=== PATIENT | male | born 1930 | race Caucasian/White ===

== ENCOUNTER 2018-04-14 15:37 | Emergency (ER) | payer OTHER ==
--- OUTSIDE RECORDS SUMMARY | 2018-04-14 15:39 | XMS REPORT | Clinical Summary ---
:1930 Author Organization [facility] Address [address] [place] [address] Phone Care Team Providers Name Role Phone Unavailable Primary Care Provider Unavailable Allergies Active Allergy Reactions Severity Noted Date Comments Amoxicillin Hives High 02/21/2017 Current Medications Prescription Sig. Disp. Refills Start Date End Date Status dextromethorphan-quinidin Take 1 Active e (NUEDEXTA) 20-10 mg Cap capsule by mouth 2 (two) times daily. omeprazole (PRILOSEC) 20 Take 20 mg by Active MG capsule mouth daily. potassium chloride Take 10 mEq Active (KLOR-CON) 10 MEQ CR by mouth tablet daily. hydroCHLOROthiazide Take 25 mg by Active (HYDRODIURIL) 25 MG mouth daily. tablet tamsulosin (FLOMAX) 0.4 Take 0.4 mg Active mg Cp24 24 hr capsule by mouth daily. doxazosin (CARDURA) 2 MG Take 2 mg by Active tablet mouth 2 (two) times daily. gabapentin (NEURONTIN) Take 600 mg Active 300 MG capsule by mouth nightly. donepezil (ARICEPT) 10 MG Take 10 mg by Active tablet mouth nightly. calcium carbonate Take 600 mg Active (OS-AVINASH) 600 mg (1,500 by mouth mg) Tab daily. omega-3 fatty acids-fish Take 2 g by Active oil 340-1,000 mg Cap per mouth 2 (two) capsule times daily. sodium chloride (LELE Place 1 drop Active 128) 2 % ophthalmic into both solution eyes 2 (two) times daily. white petrolatum-mineral Apply 1 drop Active oil (WHITE PETROLATUM) to eye(s) 2 80-20 % Oint (two) times daily. amLODIPine (NORVASC) 10 Take 1 tablet 30 tablet 0 02/24/2017 Active MG tablet (10 mg total) by mouth daily. sodium chloride 0.65% 1 spray by 15 mL 0 02/24/2017 02/24/2018 (OCEAN) 0.65 % nasal Nasal route spray as needed for Congestion. Active Problems Problem Noted Date Atrial fibrillation ([facility]) 02/22/2017 Lymphoma ([facility]) 02/22/2017 Sjogren's disease ([facility]) 02/22/2017 Early onset Alzheimer's dementia 02/22/2017 Hypertension, essential 02/22/2017 BPH (benign prostatic hyperplasia) 02/22/2017 Dysphagia 02/22/2017 Physical deconditioning 02/22/2017 Brain bleed ([facility]) 02/21/2017 Social History Tobacco Use Types Packs/Day Years Used Date Never Smoker Sex Assigned at Date Recorded Not on file Last Filed Vital Signs Not on file Plan of Treatment Not on file Results EKG-SCANNED (04/13/2017 10:44 AM)after 04/13/2017
--- OUTSIDE RECORDS SUMMARY | 2018-04-14 15:39 | XMS REPORT ---
:1930 Author Organization [facility] Address [address] [place] [address] Care Team Providers Name Role Phone FEDERICO JOY Unavailable Unavailable Problems This patient has no known problems. Allergies, Adverse Reactions, Alerts This patient has no known allergies or adverse reactions. Medications This patient has no known medications. Results Test Description Test Time Test Comments Text Results Atomic Results Result Comments CBC W/PLT COUNT & AUTO DIFFERENTIAL 2017-02-24 06:52:00 Test Item Value Reference Range Comments WHITE BLOOD CELL COUNT (BEAKER) (test tkvz=909) 5.2 K/ L 4.0-10.0 RED BLOOD CELL COUNT (BEAKER) (test ilqd=795) 4.14 M/ L 4.20-5.80 HEMOGLOBIN (BEAKER) (test xipy=895) 12.8 GM/DL 13.0-16.8 HEMATOCRIT (BEAKER) (test sxmj=237) 37.2 % 40.0-50.0 MEAN CORPUSCULAR VOLUME (BEAKER) (test umyy=972) 89.9 fL 82.0-98.0 MEAN CORPUSCULAR HEMOGLOBIN (BEAKER) (test jazl=296) 30.9 pg 27.0-33.0 MEAN CORPUSCULAR HEMOGLOBIN CONC (BEAKER) (test cftr=369) 34.4 GM/DL 32.0- 36.0 RED CELL DISTRIBUTION WIDTH (BEAKER) (test pvrh=611) 16.4 % 10.3-14.2 PLATELET COUNT (BEAKER) (test prcx=041) 133 K/CU MM 150-430 MEAN PLATELET VOLUME (BEAKER) (test onaj=336) 7.0 fL 6.5-10.5 NUCLEATED RED BLOOD CELLS (BEAKER) (test uheb=609) 0 /100 WBC 0-0 NEUTROPHILS RELATIVE PERCENT (BEAKER) (test bbep=469) 72 % LYMPHOCYTES RELATIVE PERCENT (BEAKER) (test cjdf=667) 21 % MONOCYTES RELATIVE PERCENT (BEAKER) (test wnnt=751) 5 % EOSINOPHILS RELATIVE PERCENT (BEAKER) (test hpuk=010) 1 % BASOPHILS RELATIVE PERCENT (BEAKER) (test sfso=360) 0 % NEUTROPHILS ABSOLUTE COUNT (BEAKER) (test hubv=486) 3.77 K/ L 1.80-8.00 LYMPHOCYTES ABSOLUTE COUNT (BEAKER) (test gcqw=491) 1.11 K/ L 1.48-4.50 MONOCYTES ABSOLUTE COUNT (BEAKER) (test aypa=769) 0.28 K/ L 0.00-1.30 EOSINOPHILS ABSOLUTE COUNT (BEAKER) (test jjpp=886) 0.06 K/ L 0.00-0.50 BASOPHILS ABSOLUTE COUNT (BEAKER) (test plpl=442) 0.00 K/ L 0.00-0.20 0.00POCT-GLUCOSE [id number] 21:13:00 Test Item Value Reference Range Comments POC-GLUCOSE METER (BEAKER) 116 mg/dL 70-110 TESTED AT [address] (test xsmh=8920) [place] [address] POCT-GLUCOSE [id number] 12:11:00 Test Item Value Reference Range Comments POC-GLUCOSE METER (BEAKER) 120 mg/dL 70-110 TESTED AT [address] (test creh=1783) [place] [address] POCT-GLUCOSE [id number] 08:22:00 Test Item Value Reference Range Comments POC-GLUCOSE METER (BEAKER) 114 mg/dL 70-110 TESTED AT [address] (test dnld=5417) [place] [address] BASIC METABOLIC [id number] 05:49:00 Test Item Value Reference Range Comments SODIUM (BEAKER) (test 134 meq/L 136-145 nwkz=299) POTASSIUM (BEAKER) (test 3.6 meq/L 3.5-5.1 ybvv=537) CHLORIDE (BEAKER) (test 102 meq/L 98-107 xsqs=341) CO2 (BEAKER) (test 23 meq/L 22-29 ivrg=041) BLOOD UREA NITROGEN 24 mg/dL 7-21 (BEAKER) (test gytt=629) CREATININE (BEAKER) (test 1.09 mg/dL 0.57-1.25 epdc=787) GLUCOSE RANDOM (BEAKER) 95 mg/dL 70-105 (test wxvl=849) CALCIUM (BEAKER) (test 8.2 mg/dL 8.4-10.2 iupk=813) EGFR (BEAKER) (test 64 mL/min/1.73 sq m ESTIMATED GFR IS NOT httt=7244) ACCURATE CREATININE CLEARANCE IN PREDICTING GLOMERULAR FILTRATION RATE. ESTIMATED GFR IS NOT APPLICABLE FOR DIALYSIS PATIENTS. Once on admission and Daily AM afterwardsCBC W/PLT COUNT & AUTO [id number] 05:30:00 Test Item Value Reference Range Comments WHITE BLOOD CELL COUNT (BEAKER) (test jcwn=665) 5.0 K/ L 4.0-10.0 RED BLOOD CELL COUNT (BEAKER) (test zxif=082) 3.96 M/ L 4.20-5.80 HEMOGLOBIN (BEAKER) (test jxnb=016) 12.2 GM/DL 13.0-16.8 HEMATOCRIT (BEAKER) (test smoh=628) 35.6 % 40.0-50.0 MEAN CORPUSCULAR VOLUME (BEAKER) (test iqtf=341) 90.1 fL 82.0-98.0 MEAN CORPUSCULAR HEMOGLOBIN (BEAKER) (test 30.8 pg 27.0-33.0 amzp=019) MEAN CORPUSCULAR HEMOGLOBIN CONC (BEAKER) (test 34.2 GM/DL 32.0-36.0 vyew=014) RED CELL DISTRIBUTION WIDTH (BEAKER) (test 16.3 % 10.3-14.2 kndc=570) PLATELET COUNT (BEAKER) (test qghf=018) 136 K/CU MM 150-430 MEAN PLATELET VOLUME (BEAKER) (test twvc=950) 7.2 fL 6.5-10.5 NUCLEATED RED BLOOD CELLS (BEAKER) (test 0 /100 WBC 0-0 vqle=913) NEUTROPHILS RELATIVE PERCENT (BEAKER) (test 61 % bgpo=236) LYMPHOCYTES RELATIVE PERCENT (BEAKER) (test 21 % upvq=437) MONOCYTES RELATIVE PERCENT (BEAKER) (test 17 % ylsr=345) EOSINOPHILS RELATIVE PERCENT (BEAKER) (test 1 % dlkb=739) BASOPHILS RELATIVE PERCENT (BEAKER) (test 0 % cduw=213) NEUTROPHILS ABSOLUTE COUNT (BEAKER) (test 3.02 K/ L 1.80-8.00 cdkk=125) LYMPHOCYTES ABSOLUTE COUNT (BEAKER) (test 1.06 K/ L 1.48-4.50 lhxy=003) MONOCYTES ABSOLUTE COUNT (BEAKER) (test 0.84 K/ L 0.00-1.30 uuqa=118) EOSINOPHILS ABSOLUTE COUNT (BEAKER) (test 0.04 K/ L 0.00-0.50 qqcq=259) BASOPHILS ABSOLUTE COUNT (BEAKER) (test 0.01 K/ L 0.00-0.20 vumg=489) 0.00POCT-GLUCOSE [id number] 22:59:00 Test Item Value Reference Range Comments POC-GLUCOSE METER (BEAKER) 103 mg/dL 70-110 TESTED AT [address] (test laer=7761) [place] [address] POCT-GLUCOSE [id number] 17:41:00 Test Item Value Reference Range Comments POC-GLUCOSE METER (BEAKER) 126 mg/dL 70-110 TESTED AT [address] (test bfvu=9599) [place] [address] POCT-GLUCOSE [id number] 13:19:00 Test Item Value Reference Range Comments POC-GLUCOSE METER (BEAKER) 112 mg/dL 70-110 TESTED AT [address] (test qwxq=2796) [place] [address] HEMOGLOBIN [id number] 08:58:00 Test Item Value Reference Range Comments HEMOGLOBIN A1C (BEAKER) (test vcwm=495) 5.4 % 4.3-6.1 POCT-GLUCOSE [id number] 07:53:00 Test Item Value Reference Range Comments POC-GLUCOSE METER (BEAKER) 103 mg/dL 70-110 TESTED AT [address] (test gulh=9686) [place] [address] [id number] 04:13:00 Test Item Value Reference Range Comments PHOSPHORUS (BEAKER) (test savs=130) 2.2 mg/dL 2.3-4.7 Once on admission and Daily AM afterwardsOnce on admission and Daily AM afterwardsOnce on admission and Daily AM [id number] 04:13:00 Test Item Value Reference Range Comments MAGNESIUM (BEAKER) (test chgk=744) 1.8 mg/dL 1.6-2.6 Once on admission and Daily AM afterwardsOnce on admission and Daily AM afterwardsOnce on admission and Daily AM afterwardsBASIC METABOLIC [id number] 04:13:00 Test Item Value Reference Range Comments SODIUM (BEAKER) (test 139 meq/L 136-145 resj=100) POTASSIUM (BEAKER) (test 3.7 meq/L 3.5-5.1 teti=293) CHLORIDE (BEAKER) (test 106 meq/L 98-107 fcly=833) CO2 (BEAKER) (test 26 meq/L 22-29 vyoo=032) BLOOD UREA NITROGEN 27 mg/dL 7-21 (BEAKER) (test zzvx=843) CREATININE (BEAKER) (test 1.17 mg/dL 0.57-1.25 kazu=120) GLUCOSE RANDOM (BEAKER) 95 mg/dL 70-105 (test gfzy=423) CALCIUM (BEAKER) (test 8.2 mg/dL 8.4-10.2 wiiq=383) EGFR (BEAKER) (test 59 mL/min/1.73 sq m ESTIMATED GFR IS NOT vdge=4830) ACCURATE CREATININE CLEARANCE IN PREDICTING GLOMERULAR FILTRATION RATE. ESTIMATED GFR IS NOT APPLICABLE FOR DIALYSIS PATIENTS. Once on admission and Daily AM afterwardsOnce on admission and Daily AM afterwardsOnce on admission and Daily AM afterwardsCBC W/PLT COUNT & AUTO [id number] 03:57:00 Test Item Value Reference Range Comments WHITE BLOOD CELL COUNT (BEAKER) (test bjkz=200) 6.9 K/ L 4.0-10.0 RED BLOOD CELL COUNT (BEAKER) (test jwmc=251) 3.71 M/ L 4.20-5.80 HEMOGLOBIN (BEAKER) (test ugdh=544) 11.7 GM/DL 13.0-16.8 HEMATOCRIT (BEAKER) (test mtch=214) 33.7 % 40.0-50.0 MEAN CORPUSCULAR VOLUME (BEAKER) (test ntuh=303) 90.8 fL 82.0-98.0 MEAN CORPUSCULAR HEMOGLOBIN (BEAKER) (test 31.4 pg 27.0-33.0 eqjn=198) MEAN CORPUSCULAR HEMOGLOBIN CONC (BEAKER) (test 34.6 GM/DL 32.0-36.0 onhn=712) RED CELL DISTRIBUTION WIDTH (BEAKER) (test 14.3 % 10.3-14.2 fcnq=924) PLATELET COUNT (BEAKER) (test yevv=120) 122 K/CU MM 150-430 MEAN PLATELET VOLUME (BEAKER) (test yvjt=353) 6.6 fL 6.5-10.5 NUCLEATED RED BLOOD CELLS (BEAKER) (test 0 /100 WBC 0-0 ozyc=842) NEUTROPHILS RELATIVE PERCENT (BEAKER) (test 63 % hceb=969) LYMPHOCYTES RELATIVE PERCENT (BEAKER) (test 22 % mqkh=711) MONOCYTES RELATIVE PERCENT (BEAKER) (test 14 % jcco=456) EOSINOPHILS RELATIVE PERCENT (BEAKER) (test 1 % wlzm=752) BASOPHILS RELATIVE PERCENT (BEAKER) (test 0 % lgkr=977) NEUTROPHILS ABSOLUTE COUNT (BEAKER) (test 4.35 K/ L 1.80-8.00 ltgf=826) LYMPHOCYTES ABSOLUTE COUNT (BEAKER) (test 1.53 K/ L 1.48-4.50 ccdj=970) MONOCYTES ABSOLUTE COUNT (BEAKER) (test 0.96 K/ L 0.00-1.30 knzr=771) EOSINOPHILS ABSOLUTE COUNT (BEAKER) (test 0.05 K/ L 0.00-0.50 ecjx=733) BASOPHILS ABSOLUTE COUNT (BEAKER) (test 0.00 K/ L 0.00-0.20 wftg=688) 0.00POCT-GLUCOSE [id number] 00:35:00 Test Item Value Reference Range Comments POC-GLUCOSE METER (BEAKER) 109 mg/dL 70-110 TESTED AT [address] (test rurd=0129) [place] [id number] POCT-GLUCOSE [id number] 21:03:00 Test Item Value Reference Range Comments POC-GLUCOSE METER (BEAKER) 149 mg/dL 70-110 TESTED AT [address] (test ivdx=5594) [place] [id number] POCT-GLUCOSE [id number] 12:26:00 Test Item Value Reference Range Comments POC-GLUCOSE METER (BEAKER) 153 mg/dL 70-110 TESTED AT [address] (test iiza=2771) [place] [address] [id number] 10:44:00 Test Item Value Reference Range Comments RPR SCREEN (BEAKER) (test qsom=554) Nonreactive Nonreactive SEDIMENTATION [id number] 09:43:00 Test Item Value Reference Range Comments SEDIMENTATION RATE, ERYTHROCYTE (BEAKER) (test 33 mm/HR 0-40 rsjq=132) VITAMIN [id number] 09:34:00 Test Item Value Reference Range Comments VITAMIN B12 (BEAKER) (test tofs=670) 317 pg/mL 213-816 TSH/FREE T4 IF [id number] 09:34:00 Test Item Value Reference Range Comments THYROID STIMULATING HORMONE (BEAKER) (test 0.69 uIU/mL 0.35-4.94 dhkr=593) TROPONIN [id number] 09:03:00 Test Item Value Reference Range Comments TROPONIN I (BEAKER) (test xwxj=969) 0.01 ng/mL 0.00-0.03 Effective 06/24/2014: Reference Range ChangeNew: 0.00-0.03 Previous 0.00- 0.15Troponin I (TnI) levels must be interpreted in the context of the presenting symptoms and the clinical findings. Elevated TnI levels indicate myocardial damage, but are not specific for ischemic heart disease. Elevated TnI levels are seen in patients with other cardiac conditions (including myocarditis and congestive heartfailure), and slight TnI elevations occur in patients with other conditions, including sepsis, renalfailure, acidosis, acute neurological disease, and persistent tachyarrhythmia.Once on admission and Daily AM afterwardsLIPID [id number] 08:56:00 Test Item Value Reference Range Comments TRIGLYCERIDES (BEAKER) (test qgod=233) 46 mg/dL CHOLESTEROL (BEAKER) (test vqdt=088) 201 mg/dL HDL CHOLESTEROL (BEAKER) (test lfge=652) 55 mg/dL LDL CHOLESTEROL CALCULATED (BEAKER) (test 137 mg/dL mgoe=634) Triglyceride Reference Range: Low Risk <150 Borderline 150- 199 High Risk 200-499 Very High Risk >=500Cholesterol Reference Range: Low Risk <200 Borderline 200-239 High Risk > 240HDL Cholesterol Reference Range: Low Risk >=60 High Risk <40LDL Cholesterol Reference Range: Optimal <100 Near Optimal 100-129 Borderline 130-159 High 160-189 Very High >=190 Once on admission and Daily AM afterwardsBASIC METABOLIC [id number] 08:56:00 Test Item Value Reference Range Comments SODIUM (BEAKER) (test 137 meq/L 136-145 apmg=317) POTASSIUM (BEAKER) (test 3.8 meq/L 3.5-5.1 fxfw=520) CHLORIDE (BEAKER) (test 101 meq/L 98-107 mjig=162) CO2 (BEAKER) (test 24 meq/L 22-29 xczk=365) BLOOD UREA NITROGEN 23 mg/dL 7-21 (BEAKER) (test xdbx=125) CREATININE (BEAKER) (test 1.12 mg/dL 0.57-1.25 vzwk=628) GLUCOSE RANDOM (BEAKER) 132 mg/dL 70-105 (test gpyb=848) CALCIUM (BEAKER) (test 8.5 mg/dL 8.4-10.2 kpoo=571) EGFR (BEAKER) (test 62 mL/min/1.73 sq m ESTIMATED GFR IS NOT ztgw=8994) ACCURATE CREATININE CLEARANCE IN PREDICTING GLOMERULAR FILTRATION RATE. ESTIMATED GFR IS NOT APPLICABLE FOR DIALYSIS PATIENTS. Once on admission and Daily AM afterwardsHEPATIC FUNCTION [id number] 08:55: 00 Test Item Value Reference Range Comments TOTAL PROTEIN (BEAKER) (test miwn=987) 6.7 gm/dL 6.0-8.3 ALBUMIN (BEAKER) (test xhco=2572) 3.9 g/dL 3.5-5.0 BILIRUBIN TOTAL (BEAKER) (test fpon=888) 0.6 mg/dL 0.2-1.2 BILIRUBIN DIRECT (BEAKER) (test guwx=219) 0.2 mg/dL 0.1-0.5 ALKALINE PHOSPHATASE (BEAKER) (test fjyf=256) 71 U/L 40-150 AST (SGOT) (BEAKER) (test djaq=466) 18 U/L 5-34 ALT (SGPT) (BEAKER) (test ttuh=744) 19 U/L 6-55 [id number] 08:38:00 Test Item Value Reference Range Comments PARTIAL THROMBOPLASTIN TIME (BEAKER) (test 29.7 seconds 22.5-36.0 mspb=568) PROTHROMBIN [id number] 08:37:00 Test Item Value Reference Range Comments PROTIME (BEAKER) (test zlbn=620) 15.8 seconds 11.7-14.7 INR (BEAKER) (test qgre=887) 1.3 <=5.9 RECOMMENDED COUMADIN/WARFARIN INR THERAPY RANGESSTANDARD DOSE: 2.0 - 3.0 Includes: PROPHYLAXIS forvenous thrombosis, systemic embolization; TREATMENT for venous thrombosis and/or pulmonary embolus.HIGH RISK: Target INR is 2.5-3.5 for patients with mechanical heart valves.CBC W/PLT COUNT & AUTO [id number] 08:35:00 Test Item Value Reference Range Comments WHITE BLOOD CELL COUNT (BEAKER) (test hbei=868) 4.6 K/ L 4.0-10.0 RED BLOOD CELL COUNT (BEAKER) (test qier=306) 4.03 M/ L 4.20-5.80 HEMOGLOBIN (BEAKER) (test jfaj=459) 12.5 GM/DL 13.0-16.8 HEMATOCRIT (BEAKER) (test jixz=284) 36.4 % 40.0-50.0 MEAN CORPUSCULAR VOLUME (BEAKER) (test xwtb=190) 90.4 fL 82.0-98.0 MEAN CORPUSCULAR HEMOGLOBIN (BEAKER) (test 31.1 pg 27.0-33.0 gnvj=593) MEAN CORPUSCULAR HEMOGLOBIN CONC (BEAKER) (test 34.5 GM/DL 32.0-36.0 rmax=661) RED CELL DISTRIBUTION WIDTH (BEAKER) (test 14.3 % 10.3-14.2 sumf=709) PLATELET COUNT (BEAKER) (test pawt=961) 129 K/CU MM 150-430 MEAN PLATELET VOLUME (BEAKER) (test xczz=708) 6.6 fL 6.5-10.5 NUCLEATED RED BLOOD CELLS (BEAKER) (test 0 /100 WBC 0-0 ysya=126) NEUTROPHILS RELATIVE PERCENT (BEAKER) (test 83 % caqb=376) LYMPHOCYTES RELATIVE PERCENT (BEAKER) (test 13 % wakt=609) MONOCYTES RELATIVE PERCENT (BEAKER) (test 4 % otsu=541) EOSINOPHILS RELATIVE PERCENT (BEAKER) (test 0 % azav=868) BASOPHILS RELATIVE PERCENT (BEAKER) (test 0 % oznf=714) NEUTROPHILS ABSOLUTE COUNT (BEAKER) (test 3.79 K/ L 1.80-8.00 odes=761) LYMPHOCYTES ABSOLUTE COUNT (BEAKER) (test 0.58 K/ L 1.48-4.50 eduf=540) MONOCYTES ABSOLUTE COUNT (BEAKER) (test 0.16 K/ L 0.00-1.30 phfw=871) EOSINOPHILS ABSOLUTE COUNT (BEAKER) (test 0.01 K/ L 0.00-0.50 lfar=208) BASOPHILS ABSOLUTE COUNT (BEAKER) (test 0.01 K/ L 0.00-0.20 argb=508) 0.00
[2018-04-14 16:26] LABS: Absolute Lymphocytes (CBC) 1.1 K/uL (0.7-4.9); Absolute Monocytes 0.8 K/uL (0.1-1.3); Absolute Neutrophil 5.8 K/uL (1.8-8.0); Basophils % 0.7 % (0-1.3); Eosinophils % 2.2 % (0-4.4); Hematocrit 37.3 % (39.6-49.0); Lymphocytes % 14.1 % (15.3-44.8); MCH 31.3 pg (27.0-35.0); MCV 90.4 fL (80-100); MPV 8.1 fL (7.6-11.3); Monocytes % 10.2 % (3.3-12.3); RBC Red Blood Cell Count 4.13 M/uL (4.33-5.43)
[2018-04-14 16:36] LABS: Protime INR 0.99
[2018-04-14 16:37] LABS: ALT/SGPT 15 U/L (12-78); AST/SGOT 21 U/L (15-37); Albumin 2.8 g/dL (3.4-5.0); Alkaline Phosphatase 119 U/L (45-117); BUN Blood Urea Nitrogen 20 mg/dL (7-18); Bicarbonate 26 mmol/L (21-32); Bilirubin Direct < 0.1 mg/dL (0-0.2); Bilirubin Total 0.4 mg/dL (0.2-1.0); CKMB Creatine Kinase MB < 1.0 ng/mL (0.3-3.6); Creatine Phosphokinase 52 U/L (39-308); Glucose Level 130 mg/dL (74-106); Lipase 131 U/L (73-393); Potassium 4.1 mmol/L (3.5-5.1); Protein, Total 6.7 g/dL (6.4-8.2); Sodium Level 139 mmol/L (136-145); Troponin (Emerg Dept Use Only) < 0.02 ng/mL (0.0-0.045)
[2018-04-14] MEDS ORDERED: NA CHLORIDE 0.9% 500 ML ONE ×2 (16:42→17:18)
--- NOTE | 2018-04-14 16:58 | RAD REPORT ---
EXAM DESCRIPTION: RAD - Chest Single View - 04/14/2018 4:36 pm CLINICAL HISTORY: tachycardia Chest pain. COMPARISON: Chest Single View dated 02/21/2017; Chest Single View dated 09/27/2016; Chest Single View dated 04/09/2016; Chest Single View dated 04/02/2016 FINDINGS: Portable technique limits examination quality. The lungs are underinflated resulting in vascular crowding. The heart is mildly moderately enlarged. No displaced fractures. IMPRESSION: No acute intrathoracic process suspected.
[2018-04-14] MEDS ORDERED: NA CHLORIDE 0.9% 1,000 ML ONE (18:12)
[2018-04-14 18:20] LABS: Urine Blood NEGATIVE (NEG); Urine Glucose NEGATIVE (NEG); Urine Protein NEGATIVE (NEG); Urine Specific Gravity 1.025 (1.005-1.030)
[2018-04-14 18:23] LABS: Urine Bacteria <20 /HPF (NONE SEEN); Urine Culture Reflex Order NOT NEEDED; Urine Mucus 1+ /HPF (NONE SEEN); Urine RBC <5 /HPF (NONE SEEN)
--- NOTE | 2018-04-14 20:37 | ER ---
Nurse's Notes [facility] Name: Isis Schultz Age: 87 yrs Sex: Male : 1930 Arrival Date: 04/14/2018 Time: 15:40 Bed 18 Private MD: Brian Leonard C Diagnosis: Chronic atrial fibrillation Presentation: 04/14 15:40 Presenting complaint: EMS states: called out to senior living for HTN, SOB, elevated HR, em and hyperglycemia, VS per EMS BP 130/70, HR 120, RR 24, BGL 158, pt denies CP, no apparent distress noted. Transition of care: patient was not received from another setting of care. Onset of symptoms was April 14, 2018. Risk Assessment: Do you want to hurt yourself or someone else? Patient reports no desire to harm self or others. Initial Sepsis Screen: Does the patient meet any 2 criteria? RR > 20 per min. Temp <36.0*C (96.8*F)) or > 38.3*C (100.4*F). HR > 90 bpm. Yes Does the patient have a suspected source of infection? No. Patient's initial sepsis screen is negative. Care prior to arrival: None. 15:40 Method Of Arrival: EMS: [facility] em 15:40 Acuity: CAROL ANN 2 iw Triage Assessment: 15:46 General: Appears in no apparent distress. comfortable, Behavior is calm, cooperative. em Pain: Denies pain. Historical: - Allergies: 15:46 Amoxicillin; em - PMHx: 15:46 Atrial Fib; GERD; Hypertension; Kidney stones; LYMPHOMA; melanoma; sjoger syndrome; em - Immunization history:: Adult Immunizations up to date. - Social history:: Smoking status: unknown. - Ebola Screening: : Patient negative for fever greater than or equal to 101.5 degrees Fahrenheit, and additional compatible Ebola Virus Disease symptoms Patient denies exposure to infectious person Patient denies travel to an Ebola-affected area in the 21 days before illness onset No symptoms or risks identified at this time. Screenin:48 Abuse screen: no apparent signs noted. Nutritional screening: Difficulty em chewing/swallowing? Yes. Tuberculosis screening: No symptoms or risk factors identified. Fall Risk None identified. Assessment: 15:50 General: Appears in no apparent distress. comfortable, Behavior is calm, cooperative. em Pain: Denies pain. Neuro: Level of Consciousness is awake, alert, obeys commands, Oriented to person, place. Cardiovascular: Denies chest pain, Heart tones S1 S2 present Capillary refill < 3 seconds Patient's skin is warm and dry. Rhythm is atrial fibrillation Chest pain is denied. Respiratory: Airway is patent Respiratory effort is even, Respiratory pattern is regular, tachypnea Breath sounds are clear bilaterally. GI: Abdomen is flat, Abd is soft and non tender X 4 quads. Patient currently denies diarrhea, nausea, vomiting. : : No signs and/or symptoms were reported regarding the genitourinary system. EENT: No signs and/or symptoms were reported regarding the EENT system. Derm: mass noted to the top of the head, pt states it is skin cancer. Musculoskeletal: Capillary refill < 3 seconds. 16:20 Reassessment: Patient appears in no apparent distress at this time. I agree with above iw assessment by Frederick France LVN. 16:46 Reassessment: Received lab alert for Lactate 3.0, sepsis protocol has joellen activated. rb1 MARELY Mack has been notified. 16:50 Reassessment: Patient appears in no apparent distress at this time. Patient and/or em family updated on plan of care and expected duration. Pain level reassessed. 17:40 Reassessment: Patient appears in no apparent distress at this time. Patient and/or em family updated on plan of care and expected duration. Pain level reassessed. Patient is alert, oriented x 3, equal unlabored respirations, skin warm/dry/pink. Patient denies pain at this time. Patient states symptoms have improved. 18:30 Reassessment: Patient appears in no apparent distress at this time. Patient and/or em family updated on plan of care and expected duration. Pain level reassessed. Patient is alert, oriented x 3, equal unlabored respirations, skin warm/dry/pink. Patient denies pain at this time. Patient states symptoms have improved. 19:20 General: Appears in no apparent distress. comfortable, Behavior is calm, cooperative. ao Pain: Denies pain. Neuro: Level of Consciousness is confused, Oriented to person, place, Moves all extremities. Cardiovascular: Denies chest pain, shortness of breath, Capillary refill < 3 seconds Patient's skin is warm and dry. Respiratory: Airway is patent Respiratory effort is even, unlabored, Respiratory pattern is regular. GI: Abdomen is flat. : No signs and/or symptoms were reported regarding the genitourinary system. EENT: No signs and/or symptoms were reported regarding the EENT system. Derm: Skin is intact, Skin is pink, warm \T\ dry. normal, Skin temperature is warm. Musculoskeletal: Capillary refill < 3 seconds. 20:23 Reassessment: Patient appears in no apparent distress at this time. Patient and/or ao family updated on plan of care and expected duration. Pain level reassessed. Patient is alert, oriented x 3, equal unlabored respirations, skin warm/dry/pink. Patient to be discharge as stated by MIGUEL Ospina. 20:51 Reassessment: Called report to BRIDGETTE Vazquez. Nurse will check in transportation and called ao me back. 21:00 Reassessment: Spoke to Taylor and stated that family wish patient to go in an ambulance ao and that they are aware that they might be getting a bill. 21:31 Reassessment: Patient left ER by ER. patient VS stable at this moment. ao Vital Signs: 15:47 BP 113 / 96; Pulse 120; Resp 24; Temp 100.0(O); Pulse Ox 97% on R/A; Pain 0/10; em 16:30 BP 144 / 66; Pulse 80; Resp 20; Pulse Ox 98% on R/A; dh3 17:31 BP 147 / 86; Pulse 74; Resp 15; Pulse Ox 99% on R/A; dh3 18:29 BP 136 / 61; Pulse 71; Resp 18; Temp 98.7(O); Pulse Ox 99% on R/A; Pain 0/10; em 19:20 BP 159 / 72; Pulse 92; Resp 14; Pulse Ox 97% on R/A; Pain 0/10; ao 20:23 BP 135 / 73; Pulse 70; Resp 15; Pulse Ox 98% on R/A; Pain 0/10; ao ED Course: 15:40 Patient arrived in ED. em 15:40 Phillip Fermin PA is PHCP. cp 15:40 Carlos Levy MD is Attending Physician. cp 15:45 EKG done, by ED staff, reviewed by Carlos Levy MD. em 15:47 Arm band placed on. em 15:48 Patient has correct armband on for positive identification. Placed in gown. Bed in low em position. Call light in reach. Side rails up X2. 15:50 First set of blood cultures drawn by me, Wound culture swab sent to lab. iw 16:02 Initial lab(s) drawn, by me, sent to lab. Inserted saline lock: 20 gauge in left iw forearm, using aseptic technique. Blood collected. 16:20 Frederick France LVN is Primary Nurse. em 16:20 No provider procedures requiring assistance completed. em 16:34 X-ray completed. Portable x-ray completed in exam room. Patient tolerated procedure la2 well. 16:36 Chest Single View XRAY In Process Unspecified. EDMS 16:54 Brian Leonard MD is Private Physician. iw 17:30 Straight cath inserted, using sterile technique, 18 Fr. Specimen obtained. Returned em clear yellow urine. Patient tolerated well. 17:30 Urine collected: straight cath specimen, clear, Amount Returned: 200mL. em 18:05 Triage completed. iw 20:35 Brian Leonard MD is Referral Physician. cp 21:32 IV discontinued, intact, bleeding controlled, No redness/swelling at site. Pressure ao dressing applied. Administered Medications: 16:47 Drug: NS 0.9% 500 ml Route: IV; Rate: bolus; Site: left femoral; em 17:35 Follow up: IV Status: Completed infusion; IV Intake: 500ml em 17:20 Drug: NS 0.9% 500 ml Route: IV; Rate: bolus; Site: left forearm; em 18:00 Follow up: IV Status: Completed infusion; IV Intake: 500ml em 18:25 Drug: NS 0.9% 1000 ml Route: IV; Rate: 75 ml/hr; Site: left forearm; em Intake: 17:35 IV: 500ml; Total: 500ml. em 18:00 IV: 500ml; Total: 1000ml. em Outcome: 20:36 Discharge ordered by . cp 21:31 Discharged to senior living. Report called to BRIDGETTE Vazquezwood casket assembler form completed. ao Valuables list done. Patient transported by EMS 21:31 Condition: stable 21:31 Discharge instructions given to patient, senior living, EMS, Instructed on discharge instructions, follow up and referral plans. Demonstrated understanding of instructions, follow-up care, Lab result send to senior living 21:33 Patient left the ED. ao Addendum: 04/21/2018 12:49 Addendum: Culture Results: Positive wound culture. Phone call Attempt #2 left voicemail.a a5 Signatures: Dispatcher [employer] EDFrederick Meyer, BREAKDOWN WORKER BREAKDOWN WORKER em Zara Villeda RN Libby Barron RN RN aa5 Gabriela Montano RN RN ss Phillip Fermin PA PA cp Barber, Rebecca RN RN rb1 Angelo Gardner RN RN Teresa Gallo 3 Melissa Bernal Corrections: (The following items were deleted from the chart) 04/14 15:47 15:47 BP 113 / 96; Pulse 120bpm; Resp 24bpm; Pulse Ox 97% RA; Temp 100.0F Oral; Pain em 0/10; em 21:31 20:51 Reassessment: Called report to BRIDGETTE Jamil. Nurse will check in transportation and ao called me back. ao 04/22 08:05 04/18/2018 09:47 Addendum: Culture Results: Positive urine culture. No further action aa5 required. Bacteria sensitive to prescribed antibiotic. ss
--- NOTE | 2018-04-14 20:37 | EDPHYS ---
Physician Documentation [facility] Name: Isis Schultz Age: 87 yrs Sex: Male : 1930 Arrival Date: 04/14/2018 Time: 15:40 Bed 18 Private MD: Brian Leonard C ED Physician Carlos Levy HPI: 04/14 15:52 This 87 yrs old Male presents to ER via EMS with complaints of General cp Weakness. 15:52 Onset: The symptoms/episode began/occurred today. cp 15:52 EMS reports they were called for patient having general weakness, elevated HR, elevated cp blood glucose, and elevated blood pressure today. 15:52 Associated signs and symptoms: Pertinent positives: shortness of breath, Pertinent cp negatives: abdominal pain, chest pain, cough, diarrhea, fever, headache, vomiting. Historical: - Allergies: 15:46 Amoxicillin; em - PMHx: 15:46 Atrial Fib; GERD; Hypertension; Kidney stones; LYMPHOMA; melanoma; sjoger syndrome; em - Immunization history:: Adult Immunizations up to date. - Social history:: Smoking status: unknown. - Ebola Screening: : Patient negative for fever greater than or equal to 101.5 degrees Fahrenheit, and additional compatible Ebola Virus Disease symptoms Patient denies exposure to infectious person Patient denies travel to an Ebola-affected area in the 21 days before illness onset No symptoms or risks identified at this time. ROS: 15:55 Constitutional: Positive for poor PO intake, Negative for body aches, chills, fever. cp 15:55 Cardiovascular: Negative for chest pain. cp 15:55 Respiratory: Positive for shortness of breath, Negative for cough, wheezing. 15:55 Abdomen/GI: Negative for abdominal pain, vomiting, diarrhea, constipation, black/tarry stool, rectal bleeding. 15:55 Neuro: Positive for general weakness, Negative for altered mental status, headache. 15:55 All other systems are negative. Exam: 16:00 ECG was reviewed by the Attending Physician. cp 16:00 Constitutional: The patient appears in no acute distress, alert, awake, cp non-diaphoretic, non-toxic, well developed, well nourished. 16:00 Head/face: Noted is chronic wound left posterior scalp with mild drainage and mild cp erythema. 16:00 Eyes: Periorbital structures: appear normal, Pupils: equal, round, and reactive to light and accomodation, Extraocular movements: intact throughout, Conjunctiva: normal, no exudate, no injection, Sclera: no appreciated abnormality, Lids and lashes: appear normal, bilaterally. 16:00 ENT: External ear(s): are unremarkable, Ear canal(s): are normal, clear, TM's: bulging, is not appreciated, bilaterally, dullness, bilaterally, erythema, is not appreciated, bilaterally, Nose: is normal, Mouth: Lips: dry, Oral mucosa: dry, Posterior pharynx: is normal, airway is patent, no erythema, no exudate, Voice: is normal. 16:00 Neck: ROM/movement: is normal, is supple, without pain, no range of motions limitations, no meningismus, no nuchal rigidity. 16:00 Chest/axilla: Inspection: normal, Palpation: is normal, no crepitus, no tenderness. 16:00 Cardiovascular: Rate: tachycardic, Rhythm: irregularly irregular, Pulses: Pulses are 2+ in right radial artery and left radial artery. JVD: is not appreciated. 16:00 Respiratory: the patient does not display signs of respiratory distress, Respirations: normal, no use of accessory muscles, no retractions, no splinting, no tachypnea, labored breathing, is not present, Breath sounds: are clear throughout, no decreased breath sounds, no stridor, no wheezing. 16:00 Abdomen/GI: Inspection: abdomen appears normal, Bowel sounds: active, all quadrants, Palpation: abdomen is soft and non-tender, in all quadrants, rebound tenderness, is not appreciated, involuntary guarding, is not appreciated. 16:00 Back: pain, is absent. 16:00 Neuro: Orientation: to person, place \T\ time. Mentation: lucid, able to follow commands. Vital Signs: 15:47 BP 113 / 96; Pulse 120; Resp 24; Temp 100.0(O); Pulse Ox 97% on R/A; Pain 0/10; em 16:30 BP 144 / 66; Pulse 80; Resp 20; Pulse Ox 98% on R/A; dh3 17:31 BP 147 / 86; Pulse 74; Resp 15; Pulse Ox 99% on R/A; dh3 18:29 BP 136 / 61; Pulse 71; Resp 18; Temp 98.7(O); Pulse Ox 99% on R/A; Pain 0/10; em 19:20 BP 159 / 72; Pulse 92; Resp 14; Pulse Ox 97% on R/A; Pain 0/10; ao 20:23 BP 135 / 73; Pulse 70; Resp 15; Pulse Ox 98% on R/A; Pain 0/10; ao MDM: 15:43 Patient medically screened. cp 17:00 Differential diagnosis: URI, UTI, gastroenteritis, sepsis, dehydration, electrolyte cp abnormality. 20:30 Data reviewed: vital signs, nurses notes, lab test result(s), EKG, radiologic studies, cp plain films. 20:30 Test interpretation: by ED physician or midlevel provider: ECG, plain radiologic cp studies. Counseling: I had a detailed discussion with the patient and/or guardian regarding: the historical points, exam findings, and any diagnostic results supporting the discharge/admit diagnosis, lab results, radiology results, the need for outpatient follow up, to return to the emergency department if symptoms worsen or persist or if there are any questions or concerns that arise at home. Response to treatment: the patient's symptoms have markedly improved after treatment, VSS. Patient reports to be feeling better after IV fluids. Will discharge to senior care for continued monitoring. 04/14 15:43 Order name: Wound Culture; Complete Time: 07:22 04/14 15:43 Order name: Urine Culture; Complete Time: 07:22 04/14 15:43 Order name: Urine Microscopic Only; Complete Time: 18:26 04/14 18:27 Interpretation: Reviewed. 04/14 15:43 Order name: Basic Metabolic Panel; Complete Time: 16:39 04/14 16:40 Interpretation: Normal except: GLUC 130; BUN 20; GFR 57; CA 8.1. 04/14 15:43 Order name: Blood Culture Adult (2) 04/14 15:43 Order name: CBC with Diff; Complete Time: 16:39 04/14 16:40 Interpretation: Normal except: RBC 4.13; HGB 12.9; HCT 37.3; MCV 90.4; LYM% 14.1. 04/14 15:43 Order name: Ckmb; Complete Time: 16:39 04/14 15:43 Order name: CPK; Complete Time: 16:39 04/14 15:43 Order name: Lactate; Complete Time: 17:04 cp 04/14 17:05 Interpretation: Abnormal: LAC 3.0. cp 04/14 15:43 Order name: LFT's; Complete Time: 16:39 04/14 17:04 Interpretation: Normal except: ALK 119; ALB 2.8; GLOB 3.9; A/G 0.7. 04/14 15:43 Order name: Lipase; Complete Time: 16:39 04/14 15:43 Order name: Procalcitonin; Complete Time: 17:04 cp 04/14 17:37 Interpretation: Procalcitonin < 0.05; Reviewed. 04/14 15:43 Order name: Protime (+inr); Complete Time: 16:39 04/14 15:43 Order name: Ptt, Activated; Complete Time: 16:39 04/14 15:43 Order name: Cath; Complete Time: 17:39 04/14 15:43 Order name: Troponin (emerg Dept Use Only); Complete Time: 16:39 04/14 16:41 Interpretation: TROPED < 0.02; Reviewed. 04/14 15:43 Order name: Chest Single View XRAY; Complete Time: 17:04 04/14 15:43 Order name: Accucheck; Complete Time: 17:39 04/14 15:43 Order name: Cardiac monitoring; Complete Time: 16:19 04/14 15:43 Order name: EKG - Nurse/Tech; Complete Time: 16:19 04/14 15:43 Order name: IV Saline Lock - Large Bore; Complete Time: 16:19 04/14 15:43 Order name: Labs collected and sent; Complete Time: 16:19 04/14 15:43 Order name: O2 Per Protocol; Complete Time: 16:19 04/14 15:43 Order name: O2 Sat Monitoring; Complete Time: 16:19 04/14 17:41 Order name: Urine Dipstick--Ancillary (enter results); Complete Time: 18:26 eb 04/14 18:26 Interpretation: Reviewed. 04/14 19:39 Order name: Lactate Sepsis 2 HR Follow-up; Complete Time: 20:08 EDMS 04/14 20:09 Interpretation: LACTATE SEPSIS 1.3; Reviewed. 04/14 15:43 Order name: Urine Dipstick-Ancillary (obtain specimen); Complete Time: 17:39 cp EC:00 Rate is 117 beats/min. Rhythm is irregularly irregular. QRS interval is normal. QT cp interval is normal. Interpreted by me. Reviewed by me. Administered Medications: 16:47 Drug: NS 0.9% 500 ml Route: IV; Rate: bolus; Site: left femoral; em 17:35 Follow up: IV Status: Completed infusion; IV Intake: 500ml em 17:20 Drug: NS 0.9% 500 ml Route: IV; Rate: bolus; Site: left forearm; em 18:00 Follow up: IV Status: Completed infusion; IV Intake: 500ml em 18:25 Drug: NS 0.9% 1000 ml Route: IV; Rate: 75 ml/hr; Site: left forearm; em Disposition: 22:00 Chart complete. 04/15 10:02 Co-signature as Attending Physician, Carlos Levy MD. rn Disposition: 04/14/18 20:36 Discharged to Home. Impression: Chronic atrial fibrillation. - Condition is Stable. - Discharge Instructions: Atrial Fibrillation. - Medication Reconciliation Form, Thank You Letter, Antibiotic Education, Prescription Opioid Use, SBAR form form. - Follow up: Brian Leonard MD; When: 1 - 2 days; Reason: Recheck today's complaints. - Problem is new. - Symptoms have improved. Signatures: Dispatcher [employer] [facility] Frederick France, FARM MACHINERY ENGINE MECHANIC FARM MACHINERY ENGINE MECHANIC Carlos Santillan MD MD rn Phillip Fermin PA PA Angelo Gardner, RN RN ao Corrections: (The following items were deleted from the chart) 04/14 16:40 16:39 Normal except: GLUC 130; BUN 20; GFR 57. [facility] :09 20:08 Reviewed. [facility] 21:02 19:12 LACTATE+C.LAB.BRZ ordered. [facility] EDMO 21:33 20:36 04/14/2018 20:36 Discharged to Home. Impression: Chronic atrial fibrillation. ao Condition is Stable. Forms are Medication Reconciliation Form, Thank You Letter, Antibiotic Education, Prescription Opioid Use. Follow up: Brian Leonard; When: 1 - 2 days; Reason: Recheck today's complaints. Problem is new. Symptoms have improved. 04/15 20:08 04/14 15:52 EMS reports they were called due to concerns for patient having elevated cp blood glucose, low blood pressure, general weakness today. cp
[2018-04-14 21:53] VITALS: TEMP 98.7
[2018-04-14 21:56] VITALS: BP 135/73; O2SAT 98
--- NOTE | 2018-04-15 08:53 | EKG ---
Test Date: 2018-04-14 Test Time: 15:55:12 Lung Puller: GRACE MEASUREMENT RESULTS: Intervals: Rate: 117 MT: QRSD: 98 QT: 274 QTc: 382 [place]: P: MT: QRS: -31 T: -76 INTERPRETIVE STATEMENTS: Atrial fibrillation with rapid ventricular response Left axis deviation Moderate voltage criteria for LVH, may be normal variant Nonspecific ST and T wave abnormality, probably digitalis effect Abnormal ECG Compared to ECG 02/21/2017 01:19:31 Left-axis deviation now present Sinus rhythm no longer present Atrial premature complex(es) no longer present First degree AV block no longer present ST (T wave) deviation still present Electronically Signed On 04-15-18 08:52:36 CDT by Kd Castro
== END 2018-04-14 21:33 | disposition home or self-care (01) ==
LOC: ER 15:37
DX: I48.2 Chronic atrial fibrillation (principal); R53.1 Weakness; K21.9 Gastro-esophageal reflux disease without esophagitis; C85.90 Non-Hodgkin lymphoma, unspecified, unspecified site; M35.00 Sjogren syndrome, unspecified; Z85.820 Personal history of malignant melanoma of skin; I10 Essential (primary) hypertension; Z88.1 Allergy status to other antibiotic agents
CPT/HCPCS: 36415; 51702; 71045; 80048; 80076; 82550; 82553; 83605 ×2; 83690; 84145; 84484; 85025; 85610; 85730; 87040 ×2; 87070; 87077; 87086; 87088; 87186; 87205; 93005; 96360; 99284; J7030; 81003; 81015

== ENCOUNTER 2018-06-08 14:45 | Inpatient (IN) | payer OTHER ==
--- OUTSIDE RECORDS SUMMARY | 2018-06-08 14:48 | XMS REPORT ---
:1930 Author Organization [facility] Address [address] [place] [address] Care Team Providers Name Role Phone [place] [...] Comments WHITE BLOOD CELL COUNT (BEAKER) (test hlio=234) 5.2 K/ L 4.0-10.0 RED BLOOD CELL COUNT (BEAKER) (test amye=485) 4.14 M/ L 4.20-5.80 HEMOGLOBIN (BEAKER) (test uxts=531) 12.8 GM/DL 13.0-16.8 HEMATOCRIT (BEAKER) (test yzat=224) 37.2 % 40.0-50.0 MEAN CORPUSCULAR VOLUME (BEAKER) (test pdxi=723) 89.9 fL 82.0-98.0 MEAN CORPUSCULAR HEMOGLOBIN (BEAKER) (test yaoz=721) 30.9 pg 27.0-33.0 MEAN CORPUSCULAR HEMOGLOBIN CONC (BEAKER) (test ovnc=521) 34.4 GM/DL 32.0- 36.0 RED CELL DISTRIBUTION WIDTH (BEAKER) (test kkqo=594) 16.4 % 10.3-14.2 PLATELET COUNT (BEAKER) (test geaz=099) 133 K/CU MM 150-430 MEAN PLATELET VOLUME (BEAKER) (test ywms=310) 7.0 fL 6.5-10.5 NUCLEATED RED BLOOD CELLS (BEAKER) (test gmga=523) 0 /100 WBC 0-0 NEUTROPHILS RELATIVE PERCENT (BEAKER) (test pkas=445) 72 % LYMPHOCYTES RELATIVE PERCENT (BEAKER) (test idyw=028) 21 % MONOCYTES RELATIVE PERCENT (BEAKER) (test udsn=399) 5 % EOSINOPHILS RELATIVE PERCENT (BEAKER) (test hjig=144) 1 % BASOPHILS RELATIVE PERCENT (BEAKER) (test fctz=819) 0 % NEUTROPHILS ABSOLUTE COUNT (BEAKER) (test yrik=655) 3.77 K/ L 1.80-8.00 LYMPHOCYTES ABSOLUTE COUNT (BEAKER) (test zrsg=214) 1.11 K/ L 1.48-4.50 MONOCYTES ABSOLUTE COUNT (BEAKER) (test ncov=992) 0.28 K/ L 0.00-1.30 EOSINOPHILS ABSOLUTE COUNT (BEAKER) (test pzqh=210) 0.06 K/ L 0.00-0.50 BASOPHILS ABSOLUTE COUNT (BEAKER) (test yfyk=533) 0.00 K/ L 0.00-0.20 0.00POCT-GLUCOSE [id number] 21:13:00 Test Item Value Reference Range Comments POC-GLUCOSE METER (BEAKER) 116 mg/dL 70-110 TESTED AT [address] (test ctwr=6057) [place] [address] POCT-GLUCOSE [id number] 12:11:00 Test Item Value Reference Range Comments POC-GLUCOSE METER (BEAKER) 120 mg/dL 70-110 TESTED AT [address] (test gmur=6760) [place] [address] POCT-GLUCOSE [id number] 08:22:00 Test Item Value Reference Range Comments POC-GLUCOSE METER (BEAKER) 114 mg/dL 70-110 TESTED AT [address] (test ssug=1424) [place] [address] BASIC METABOLIC [id number] 05:49:00 Test Item Value Reference Range Comments SODIUM (BEAKER) (test 134 meq/L 136-145 mtoy=179) POTASSIUM (BEAKER) (test 3.6 meq/L 3.5-5.1 pdme=117) CHLORIDE (BEAKER) (test 102 meq/L 98-107 zjoa=032) CO2 (BEAKER) (test 23 meq/L 22-29 vuzl=681) BLOOD UREA NITROGEN 24 mg/dL 7-21 (BEAKER) (test sgom=298) CREATININE (BEAKER) (test 1.09 mg/dL 0.57-1.25 oxrk=415) GLUCOSE RANDOM (BEAKER) 95 mg/dL 70-105 (test ojfq=176) CALCIUM (BEAKER) (test 8.2 mg/dL 8.4-10.2 uajd=768) EGFR (BEAKER) (test 64 mL/min/1.73 sq m ESTIMATED GFR IS NOT ovmc=5431) ACCURATE CREATININE CLEARANCE IN PREDICTING GLOMERULAR FILTRATION RATE. ESTIMATED GFR IS NOT APPLICABLE FOR DIALYSIS PATIENTS. Once on admission and Daily AM afterwardsCBC W/PLT COUNT & AUTO [id number] 05:30:00 Test Item Value Reference Range Comments WHITE BLOOD CELL COUNT (BEAKER) (test csua=482) 5.0 K/ L 4.0-10.0 RED BLOOD CELL COUNT (BEAKER) (test wbio=799) 3.96 M/ L 4.20-5.80 HEMOGLOBIN (BEAKER) (test lwwk=269) 12.2 GM/DL 13.0-16.8 HEMATOCRIT (BEAKER) (test voer=597) 35.6 % 40.0-50.0 MEAN CORPUSCULAR VOLUME (BEAKER) (test efwr=089) 90.1 fL 82.0-98.0 MEAN CORPUSCULAR HEMOGLOBIN (BEAKER) (test 30.8 pg 27.0-33.0 nacl=940) MEAN CORPUSCULAR HEMOGLOBIN CONC (BEAKER) (test 34.2 GM/DL 32.0-36.0 cact=724) RED CELL DISTRIBUTION WIDTH (BEAKER) (test 16.3 % 10.3-14.2 mwvy=490) PLATELET COUNT (BEAKER) (test qnau=351) 136 K/CU MM 150-430 MEAN PLATELET VOLUME (BEAKER) (test wwfj=531) 7.2 fL 6.5-10.5 NUCLEATED RED BLOOD CELLS (BEAKER) (test 0 /100 WBC 0-0 pidc=627) NEUTROPHILS RELATIVE PERCENT (BEAKER) (test 61 % sybr=964) LYMPHOCYTES RELATIVE PERCENT (BEAKER) (test 21 % miab=400) MONOCYTES RELATIVE PERCENT (BEAKER) (test 17 % emeo=152) EOSINOPHILS RELATIVE PERCENT (BEAKER) (test 1 % brvt=127) BASOPHILS RELATIVE PERCENT (BEAKER) (test 0 % cpen=798) NEUTROPHILS ABSOLUTE COUNT (BEAKER) (test 3.02 K/ L 1.80-8.00 soza=579) LYMPHOCYTES ABSOLUTE COUNT (BEAKER) (test 1.06 K/ L 1.48-4.50 jvtz=952) MONOCYTES ABSOLUTE COUNT (BEAKER) (test 0.84 K/ L 0.00-1.30 amuj=717) EOSINOPHILS ABSOLUTE COUNT (BEAKER) (test 0.04 K/ L 0.00-0.50 bvxw=758) BASOPHILS ABSOLUTE COUNT (BEAKER) (test 0.01 K/ L 0.00-0.20 qwbe=745) 0.00POCT-GLUCOSE [id number] 22:59:00 Test Item Value Reference Range Comments POC-GLUCOSE METER (BEAKER) 103 mg/dL 70-110 TESTED AT [address] (test eavp=4859) [place] [address] POCT-GLUCOSE [id number] 17:41:00 Test Item Value Reference Range Comments POC-GLUCOSE METER (BEAKER) 126 mg/dL 70-110 TESTED AT [address] (test otyt=4300) [place] [address] POCT-GLUCOSE [id number] 13:19:00 Test Item Value Reference Range Comments POC-GLUCOSE METER (BEAKER) 112 mg/dL 70-110 TESTED AT [address] (test nlaw=9188) [place] [address] HEMOGLOBIN [id number] 08:58:00 Test Item Value Reference Range Comments HEMOGLOBIN A1C (BEAKER) (test mcpt=061) 5.4 % 4.3-6.1 POCT-GLUCOSE [id number] 07:53:00 Test Item Value Reference Range Comments POC-GLUCOSE METER (BEAKER) 103 mg/dL 70-110 TESTED AT [address] (test scfy=2044) [place] [address] [id number] 04:13:00 Test Item Value Reference Range Comments PHOSPHORUS (BEAKER) (test zhfi=292) 2.2 mg/dL 2.3-4.7 Once on admission and Daily AM afterwardsOnce on admission and Daily AM afterwardsOnce on admission and Daily AM [id number] 04:13:00 Test Item Value Reference Range Comments MAGNESIUM (BEAKER) (test zbco=067) 1.8 mg/dL 1.6-2.6 Once on admission and Daily AM afterwardsOnce on admission and Daily AM afterwardsOnce on admission and Daily AM afterwardsBASIC METABOLIC [id number] 04:13:00 Test Item Value Reference Range Comments SODIUM (BEAKER) (test 139 meq/L 136-145 ldls=419) POTASSIUM (BEAKER) (test 3.7 meq/L 3.5-5.1 bkkm=004) CHLORIDE (BEAKER) (test 106 meq/L 98-107 srpk=593) CO2 (BEAKER) (test 26 meq/L 22-29 quez=961) BLOOD UREA NITROGEN 27 mg/dL 7-21 (BEAKER) (test fiif=334) CREATININE (BEAKER) (test 1.17 mg/dL 0.57-1.25 auzl=375) GLUCOSE RANDOM (BEAKER) 95 mg/dL 70-105 (test zhzo=795) CALCIUM (BEAKER) (test 8.2 mg/dL 8.4-10.2 fwpi=635) EGFR (BEAKER) (test 59 mL/min/1.73 sq m ESTIMATED GFR IS NOT qjkx=3235) ACCURATE CREATININE CLEARANCE IN PREDICTING GLOMERULAR FILTRATION RATE. ESTIMATED GFR IS NOT APPLICABLE FOR DIALYSIS PATIENTS. Once on admission and Daily AM afterwardsOnce on admission and Daily AM afterwardsOnce on admission and Daily AM afterwardsCBC W/PLT COUNT & AUTO [id number] 03:57:00 Test Item Value Reference Range Comments WHITE BLOOD CELL COUNT (BEAKER) (test bjqk=072) 6.9 K/ L 4.0-10.0 RED BLOOD CELL COUNT (BEAKER) (test ncln=952) 3.71 M/ L 4.20-5.80 HEMOGLOBIN (BEAKER) (test xvst=894) 11.7 GM/DL 13.0-16.8 HEMATOCRIT (BEAKER) (test lrbg=144) 33.7 % 40.0-50.0 MEAN CORPUSCULAR VOLUME (BEAKER) (test iuli=800) 90.8 fL 82.0-98.0 MEAN CORPUSCULAR HEMOGLOBIN (BEAKER) (test 31.4 pg 27.0-33.0 pwpk=855) MEAN CORPUSCULAR HEMOGLOBIN CONC (BEAKER) (test 34.6 GM/DL 32.0-36.0 egmm=626) RED CELL DISTRIBUTION WIDTH (BEAKER) (test 14.3 % 10.3-14.2 eznb=222) PLATELET COUNT (BEAKER) (test lqyw=654) 122 K/CU MM 150-430 MEAN PLATELET VOLUME (BEAKER) (test aghy=417) 6.6 fL 6.5-10.5 NUCLEATED RED BLOOD CELLS (BEAKER) (test 0 /100 WBC 0-0 pzix=586) NEUTROPHILS RELATIVE PERCENT (BEAKER) (test 63 % ijrf=691) LYMPHOCYTES RELATIVE PERCENT (BEAKER) (test 22 % fmhs=154) MONOCYTES RELATIVE PERCENT (BEAKER) (test 14 % vnkc=030) EOSINOPHILS RELATIVE PERCENT (BEAKER) (test 1 % nonr=172) BASOPHILS RELATIVE PERCENT (BEAKER) (test 0 % wvqt=819) NEUTROPHILS ABSOLUTE COUNT (BEAKER) (test 4.35 K/ L 1.80-8.00 xyqv=587) LYMPHOCYTES ABSOLUTE COUNT (BEAKER) (test 1.53 K/ L 1.48-4.50 tklu=446) MONOCYTES ABSOLUTE COUNT (BEAKER) (test 0.96 K/ L 0.00-1.30 ofcg=504) EOSINOPHILS ABSOLUTE COUNT (BEAKER) (test 0.05 K/ L 0.00-0.50 zond=021) BASOPHILS ABSOLUTE COUNT (BEAKER) (test 0.00 K/ L 0.00-0.20 pwij=534) 0.00POCT-GLUCOSE [id number] 00:35:00 Test Item Value Reference Range Comments POC-GLUCOSE METER (BEAKER) 109 mg/dL 70-110 TESTED AT [address] (test kdyp=1587) [place] [id number] POCT-GLUCOSE [id number] 21:03:00 Test Item Value Reference Range Comments POC-GLUCOSE METER (BEAKER) 149 mg/dL 70-110 TESTED AT [address] (test gkux=5942) [place] [id number] POCT-GLUCOSE [id number] 12:26:00 Test Item Value Reference Range Comments POC-GLUCOSE METER (BEAKER) 153 mg/dL 70-110 TESTED AT [address] (test nshv=4117) [place] [address] [id number] 10:44:00 Test Item Value Reference Range Comments RPR SCREEN (BEAKER) (test wxqe=791) Nonreactive Nonreactive SEDIMENTATION [id number] 09:43:00 Test Item Value Reference Range Comments SEDIMENTATION RATE, ERYTHROCYTE (BEAKER) (test 33 mm/HR 0-40 fouj=980) VITAMIN [id number] 09:34:00 Test Item Value Reference Range Comments VITAMIN B12 (BEAKER) (test xjzc=426) 317 pg/mL 213-816 TSH/FREE T4 IF [id number] 09:34:00 Test Item Value Reference Range Comments THYROID STIMULATING HORMONE (BEAKER) (test 0.69 uIU/mL 0.35-4.94 gkmb=396) TROPONIN [id number] 09:03:00 Test Item Value Reference Range Comments TROPONIN I (BEAKER) (test iphk=112) 0.01 ng/mL 0.00-0.03 Effective 06/24/2014: Reference Range [...] tachyarrhythmia.Once on admission and Daily AM afterwardsLIPID [id number] 08:56:00 Test Item Value Reference Range Comments TRIGLYCERIDES (BEAKER) (test xuyv=970) 46 mg/dL CHOLESTEROL (BEAKER) (test qbve=689) 201 mg/dL HDL CHOLESTEROL (BEAKER) (test djsr=257) 55 mg/dL LDL CHOLESTEROL CALCULATED (BEAKER) (test 137 mg/dL nwsm=131) Triglyceride Reference Range: Low Risk <150 Borderline 150- 199 High Risk 200-499 Very High Risk >=500Cholesterol Reference Range: Low Risk <200 Borderline 200-239 High Risk > 240HDL Cholesterol Reference Range: Low Risk >=60 High Risk <40LDL Cholesterol Reference Range: Optimal <100 Near Optimal 100-129 Borderline 130-159 High 160-189 Very High >=190 Once on admission and Daily AM afterwardsBASIC METABOLIC [id number] 08:56:00 Test Item Value Reference Range Comments SODIUM (BEAKER) (test 137 meq/L 136-145 yhet=788) POTASSIUM (BEAKER) (test 3.8 meq/L 3.5-5.1 mxpc=508) CHLORIDE (BEAKER) (test 101 meq/L 98-107 hcpi=051) CO2 (BEAKER) (test 24 meq/L 22-29 fqcp=258) BLOOD UREA NITROGEN 23 mg/dL 7-21 (BEAKER) (test qudh=011) CREATININE (BEAKER) (test 1.12 mg/dL 0.57-1.25 loyx=400) GLUCOSE RANDOM (BEAKER) 132 mg/dL 70-105 (test cvrn=941) CALCIUM (BEAKER) (test 8.5 mg/dL 8.4-10.2 mgzv=070) EGFR (BEAKER) (test 62 mL/min/1.73 sq m ESTIMATED GFR IS NOT itay=3782) ACCURATE CREATININE CLEARANCE IN PREDICTING GLOMERULAR FILTRATION RATE. ESTIMATED GFR IS NOT APPLICABLE FOR DIALYSIS PATIENTS. Once on admission and Daily AM afterwardsHEPATIC FUNCTION [id number] 08:55: 00 Test Item Value Reference Range Comments TOTAL PROTEIN (BEAKER) (test lguc=398) 6.7 gm/dL 6.0-8.3 ALBUMIN (BEAKER) (test koqm=0950) 3.9 g/dL 3.5-5.0 BILIRUBIN TOTAL (BEAKER) (test ekbh=317) 0.6 mg/dL 0.2-1.2 BILIRUBIN DIRECT (BEAKER) (test brgf=704) 0.2 mg/dL 0.1-0.5 ALKALINE PHOSPHATASE (BEAKER) (test qwkb=965) 71 U/L 40-150 AST (SGOT) (BEAKER) (test sdwn=940) 18 U/L 5-34 ALT (SGPT) (BEAKER) (test oifp=170) 19 U/L 6-55 [id number] 08:38:00 Test Item Value Reference Range Comments PARTIAL THROMBOPLASTIN TIME (BEAKER) (test 29.7 seconds 22.5-36.0 gdis=507) PROTHROMBIN [id number] 08:37:00 Test Item Value Reference Range Comments PROTIME (BEAKER) (test xhtb=565) 15.8 seconds 11.7-14.7 INR (BEAKER) (test darb=838) 1.3 <=5.9 RECOMMENDED COUMADIN/WARFARIN INR THERAPY RANGESSTANDARD DOSE: 2.0 - 3.0 Includes: PROPHYLAXIS forvenous thrombosis, systemic embolization; TREATMENT for venous thrombosis and/or pulmonary embolus.HIGH RISK: Target INR is 2.5-3.5 for patients with mechanical heart valves.CBC W/PLT COUNT & AUTO [id number] 08:35:00 Test Item Value Reference Range Comments WHITE BLOOD CELL COUNT (BEAKER) (test amzw=041) 4.6 K/ L 4.0-10.0 RED BLOOD CELL COUNT (BEAKER) (test qhrx=572) 4.03 M/ L 4.20-5.80 HEMOGLOBIN (BEAKER) (test txnu=757) 12.5 GM/DL 13.0-16.8 HEMATOCRIT (BEAKER) (test tsow=521) 36.4 % 40.0-50.0 MEAN CORPUSCULAR VOLUME (BEAKER) (test fquo=897) 90.4 fL 82.0-98.0 MEAN CORPUSCULAR HEMOGLOBIN (BEAKER) (test 31.1 pg 27.0-33.0 lszf=919) MEAN CORPUSCULAR HEMOGLOBIN CONC (BEAKER) (test 34.5 GM/DL 32.0-36.0 ycub=652) RED CELL DISTRIBUTION WIDTH (BEAKER) (test 14.3 % 10.3-14.2 jpgu=065) PLATELET COUNT (BEAKER) (test xusy=295) 129 K/CU MM 150-430 MEAN PLATELET VOLUME (BEAKER) (test gxnx=780) 6.6 fL 6.5-10.5 NUCLEATED RED BLOOD CELLS (BEAKER) (test 0 /100 WBC 0-0 rgiw=676) NEUTROPHILS RELATIVE PERCENT (BEAKER) (test 83 % kqlk=490) LYMPHOCYTES RELATIVE PERCENT (BEAKER) (test 13 % icem=534) MONOCYTES RELATIVE PERCENT (BEAKER) (test 4 % uiyd=730) EOSINOPHILS RELATIVE PERCENT (BEAKER) (test 0 % eqcu=691) BASOPHILS RELATIVE PERCENT (BEAKER) (test 0 % fmcp=551) NEUTROPHILS ABSOLUTE COUNT (BEAKER) (test 3.79 K/ L 1.80-8.00 oyvk=497) LYMPHOCYTES ABSOLUTE COUNT (BEAKER) (test 0.58 K/ L 1.48-4.50 qxme=841) MONOCYTES ABSOLUTE COUNT (BEAKER) (test 0.16 K/ L 0.00-1.30 pwsu=613) EOSINOPHILS ABSOLUTE COUNT (BEAKER) (test 0.01 K/ L 0.00-0.50 hnhl=727) BASOPHILS ABSOLUTE COUNT (BEAKER) (test 0.01 K/ L 0.00-0.20 zmrr=635) 0.00
--- OUTSIDE RECORDS SUMMARY | 2018-06-08 14:48 | XMS REPORT | Clinical Summary ---
:1930 Author Organization [facility] Address [address] [place] [address] Care Team Providers Name Role Phone Richard Leonard MD Primary Care Provider Allergies Active Allergy Reactions Severity Noted Date Comments Amoxicillin Hives High 02/21/2017 Medications Medication Sig Dispensed Refills Start Date End Date Status dextromethorphan-quinidin Take 1 0 Active e (NUEDEXTA) 20-10 mg Cap capsule by mouth 2 (two) times daily. omeprazole (PRILOSEC) 20 Take 20 mg by 0 Active MG capsule mouth daily. potassium chloride Take 10 mEq 0 Active (KLOR-CON) 10 MEQ CR by mouth tablet daily. hydroCHLOROthiazide Take 25 mg by 0 Active (HYDRODIURIL) 25 MG mouth daily. tablet tamsulosin (FLOMAX) 0.4 Take 0.4 mg 0 Active mg Cp24 24 hr capsule by mouth daily. doxazosin (CARDURA) 2 MG Take 2 mg by 0 Active tablet mouth 2 (two) times daily. gabapentin (NEURONTIN) Take 600 mg 0 Active 300 MG capsule by mouth nightly. donepezil (ARICEPT) 10 MG Take 10 mg by 0 Active tablet mouth nightly. calcium carbonate Take 600 mg 0 Active (OS-AVINASH) 600 mg (1,500 by mouth mg) Tab daily. omega-3 fatty acids-fish Take 2 g by 0 Active oil 340-1,000 mg Cap per mouth 2 (two) capsule times daily. sodium chloride (LELE Place 1 drop 0 Active 128) 2 % ophthalmic into both solution eyes 2 (two) times daily. white petrolatum-mineral Apply 1 drop 0 Active oil (WHITE PETROLATUM) to eye(s) 2 80-20 % Oint (two) times daily. amLODIPine (NORVASC) 10 Take 1 tablet 30 tablet 0 02/24/2017 Active MG tablet (10 mg total) by mouth daily. sodium chloride 0.65% 1 spray by 15 mL 0 02/24/2017 02/24/2018 (OCEAN) 0.65 % nasal Nasal route spray as needed for Congestion. Active Problems Problem Noted Date Atrial fibrillation 02/22/2017 Lymphoma 02/22/2017 Sjogren's disease 02/22/2017 Early onset Alzheimer's dementia 02/22/2017 Hypertension, essential 02/22/2017 BPH (benign prostatic hyperplasia) 02/22/2017 Dysphagia 02/22/2017 Physical deconditioning 02/22/2017 Brain bleed 02/21/2017 Social History Tobacco Use Types Packs/Day Years Used Date Never Smoker Sex Assigned at Date Recorded Not on file Job Start Date Occupation Industry Not on file Not on file Not on file Travel History Travel Start Travel End No recent travel history available. Last Filed Vital Signs Not on file Plan of Treatment Not on file Results Not on fileafter 06/07/2017 Insurance Payer Benefit Plan / Subscriber ID Type Phone Address Group MEDICARE MEDICARE A B xxxxxxxxxx Medicare AETNA - AETNA MEDICARE xxxxxxxxx Maps Contracted [id number] MEDICARE MGD HMO POS 2 [id number] [place] [address] AETNA - [place] AETNA INDEMNITY xxxxxxxxx Comm CARE NON CONTR Advance Directives For more information, please contact:[address] [phone] Code Status Date Activated Date Inactivated Comments Full Code 02/21/2017 7:01 AM 02/24/2017 6:36 PM This code status was determined by: Patient
[2018-06-08] MEDS ORDERED: NA CHLORIDE 0.9% 500 ML ONE (15:10)
[2018-06-08 15:22] LABS: Absolute Monocytes 0.5 K/uL (0.1-1.3); Absolute Neutrophil 2.4 K/uL (1.8-8.0); Basophils % 2.4 % (0-1.3); Eosinophils % 4.8 % (0-4.4); Hematocrit 38.7 % (39.6-49.0); Lymphocytes % 24.5 % (15.3-44.8); MCH 31.4 pg (27.0-35.0); MCV 92.1 fL (80-100); MPV 7.8 fL (7.6-11.3); Monocytes % 10.9 % (3.3-12.3)
--- NOTE | 2018-06-08 15:26 | RAD REPORT ---
EXAM DESCRIPTION: CT - Head Brain Wo Cont - 06/08/2018 3:13 pm CLINICAL HISTORY: Slurred speech COMPARISON: September 2016 TECHNIQUE: Computed axial tomography of the head was obtained. IV contrast was not requested. All CT scans are performed using dose optimization technique as appropriate and may include automated exposure control or mA/KV adjustment according to patient size. FINDINGS: An acute intracranial bleed is not seen . The ventricles are normal in caliber. No extra-axial fluid collection is noted. Right parietal scalp swelling is seen Fluid within the sinuses/ mastoids is not seen. IMPRESSION: No acute intracranial abnormality is seen. If patient's symptoms persist MRI of the bra in would be recommended.
[2018-06-08 15:29] LABS: Protime INR 1.01
[2018-06-08 15:34] LABS: BUN Blood Urea Nitrogen 23 mg/dL (7-18); Bicarbonate 32 mmol/L (21-32); Creatine Phosphokinase 41 U/L (39-308); Glucose Level 144 mg/dL (74-106); Potassium 3.4 mmol/L (3.5-5.1); Sodium Level 143 mmol/L (136-145); Troponin (Emerg Dept Use Only) < 0.02 ng/mL (0.0-0.045)
[2018-06-08 16:49] LABS: Urine Bacteria NONE SEEN /HPF (NONE SEEN); Urine Culture Reflex Order NOT NEEDED; Urine RBC NONE SEEN /HPF (NONE SEEN)
[2018-06-08 16:55] LABS: Urine Blood NEGATIVE (NEG); Urine Glucose NEGATIVE (NEG); Urine Protein NEGATIVE (NEG); Urine Specific Gravity 1.025 (1.005-1.030)
--- NOTE | 2018-06-08 17:33 | ER ---
Nurse's Notes [facility] Name: Isis Schultz Age: 87 yrs Sex: Male : 1930 Arrival Date: 06/08/2018 Time: 14:42 Bed 8 Private MD: Diagnosis: Altered mental status, unspecified;Weakness Presentation: 06/08 14:43 Presenting complaint: EMS states: Slurred speech and left sided weakness upon waking hb today. Last known normal was last night at 10pm. Hx Afib, HTN, CVA, Dementia. AOx2 at baseline. Transition of care: patient was not received from another setting of care. Onset of symptoms was June 08, 2018. Risk Assessment: Do you want to hurt yourself or someone else? Patient reports no desire to harm self or others. Care prior to arrival: Glucose check: 128. 14:43 Method Of Arrival: EMS: [facility] hb 14:43 Acuity: CAROL ANN 3 hb 19:52 Initial Sepsis Screen: Does the patient meet any 2 criteria? No. Patient's initial rr5 sepsis screen is negative. Does the patient have a suspected source of infection? No. Patient's initial sepsis screen is negative. Triage Assessment: 14:45 General: Appears in no apparent distress. obese, Behavior is drowsy. bp Historical: - Allergies: 14:46 Amoxicillin; hb - Home Meds: 14:46 amlodipine 5 mg tab 1 tab once daily [Active]; apixaban Oral 1 tab 2 times per day hb [Active]; Caltrate 600 + D 600 mg (1,500 mg)-800 unit Oral chew daily [Active]; donepezil 10 mg Oral tab once daily [Active]; doxazosin 2 mg Oral tab 0.5 tab twice a day [Active]; Fish Oil 360-1,200 mg Oral cap twice a day [Active]; furosemide 40 mg Oral tab 1 tab once daily as needed [Active]; gabapentin 300 mg Oral cap 2 caps [Active]; hydralazine 50 mg Oral tab daily [Active]; hydrochlorothiazide 25 mg Oral tab 1 tab once daily for Hypertension [Active]; immodium twice a day [Active]; potassium chloride 10 mEq Oral TbER 1 cap once daily [Active]; Messi 128 2 % Opht drop twice a day [Active]; PreserVision AREDS Oral twice a day [Active]; soothe eye drops twice a day [Active]; tamsulosin 0.4 mg Oral cp24 1 cap once daily [Active]; tramadol-acetaminophen 37.5-325 mg Oral tab 1 tabs three times a day as needed for pain [Active]; - PMHx: 14:46 Atrial Fib; GERD; Hypertension; Kidney stones; LYMPHOMA; melanoma; sjoger syndrome; hb - Immunization history:: Adult Immunizations up to date. - Social history:: Smoking status: Patient/guardian denies using tobacco. - Ebola Screening: : No symptoms or risks identified at this time. - Family history:: not pertinent. - Hospitalizations: : No recent hospitalization is reported. Screenin:30 Abuse screen: Denies threats or abuse. Denies injuries from another. Nutritional bp screening: No deficits noted. Tuberculosis screening: No symptoms or risk factors identified. Fall Risk No fall in past 12 months (0 pts). Secondary diagnosis (15 points) dementia, IV access (20 points). Ambulatory Aid- None/Bed Rest/Nurse Assist (0 pts). Gait- Normal/Bed Rest/Wheelchair (0 pts) Mental Status- Overestimates/Forgets Limitations (15 pts.). Total Curtis Fall Scale indicates High Risk Score (45 or more points). Fall prevention measures have been instituted. Side Rails Up X 2 Placed Close to Nursing Station Frequent Obs/Assessments Occuring Family Present and informed to notify staff if the need to leave the bedside As available patient and family educated on Fall Prevention Program and Strategies. Assessment: 15:00 General: Appears in no apparent distress. uncomfortable, Behavior is calm, drowsy, bp flat. Pain: Unable to use pain scale. Patient is disoriented. Does not appear to understand pain scale. Neuro: Level of Consciousness is obeys commands, confused, lethargic, Oriented to person. Cardiovascular: Rhythm is sinus rhythm. Respiratory: Airway is patent Respiratory effort is even, unlabored, Respiratory pattern is regular, symmetrical. GI: No signs and/or symptoms were reported involving the gastrointestinal system. Abdomen is non-distended, Abd is soft X 4 quads. : No signs and/or symptoms were reported regarding the genitourinary system. EENT: No deficits noted. Derm: Skin has lesions on NECROTIC SCALP LESIONS. Musculoskeletal: Circulation, motion, and sensation intact. Range of motion: limited in left hip, left knee, left ankle, right hip, right knee and right ankle. 15:30 Reassessment: ALL CURRENT ORDERS COMPLETED, RESULTS PENDING. bp 17:09 Reassessment: ALL CURRENT ORDERS IN PROCESS, RESULTS PENDING. bp 18:00 Reassessment: PT UNABLE TO TOLERATE MRI, SCREAMING AT AND THREATENING TO HIT STAFF 2/2 bp "PUT THE PILLOW BACK". 19:15 General: Appears in no apparent distress. comfortable, Behavior is calm, drowsy. rr5 19:15 Neuro: Level of Consciousness is confused, lethargic, Oriented to person. rr5 Cardiovascular: Capillary refill < 3 seconds Rhythm is sinus rhythm. Respiratory: Airway is patent Respiratory effort is even, unlabored, Respiratory pattern is regular, symmetrical. GI: No signs and/or symptoms were reported involving the gastrointestinal system. Abdomen is non-distended, Abd is soft. : No signs and/or symptoms were reported regarding the genitourinary system. EENT: No deficits noted. Derm: Skin has lesions on back of the head crusty, dry skin lesion( history of head cancer). Musculoskeletal: Circulation, motion, and sensation intact. Range of motion: limited in lower extremities. Vital Signs: 14:46 BP 117 / 86; Pulse 105; Resp 15; Temp 98.1; Pulse Ox 100% on R/A; Weight 81.65 kg; bp 15:15 BP 133 / 70; Pulse 97; Resp 12; Pulse Ox 92% on R/A; bp 15:30 BP 130 / 74; Pulse 90; Resp 14; Pulse Ox 99% ; bp 16:30 BP 145 / 66; Pulse 97; Resp 16; Pulse Ox 99% ; bp 17:00 BP 136 / 68; Pulse 93; Resp 14; Pulse Ox 99% ; bp 19:15 BP 125 / 64; Pulse 94; Resp 17; Temp 98(O); Pulse Ox 99% on R/A; rr5 ED Course: 14:42 Patient arrived in ED. ph 14:45 Triage completed. hb 14:46 Carlos Levy MD is Attending Physician. rn 14:46 Arm band placed on. hb 15:00 Patient has correct armband on for positive identification. Placed in gown. Bed in low bp position. Call light in reach. Side rails up X2. Adult w/ patient. 15:00 Inserted saline lock: 20 gauge in right forearm, using aseptic technique. Blood bp collected. 15:01 Bob Ding, RN is Primary Nurse. bp 15:01 EKG done, by lot technician. reviewed by Carlos Levy MD. 3 15:13 CT Head Brain wo Cont In Process Unspecified. EDMS 15:56 Urine collected: straight cath specimen, clear, randy colored. Straight cath inserted, jb1 using sterile technique, 14 Fr. Specimen obtained. 17:32 Jordan Dominique DO is Hospitalizing Provider. rn 19:17 X-ray completed. Portable x-ray completed in exam room. Patient tolerated procedure ka poorly. 19:49 No provider procedures requiring assistance completed. Inserted Patient admitted, IV rr5 remains in place. intact. Administered Medications: 15:15 Drug: NS 0.9% 500 ml Route: IV; Rate: bolus; Site: right forearm; bp 19:54 Follow up: IV Status: Completed infusion; IV Intake: 500ml rr5 18:16 Drug: Ativan 0.5 mg Route: IVP; Site: right forearm; bp 19:53 Follow up: Response: No adverse reaction rr5 Intake: 19:54 IV: 500ml; Total: 500ml. rr5 Outcome: 17:32 Decision to Hospitalize by Provider. rn 19:51 Admitted to Tele accompanied by tex, via stretcher, Report called to Fer [email or web address] 19:51 Condition: stable 19:51 Instructed on the need for admit. 20:03 Patient left the ED. rr5 Signatures: Dispatcher [employer] EDMS Yunier Henao jb1 Carlos Levy MD MD rn Hall, Patricia, RN RN ph Aguilera, Katelyn ka Baxter, Heather, RN RN hb Peltier, Brian RN Kait Valenzuela 3 Matt Cosby, RN RN rr5 Corrections: (The following items were deleted from the chart) 15:56 15:38 Straight cath inserted, using sterile technique, 16 Fr. Specimen obtained. jb1 Returned randy urine. Patient tolerated well. bp 18:19 14:46 BP 117 / 86; Pulse 105bpm; Resp 15bpm; Pulse Ox 100% RA; hb bp
--- NOTE | 2018-06-08 17:33 | EDPHYS ---
Physician Documentation [facility] Name: Isis Schultz Age: 87 yrs Sex: Male : 1930 Arrival Date: 06/08/2018 Time: 14:42 Bed 8 Private MD: ED Physician Carlos Levy HPI: 06/08 15:28 This 87 yrs old Male presents to ER via EMS with complaints of AMS, weakness. rn 15:28 The patient presents with decreased responsiveness. Onset: The symptoms/episode rn began/occurred at an unknown time. Current symptoms: In the emergency department the patient's symptoms are unchanged from the initial presentation. The patient has experienced similar episodes in the past. Per EMS report, patient last seen normal last night around 10PM, today saw patient and called 911 for evaluation of left sided weakness and decreased responsiveness, has baseline right sided weakness from previous stroke, per assisted living, is not at baseline strength and only slightly decreased responsiveness. . Historical: - Allergies: 14:46 Amoxicillin; hb - Home Meds: 14:46 amlodipine 5 mg tab 1 tab once daily [Active]; apixaban Oral 1 tab 2 times per day hb [Active]; Caltrate 600 + D 600 mg (1,500 mg)-800 unit Oral chew daily [Active]; donepezil 10 mg Oral tab once daily [Active]; doxazosin 2 mg Oral tab 0.5 tab twice a day [Active]; Fish Oil 360-1,200 mg Oral cap twice a day [Active]; furosemide 40 mg Oral tab 1 tab once daily as needed [Active]; gabapentin 300 mg Oral cap 2 caps [Active]; hydralazine 50 mg Oral tab daily [Active]; hydrochlorothiazide 25 mg Oral tab 1 tab once daily for Hypertension [Active]; immodium twice a day [Active]; potassium chloride 10 mEq Oral TbER 1 cap once daily [Active]; Messi 128 2 % Opht drop twice a day [Active]; PreserVision AREDS Oral twice a day [Active]; soothe eye drops twice a day [Active]; tamsulosin 0.4 mg Oral cp24 1 cap once daily [Active]; tramadol-acetaminophen 37.5-325 mg Oral tab 1 tabs three times a day as needed for pain [Active]; - PMHx: 14:46 Atrial Fib; GERD; Hypertension; Kidney stones; LYMPHOMA; melanoma; sjoger syndrome; hb - Immunization history:: Adult Immunizations up to date. - Social history:: Smoking status: Patient/guardian denies using tobacco. - Ebola Screening: : No symptoms or risks identified at this time. - Family history:: not pertinent. - Hospitalizations: : No recent hospitalization is reported. ROS: 15:28 Constitutional: Negative for fever, chills, and weight loss, Eyes: Negative for injury, rn pain, redness, and discharge, Neck: Negative for injury, pain, and swelling, Cardiovascular: Negative for chest pain, palpitations, and edema, Respiratory: Negative for shortness of breath, cough, wheezing, and pleuritic chest pain, Abdomen/GI: Negative for abdominal pain, nausea, vomiting, diarrhea, and constipation, MS/Extremity: Negative for injury and deformity, Skin: Negative for injury, rash, and discoloration, Neuro: + weakness Exam: 15:28 Constitutional: Elderly male, appears somnolent, follows commands, slow to respond rn Head/Face: Normocephalic, atraumatic. Eyes: Periorbital areas with no swelling, redness, or edema. ENT: dry MM Cardiovascular: Regular rate and rhythm with a normal S1 and S2. No gallops, murmurs, or rubs. Normal PMI, no JVD. No pulse deficits. Respiratory: Lungs have equal breath sounds bilaterally, clear to auscultation. No increased work of breathing, no retractions or nasal flaring. Abdomen/GI: soft, non-tender MS/ Extremity: Pulses equal, no cyanosis. + bilateral lower ext swelling Neuro: Awake, somnolent, mild slurred speech, + right sided hemiparesis without motion against gravity, 3/5 strength LLE, 4/5 strength LUE. Vital Signs: 14:46 BP 117 / 86; Pulse 105; Resp 15; Temp 98.1; Pulse Ox 100% on R/A; Weight 81.65 kg; bp 15:15 BP 133 / 70; Pulse 97; Resp 12; Pulse Ox 92% on R/A; bp 15:30 BP 130 / 74; Pulse 90; Resp 14; Pulse Ox 99% ; bp 16:30 BP 145 / 66; Pulse 97; Resp 16; Pulse Ox 99% ; bp 17:00 BP 136 / 68; Pulse 93; Resp 14; Pulse Ox 99% ; bp 19:15 BP 125 / 64; Pulse 94; Resp 17; Temp 98(O); Pulse Ox 99% on R/A; rr5 MDM: 14:46 Patient medically screened. rn 17:21 Differential Diagnosis: electrolyte abnormality, hypoglycemia, intracranial bleed, rn sepsis, TIA, UTI, volume depletion. Data reviewed: vital signs, nurses notes, lab test result(s), radiologic studies, CT scan, and as a result, I will admit patient. Counseling: I had a detailed discussion with the patient and/or guardian regarding: the historical points, exam findings, and any diagnostic results supporting the discharge/admit diagnosis, lab results, radiology results, the need for further work-up and treatment in the hospital. Admission orders: after a detailed discussion of the patient's condition and case, the admit orders are written by me. 17:26 Special discussion:. ED course: Admitted to Dr. Dominique, ordered MRI stroke protocol to rn be done now. Negative ct head for acute findings, normal UA. . 06/08 14:49 Order name: Basic Metabolic Panel; Complete Time: 15:49 rn 06/08 14:49 Order name: CBC with Diff; Complete Time: 15:26 rn 06/08 14:49 Order name: CPK; Complete Time: 15:49 rn 06/08 14:49 Order name: Protime (+inr); Complete Time: 15:49 rn 06/08 14:49 Order name: Ptt, Activated; Complete Time: 15:49 rn 06/08 14:49 Order name: Troponin (emerg Dept Use Only); Complete Time: 15:49 rn 06/08 14:49 Order name: Blood Culture Adult (2) rn 06/08 14:49 Order name: Procalcitonin; Complete Time: 16:33 rn 06/08 14:49 Order name: Lactate; Complete Time: 16:33 rn 06/08 15:26 Order name: Urine Microscopic Only; Complete Time: 16:51 bp 06/08 15:26 Order name: Urine Culture bp 06/08 16:07 Order name: Urine Dipstick--Ancillary (enter results); Complete Time: 17:21 eb 06/08 17:45 Order name: T4,Total EDMS 06/08 17:45 Order name: Thyroid Stimulating Hormone EDMS 06/08 14:49 Order name: EKG; Complete Time: 14:57 rn 06/08 14:49 Order name: CT Head Brain wo Cont; Complete Time: 15:26 rn 06/08 17:08 Order name: MRI Stroke Protocol 06/08 17:35 Order name: Chest Single View XRAY hb 06/08 17:45 Order name: CONS Physician Consult [facility] 06/08 17:45 Order name: Physical Therapy Consult [facility] 06/08 17:45 Order name: Echo with Doppler EDAL 06/08 17:45 Order name: CKMB Creatine Kinase MB EDAL 06/08 17:45 Order name: Creatine Phosphokinase [facility] 06/08 17:45 Order name: Troponin I [facility] 06/08 17:45 Order name: Blood Culture [facility] 06/08 17:47 Order name: Chest Pa And Lat (2 Views) EDAL 06/08 17:48 Order name: Carotid Artery Bilateral [facility] 06/08 19:26 Order name: RAD [facility] 06/08 14:49 Order name: Cardiac monitoring; Complete Time: 15:13 rn 06/08 14:49 Order name: EKG - Nurse/Tech; Complete Time: 15:13 rn 06/08 14:49 Order name: IV Saline Lock; Complete Time: 15:14 rn 06/08 14:49 Order name: Labs collected and sent; Complete Time: 15:14 rn 06/08 14:49 Order name: NPO; Complete Time: 15:14 rn 06/08 14:49 Order name: O2 Per Protocol; Complete Time: 15:14 rn 06/08 14:49 Order name: O2 Sat Monitoring; Complete Time: 15:14 rn 06/08 14:49 Order name: Urine Dipstick-Ancillary (obtain specimen); Complete Time: 15:56 rn 06/08 14:50 Order name: Glucose Level; Complete Time: 16:03 rn 06/08 15:26 Order name: Straight Cath; Complete Time: 15:38 bp 06/08 17:45 Order name: NPO [facility] 06/08 17:47 Order name: Speech Therapy Consult [facility] Administered Medications: 15:15 Drug: NS 0.9% 500 ml Route: IV; Rate: bolus; Site: right forearm; bp 19:54 Follow up: IV Status: Completed infusion; IV Intake: 500ml rr5 18:16 Drug: Ativan 0.5 mg Route: IVP; Site: right forearm; bp 19:53 Follow up: Response: No adverse reaction rr5 Disposition: 06/08/18 17:32 Hospitalization ordered by Jordan Dominique for Inpatient Admission. Preliminary diagnosis are Altered mental status, unspecified, Weakness. - Bed requested for Telemetry/MedSurg (Inpatient). - Status is Inpatient Admission. rr5 - Condition is Stable. - Problem is new. - Symptoms are unchanged. UTI on Admission? No Signatures: Dispatcher [employer] EDAL Fatemeh Ott, RN RN bb Carlos Levy MD MD rn Baxter, Heather, RN RN Bob Ding RN RN bp Matt Cosby RN RN rr5 Corrections: (The following items were deleted from the chart) 17:52 17:45 EKG Electrocardiogram ordered. [facility] 19:22 17:32 Hospitalization Ordered by Jordan Dominique DO for Inpatient Admission. Preliminary bb diagnosis is Altered mental status, unspecified; Weakness. Bed requested for Telemetry/MedSurg (Inpatient). Status is Inpatient Admission. Condition is Stable. Problem is new. Symptoms are unchanged. UTI on Admission? No. rn 20:03 19:22 06/08/2018 17:32 Hospitalization Ordered by Jordan Dominique DO for Inpatient rr5 Admission. Preliminary diagnosis is Altered mental status, unspecified; Weakness. Bed requested for Telemetry/MedSurg (Inpatient). Status is Inpatient Admission. Condition is Stable. Problem is new. Symptoms are unchanged. UTI on Admission? No. bb
[2018-06-08] MEDS ORDERED: ACETAMINOPHEN 500 MG TAB PO PRN (17:34)
[2018-06-08] MEDS ORDERED: SODIUM CHLORIDE 0.9% 10ML INJ IV PRN (17:34)
[2018-06-08] MEDS ORDERED: ONDANSETRON 4 MG/2 ML VIAL IV PRN (17:34)
[2018-06-08] MEDS: Levofloxacin500mg IV 500 MG/100 ML BAG IV SCH (18:00)
[2018-06-08] MEDS ORDERED: LORazepam 2 MG/ML VIAL ONE (18:08)
[2018-06-08 18:12] LABS: T4,Total 8.7 ug/dL (4.5-12.1); Thyroid Stimulating Hormone 0.629 uIU/mL (0.360-3.740)
--- NOTE | 2018-06-08 18:20 | P.HP ---
Certification for Inpatient Patient admitted to: Inpatient With expected LOS: >2 Midnights Patient will require the following post-hospital care: Other (Back to assisted living) Practitioner: I am a practitioner with admitting privileges, knowledge of patient current condition, hospital course, and medical plan of care. Services: Services provided to patient in accordance with Admission requirements found in Title 42 Section 412.3 of the Code of Federal Regulations Patient History Date of Service: 06/08/18 Primary Care Provider: Dr. Cummings Reason for admission: Altered mental status History of Present Illness: 87-year-old male presented emergency room with altered mental status. Patient is a resident at an assisted living facility. He has been there for the past year. Patient with history of dementia, hypertension, hyperlipidemia, previous CVA with right-sided residual weakness, atrial fibrillation on chronic anti coalition therapy and BPH. Most information came from the son and ER physician. Patient has been with increased fatigue over the last day. He is sleeping more. This is not his normal baseline. Unknown if patient has had fever or chills. Patient takes multiple medications. In the ER patient evaluated. Patient with atrial fibrillation rate controlled, hemoglobin 13.2, white count 4.2, BUN of 23, creatinine 1.3, GFR 52. Glucose 144. Sodium 143, potassium 3.4, urinalysis unremarkable. Lactic acid 2.8, pro calcitonin negative. Troponin within normal range. head CT shows no acute stroke. Patient admitted for further evaluation. When I saw the patient ER, he responded to pain and voice. Increased fatigue noted. Patient does not appear in any respiratory distress Allergies amoxicillin [Amoxicillin] Allergy (Severe, Verified 04/07/16 11:17) Hives/Rash Home medications list reviewed: Yes Home Medications: Amlodipine [Norvasc*] 5 mg PO BEDTIME 01/03/14 Furosemide [Lasix*] 40 mg PO DAILY PRN 01/03/14 Omeprazole 20 mg PO BEDTIME 01/03/14 Potassium Chloride [Klor-Con 10] 10 meq PO DAILY 01/03/14 Tamsulosin [Flomax*] 0.4 mg PO BEDTIME 01/03/14 hydroCHLOROthiazide [Hydrochlorothiazide*] 25 mg PO DAILY 01/03/14 Calcium Carbonate/Vitamin D3 [Caltrate 600 Plus D3 Tablet] 1 mg PO DAILY Fish Oil/Dha/Epa [Fish Oil 1,200 mg Fish Oil] 2 tab PO BID 04/02/16 Tramadol HCl/Acetaminophen [Tramadol-Acetaminophn 37.5-325] 1 tab PO TID PRN Donepezil [Aricept*] 10 mg PO BEDTIME 04/07/16 Doxazosin Mesylate [Cardura] 1 mg PO BEDTIME 04/07/16 Mineral Oil, Light/Mineral Oil [Soothe Xp Eye Drops] 15 ml EACH EYE BID Sodium Chloride [Messi-128] 30 ml EACH EYE BID 04/07/16 Vit A/Vit C/Vit E/Zinc/Copper [Preservision Areds Softgel] 1 each PO BID Gabapentin [Gralise] 600 mg PO BEDTIME 09/27/16 Apixaban [Eliquis] 5 mg PO BID #60 tablet 09/30/16 - Past Medical/Surgical History Diabetic: No -: HTN -: History of lymphoma -: Atrial fibrillation on chronic anti coagulation therapy -: BPH -: Dementia -: History of skin cancer -: Hyperlipidemia -: History CVA, right-sided residual weakness -: Patient bed-bound -: Cataract Sx-bilateral eyes -: Kidney Stones laser surgery -: Cholecystectomy Psychosocial/ Personal History: Patient currently in assisted living facility over the last year. Patient is . Patient has 3 kids. - Family History Father -: Heart disease Notes: father of heart attack Mother -: Cancer Notes: mother had skin cancer Sister -: Kidney disease Notes: sister has renal disease and dementia Brother Notes: brother has bilateral lower extremity neuropathy - Social History Smoking Status: Never smoker Alcohol use: No CD- Drugs: No Caffeine use: Yes Place of Residence: [facility] Review of Systems is unable to be obtained Physical Examination - Physical Exam General: Alert, In no apparent distress, Oriented x1, Other (Increased fatigue and sedation. Patient responds to voice and stimulation.) HEENT: Atraumatic, Normocephalic, Other (Dry mucous membranes) Neck: Supple Respiratory: Clear to auscultation bilaterally, Normal air movement Cardiovascular: Irregular heart rate/rhythm (Atrial fibrillation, rate controlled) Gastrointestinal: Normal bowel sounds, Soft and benign, Non-distended, No tenderness, No masses, No rebound, No guarding Musculoskeletal: No erythema, No tenderness, No warmth Integumentary: Tenderness/swelling (1+ pain pitting edema to the lower extremities bilateral) Neurological: Normal speech, Abnormal strength (Decreased strength bilateral. Patient with history of right-sided residual weakness from prior stroke), Dementia - Studies Laboratory Data (last 24 hrs) 06/08/18 15:00: PT 11.9, INR 1.01, APTT 28.7 06/08/18 15:00: WBC 4.2 L, Hgb 13.2 L, Hct 38.7 L, Plt Count 167 06/08/18 15:00: Sodium 143, Potassium 3.4 L, BUN 23 H, Creatinine 1.30, Glucose 144 H Assessment and Plan - Plan Impression: Altered mental status possible metabolic encephalopathy complicated with history of CVA with right-sided residual weakness now with bilateral weakness and increase sedation, possible infectious process Dementia, mild Atrial fibrillation on chronic anti coagulation therapy Hypertension BPH Renal sufficiency likely mild dehydration Patient bed-bound Plan: Altered mental status possible metabolic encephalopathy complicated with history of CVA with right-sided residual weakness now with bilateral weakness and increase sedation, possible infectious process: Will check chest x-ray for possible pneumonia. Patient will be admitted for further evaluation. Will start Levaquin IV. Will obtain blood cultures. Urinalysis unremarkable. Will send for MRI stroke protocol to evaluate for possible stroke. Will check echocardiogram and carotid Doppler. Will continue with Eliquis. Will continue with fall and aspiration precaution. Will consult cardiology for further recommendation. Await MRI to determine if neurology consultation is required. Case discussed at length with son. Patient appears to have [id number] DNR. Will confirm with . Will have nurse address advance directives. Dementia, mild: Will continue with medication Atrial fibrillation on chronic anti coagulation therapy: Will provide medication for rate control. Will continue with anti coagulation therapy- Eliquis. Will check echocardiogram. Hypertension: Will provide medication. BPH: Will provide medication. Will verify home medication. Renal sufficiency likely mild dehydration: Will continue with low-dose IV fluids. Patient bed-bound: Continue to monitor. Patient will likely return to assisted living facility at discharge Discharge Plan: Other (Assisted living facility) Plan to discharge in: Greater than 2 days - Advance Directives Does patient have a Living Will: Yes Does patient have a Durable POA for Healthcare: Yes - Code Status/Comfort Care Code Status Assessed: Yes (Will need to verify code status. Patient has out-of- hospital DNR ) Time Spent Managing Pts Care (In Minutes): 55
--- NOTE | 2018-06-08 19:26 | RAD REPORT ---
EXAM DESCRIPTION: Lesly Single View06/08/2018 7:19 pm CLINICAL HISTORY: Chest pain COMPARISON: April 2018 FINDINGS: The lungs appear clear of acute infiltrate. The heart is mildly enlarged IMPRESSION: No acute abnormalities displayed
[2018-06-08] MEDS: DOXAZOSIN 2 MG TAB PO SCH (21:00)
[2018-06-08] MEDS ORDERED: APIXABAN 2.5 MG TABLET PO SCH (21:00)
[2018-06-08] MEDS: ATORVASTATIN 40 MG TAB PO SCH (21:00)
[2018-06-08] MEDS: DONEPEZIL HCL 5 MG TAB PO SCH (21:00)
[2018-06-08] MEDS: NA CHLORIDE 0.9% 1,000 ML IV SCH (21:35)
[2018-06-08 22:07] LABS: Creatine Phosphokinase 43 U/L (39-308); Troponin I < 0.02 ng/mL (0.0-0.045)
[2018-06-08] MEDS ORDERED: ENOXAPARIN 100 MG/ML SYR SQ SCH (23:00)
[2018-06-09 00:49] VITALS: BMI 28.4
[2018-06-09 05:04] LABS: Absolute Lymphocytes (CBC) 1.1 K/uL (0.7-4.9); Absolute Monocytes 0.6 K/uL (0.1-1.3); Absolute Neutrophil 3.2 K/uL (1.8-8.0); Basophils % 1.1 % (0-1.3); Eosinophils % 4.7 % (0-4.4); Lymphocytes % 20.5 % (15.3-44.8); MCV 91.9 fL (80-100); MPV 7.5 fL (7.6-11.3); Monocytes % 12.2 % (3.3-12.3)
[2018-06-09 05:19] LABS: CKMB Creatine Kinase MB 1.1 ng/mL (0.3-3.6); Magnesium 2.1 mg/dL (1.8-2.4); Potassium 4.1 mmol/L (3.5-5.1); Troponin I 0.02 ng/mL (0.0-0.045)
[2018-06-09] MEDS ORDERED: FUROSEMIDE 40 MG TABLET PO PRN (07:23)
--- NOTE | 2018-06-09 08:28 | EKG ---
Test Date: 2018-06-08 Test Time: 14:59:53 Finishing Trimmer: JOHNNY MEASUREMENT RESULTS: Intervals: Rate: 105 SD: QRSD: 98 QT: 338 QTc: 446 [place]: P: SD: QRS: -34 T: 163 INTERPRETIVE STATEMENTS: Atrial fibrillation with rapid ventricular response with aberrantly conducted or ventricular premature complexes Left axis deviation Abnormal ECG Compared to ECG 04/14/2018 15:55:12 no significant change from previous ECG Electronically Signed On 06-09-18 08:28:01 CDT by Reynold Macedo
--- NOTE | 2018-06-09 08:54 | RAD REPORT ---
EXAM DESCRIPTION: USCarotid Artery Rnkbjakel49/2/2018 10:03 pm CLINICAL HISTORY: cva FINDINGS: The velocity of the right internal carotid artery equals 76 cm/sec. The right ICA/CCA rati o 1.5 The velocity of the left internal carotid artery equals 67cm/sec. The left ICA/CCA ratio 0.9 Moderate plaque is present within the carotid arteries. The vertebral arteries demonstrate antegrade flow IMPRESSION: Moderate plaque within the right carotid bulb without evidence of a hemodynamically sign ificant stenosis . Moderate plaque within the left carotid bulb without evidence of a hemodynamically significant stenos is The degree of carotid stenosis determine using NASCET criteria. Moderate 50- 69% stenosis. Severe 70- 94% stenosis
[2018-06-09] MEDS: HOME MED 1 EA UNK (Cranberry [Cranberry] 1,000 MG) PO SCH ×2 (09:00→14:00)
[2018-06-09] MEDS: TAMSULOSIN 0.4 MG SR CAP PO SCH (09:32)
[2018-06-09] MEDS: MEMANTINE HCL 10 MG TABLET PO SCH ×2 (09:32→20:06)
[2018-06-09] MEDS: PANTOPRAZOLE 40 MG INJ IVP SCH (09:32)
[2018-06-09] MEDS: ASPIRIN 81 MG CHEWABLE TABLET PO SCH (09:35)
[2018-06-09] MEDS: CLOPIDOGREL 75 MG TABLET PO SCH (09:35)
--- NOTE | 2018-06-09 09:54 | P.PN ---
Subjective Date of Service: 06/09/18 Primary Care Provider: Dr. Cummings Chief Complaint: Altered mental status Subjective: Other (Patient doing better. More alert today. at bedside. Patient was not able to do MRI yesterday) Physical Examination - Vital Signs Temperature: 97.4 F Blood Pressure: 122/65 Pulse: 99 Respirations: 18 Pulse Ox (%): 95 - Physical Exam General: Alert, In no apparent distress, Oriented x3, Cooperative HEENT: Atraumatic Neck: Supple Respiratory: Clear to auscultation bilaterally, Normal air movement Cardiovascular: Normal pulses, Regular rate/rhythm Gastrointestinal: Normal bowel sounds, Soft and benign, Non-distended, No masses , No rebound, No guarding Musculoskeletal: No erythema, No tenderness, No warmth Integumentary: No warmth, No cyanosis Neurological: Abnormal strength (Better movement bilateral. Patient with left- sided residual weakness from prior stroke) - Studies Laboratory Data (last 24 hrs) 06/08/18 15:00: PT 11.9, INR 1.01, APTT 28.7 06/08/18 15:00: WBC 4.2 L, Hgb 13.2 L, Hct 38.7 L, Plt Count 167 06/08/18 15:00: Sodium 143, Potassium 3.4 L, BUN 23 H, Creatinine 1.30, Glucose 144 H Medications List Reviewed: Yes Assessment & Plan Discharge Plan: Other (Assisted living facility) Plan to discharge in: 48 Hours - Code Status/Comfort Care Code Status Assessed: Yes (Patient is DNR) Physician Review Additional Text: Impression: Altered mental status possible metabolic encephalopathy complicated with history of CVA with right-sided residual weakness now with bilateral weakness and increased sedation, possible infectious process versus TIA Dementia, mild Atrial fibrillation not on chronic anti coagulation therapy Hypertension Hyperlipidemia BPH Renal sufficiency likely mild dehydration Patient bed-bound Plan: Altered mental status possible metabolic encephalopathy complicated with history of CVA with right-sided residual weakness now with bilateral weakness and increase sedation, possible infectious process versus TIA: Overall patient improved. Will continue with IV fluid hydration. Will continue with antibiotic therapy at this time. Medications reviewed. Patient no longer taking Eliquis that he took in the past but will need to verify home medications. Suspect TIA. Patient with history of CVA in the past with residual right-sided weakness. Will continue with aspirin but add Plavix. Will discuss with Neurology. Cardiology consulted for further recommendation as well. Carotid Doppler shows carotid arterial disease without any significant stenosis. Echocardiogram pending. Patient not able to perform MRI yesterday. Await MRI on Monday. Will have physical therapy assess ambulation. My understanding patient is bed bound. Will continue to monitor closely. Dementia, mild: Will continue with his medication Atrial fibrillation not on chronic anti coagulation therapy: Will verify home medication and determine whether he is taking anti coagulation therapy. Continue with aspirin and Plavix for now. Patient likely high risk for chronic anti coagulation therapy due to age. Will discuss with cardiology Hypertension: Will continue with medication. Hyperlipidemia: Will continue with Lipitor. LDL 101. BPH: Will continue with medication. Renal sufficiency likely mild dehydration: Will continue with low-dose IV fluids. Overall improved. Patient bed-bound: Continue to monitor. Patient will likely return to assisted living facility at discharge Time Spent Managing Pts Care (In Minutes): 55
--- NOTE | 2018-06-09 12:22 | CON ---
CARDIOLOGY CONSULT. Attending Physician: Dr Dominique Reason For Consult: Atrial fibrillation. History Of Present Illness: The patient has a history that is very complicated. There are multiple strokes. He has dementia. There is a history of carotid stenosis, never bad enough to require carotid surgery. At one point , he has had a hemorrhagic stroke. His head CT now does not indicate that he has had a hemorrhage that has left any lasting effect. He has underlying dementia that is quite severe. The carotid Doppler reveals moderate plaque. The patient was brought to the hospital because of worsening confusion. The patient's baseline is a state of very severe confusion. He has severe dementia and because of sometimes difficulty controlling emotions and behavior, he is on sedatives as well he takes as an outpatient diazepam, memantine and donepezil, that are all psychoactive drugs. He also takes Flomax, furosemide, calcium carbonate, doxazosin, gabapentin, hydrogen peroxide, gentamicin, cranberry, hydralazine, aspirin, acetaminophen, loperamide, ranitidine, and sodium chloride ointment. He has what looks like a basal cell carcinoma, that Mrs Schultz currently wants to get removed. Physical Examination: General: He is 5 feet 8 inches, 187 pounds. He is arousable, but prefers to sleep. He can answer simple questions yes or no. Does not speak in any complete sentences. Lungs: Clear. Heart: Irregularly irregular. Abdomen: Soft. Extremities: Mild edema, distal pulses palpable. Diagnostic Data: Electrocardiogram shows atrial fib, rapid response. Heart rate 105. The patient could probably have a little bit of beta blank in addition what he is on to slow his heart rate a little bit. We could try a slow release Toprol-XL 12.5 once a day to see if that helps him at all. He is not a candidate for chronic anticoagulation. RUPESH/CARLOTTA Voice ID: [id number] Report ID: [id number] ALEXIS
[2018-06-09] MEDS ORDERED: VANCOMYCIN 1.5 GM in NA CHLORIDE 0.9% 500 ML IVPB SCH (17:00)
[2018-06-09] MEDS: ENOXAPARIN 40 MG/0.4 ML SQ SCH (17:32)
[2018-06-09] MEDS: Levofloxacin500mg IV 500 MG/100 ML BAG IV SCH (17:33)
[2018-06-09] MEDS: NA CHLORIDE 0.9% 1,000 ML IV SCH ×2 (17:33→20:11)
[2018-06-09] MEDS: ATORVASTATIN 40 MG TAB PO SCH (20:06)
[2018-06-09] MEDS: GABAPENTIN 300 MG CAP PO SCH (20:06)
[2018-06-09] MEDS: DOXAZOSIN 2 MG TAB PO SCH (20:06)
[2018-06-09] MEDS: DONEPEZIL HCL 5 MG TAB PO SCH (20:06)
[2018-06-09] MEDS ORDERED: HOME MED 1 EA UNK (Gabapentin [Gralise] 600 MG) PO SCH (21:00)
[2018-06-10] MEDS: METOPROLOL XL 25 MG TAB PO SCH (05:34)
[2018-06-10 06:00] LABS: Absolute Lymphocytes (CBC) 0.8 K/uL (0.7-4.9); Absolute Monocytes 0.5 K/uL (0.1-1.3); Absolute Neutrophil 2.1 K/uL (1.8-8.0); Basophils % 0.6 % (0-1.3); Hematocrit 31.8 % (39.6-49.0); Lymphocytes % 20.8 % (15.3-44.8); MCH 32.7 pg (27.0-35.0); MCV 91.7 fL (80-100); MPV 7.6 fL (7.6-11.3); Monocytes % 14.5 % (3.3-12.3); RBC Red Blood Cell Count 3.46 M/uL (4.33-5.43)
[2018-06-10 06:01] LABS: Magnesium 2.1 mg/dL (1.8-2.4); Potassium 3.7 mmol/L (3.5-5.1)
--- NOTE | 2018-06-10 10:06 | P.PN ---
Subjective Date of Service: 06/10/18 Primary Care Provider: Dr. Cummings Chief Complaint: Altered mental status Subjective: Improving Physical Examination - Vital Signs Temperature: 97.5 F Blood Pressure: 134/72 Pulse: 83 Respirations: 20 Pulse Ox (%): 98 - Physical Exam General: Alert, In no apparent distress, Cooperative HEENT: Atraumatic Neck: Supple Respiratory: Clear to auscultation bilaterally, Normal air movement Cardiovascular: Irregular heart rate/rhythm (Atrial fibrillation, rate controlled ) Gastrointestinal: Normal bowel sounds, Soft and benign, Non-distended, No tenderness, No masses, No rebound, No guarding Musculoskeletal: No erythema, No tenderness, No warmth Integumentary: No tenderness/swelling, No erythema, No warmth, No cyanosis Neurological: Normal speech, Normal strength at 5/5 x4 extr, Normal tone, Normal affect - Studies Medications List Reviewed: Yes Assessment & Plan Discharge Plan: Other Plan to discharge in: 24 Hours Physician Review Additional Text: Impression: Altered mental status possible metabolic encephalopathy complicated with history of CVA with right-sided residual weakness now with bilateral weakness and increased sedation, possible infectious process versus TIA Dementia, mild Atrial fibrillation not on chronic anti coagulation therapy Hypertension Hyperlipidemia BPH Renal sufficiency likely mild dehydration Patient bed-bound Plan: Altered mental status possible metabolic encephalopathy complicated with history of CVA with right-sided residual weakness now with bilateral weakness and increase sedation, possible infectious process versus TIA: Overall patient improved. Patient continues to improve. Will continue with IV fluids. Suspect TIA. Patient with history of CVA in the past with residual right-sided weakness. Patient on aspirin and Plavix. Neurology to assess tomorrow. Will obtain MRI tomorrow. Echocardiogram pending. My understanding patient is bed bound. Physical therapy to assess. Will continue to monitor closely. Dementia, mild: Will continue with his medication Atrial fibrillation not on chronic anti coagulation therapy: Will continue with aspirin and Plavix. Cardiology added low-dose beta-blank therapy. Rate better controlled. Patient not a candidate for chronic anti coagulation therapy due to age and risk of fall and bleeding. Hypertension: Will continue with medication. Cardiology added low dose beta blank. Hyperlipidemia: Will continue with Lipitor. LDL 101. BPH: Will continue with medication. Renal sufficiency likely mild dehydration: Will continue with low-dose IV fluids. Overall improved. Patient bed-bound: Continue to monitor. Patient will likely return to assisted living facility at discharge Time Spent Managing Pts Care (In Minutes): 55
[2018-06-10] MEDS: ASPIRIN 81 MG CHEWABLE TABLET PO SCH ×2 (10:09→10:10)
[2018-06-10] MEDS: MEMANTINE HCL 10 MG TABLET PO SCH ×2 (10:10→20:41)
[2018-06-10] MEDS: CLOPIDOGREL 75 MG TABLET PO SCH (10:10)
[2018-06-10] MEDS: TAMSULOSIN 0.4 MG SR CAP PO SCH (10:10)
[2018-06-10] MEDS: NA CHLORIDE 0.9% 1,000 ML IV SCH (10:10)
[2018-06-10] MEDS: PANTOPRAZOLE 40 MG INJ IVP SCH (10:10)
[2018-06-10 10:49] VITALS: O2SAT 96
[2018-06-10] MEDS: ENOXAPARIN 40 MG/0.4 ML SQ SCH (17:03)
[2018-06-10] MEDS: ATORVASTATIN 40 MG TAB PO SCH (20:40)
[2018-06-10] MEDS: DOXAZOSIN 2 MG TAB PO SCH (20:40)
[2018-06-10] MEDS: GABAPENTIN 300 MG CAP PO SCH (20:40)
[2018-06-10] MEDS: DONEPEZIL HCL 5 MG TAB PO SCH (20:41)
[2018-06-11] MEDS: NA CHLORIDE 0.9% 1,000 ML IV SCH (02:13)
[2018-06-11 04:25] LABS: Absolute Lymphocytes (CBC) 1.2 K/uL (0.7-4.9); Absolute Monocytes 0.6 K/uL (0.1-1.3); Absolute Neutrophil 2.2 K/uL (1.8-8.0); Basophils % 0.9 % (0-1.3); Eosinophils % 6.9 % (0-4.4); Hematocrit 32.3 % (39.6-49.0); Lymphocytes % 27.5 % (15.3-44.8); MCH 31.4 pg (27.0-35.0); MCV 91.1 fL (80-100); MPV 7.9 fL (7.6-11.3); Monocytes % 13.2 % (3.3-12.3); RBC Red Blood Cell Count 3.54 M/uL (4.33-5.43)
[2018-06-11 04:26] LABS: Magnesium 1.8 mg/dL (1.8-2.4); Potassium 3.9 mmol/L (3.5-5.1)
[2018-06-11] MEDS: METOPROLOL XL 25 MG TAB PO SCH (05:08)
[2018-06-11] MEDS: MEMANTINE HCL 10 MG TABLET PO SCH (09:00)
[2018-06-11] MEDS: TAMSULOSIN 0.4 MG SR CAP PO SCH (09:00)
[2018-06-11] MEDS: PANTOPRAZOLE 40 MG INJ IVP SCH (09:00)
[2018-06-11] MEDS: CLOPIDOGREL 75 MG TABLET PO SCH (09:00)
[2018-06-11] MEDS ORDERED: LORazepam 2 MG/ML VIAL IV ONE (09:42)
--- NOTE | 2018-06-11 11:42 | P.DS ---
Admission Date: 06/08/18 Discharge Date: 06/11/18 Primary Care Provider: Dr. Cummings Disposition: TRANSFER TO ASSISTED Discharge Condition: GOOD Reason for Admission: Altered mental status Consultations: Cardiology-Dr. Macedo Procedures: Carotid Doppler: FINDINGS: The velocity of the right internal carotid artery equals 76 cm/sec. The right ICA/CCA ratio 1.5 The velocity of the left internal carotid artery equals 67cm/sec. The left ICA/ CCA ratio 0.9 Moderate plaque is present within the carotid arteries. The vertebral arteries demonstrate antegrade flow IMPRESSION: Moderate plaque within the right carotid bulb without evidence of a hemodynamically significant stenosis . Moderate plaque within the left carotid bulb without evidence of a hemodynamically significant stenosis The degree of carotid stenosis determine using NASCET criteria. Moderate 50- 69 % stenosis. Severe 70-94% stenosis CT head: COMPARISON: September 2016 TECHNIQUE: Computed axial tomography of the head was obtained. IV contrast was not requested. All CT scans are performed using dose optimization technique as appropriate and may include automated exposure control or mA/KV adjustment according to patient size. FINDINGS: An acute intracranial bleed is not seen . The ventricles are normal in caliber. No extra-axial fluid collection is noted. Right parietal scalp swelling is seen Fluid within the sinuses/ mastoids is not seen. IMPRESSION: No acute intracranial abnormality is seen. Medical Problem List: Altered mental status, bilateral weakness likely related to TIA and cardiac involvement complicated with history of CVA with right-sided residual weakness Dementia, mild Atrial fibrillation not on chronic anti coagulation therapy due to risk factors Hypertension Hyperlipidemia BPH Renal sufficiency likely mild dehydration Skin cancer to scalp Patient bed-bound Brief History of Present Illness: 87-year-old male presented emergency room with altered mental status. Patient is a resident at an assisted living facility. He has been there for the past year. Patient with history of dementia, hypertension, hyperlipidemia, previous CVA with right-sided residual weakness, atrial fibrillation on chronic anti coalition therapy and BPH. Most information came from the son and ER physician. Patient has been with increased fatigue over the last day. He is sleeping more. This is not his normal baseline. Unknown if patient has had fever or chills. Patient takes multiple medications. In the ER patient evaluated. Patient with atrial fibrillation rate controlled, hemoglobin 13.2, white count 4.2, BUN of 23, creatinine 1.3, GFR 52. Glucose 144. Sodium 143, potassium 3.4, urinalysis unremarkable. Lactic acid 2.8, pro calcitonin negative. Troponin within normal range. head CT shows no acute stroke. Patient admitted for further evaluation. When I saw the patient ER, he responded to pain and voice. Increased fatigue noted. Patient does not appear in any respiratory distress Hospital Course: Patient presented with altered mental status and bilateral weakness. Patient with history of CVA with right-sided weakness. Patient evaluated in the emergency room. Patient likely had TIA. Plavix added to aspirin upon admission along with Lipitor. Patient was given medication in the hospital. Improvement noted. Patient evaluated by Cardiology. Cardiology made adjustments to medication, adding metoprolol. CT scan did not reveal any acute stroke. Blood, urine cultures negative. Chest x-ray unremarkable. Carotid Doppler showed plaque but no significant stenosis. Patient not able to perform MRI. No infectious cause was suspected. Patient improved. Patient is mainly bed-bound and lives at assisted living facility. At discharge patient will continue with aspirin 81 mg daily, Plavix 75 mg daily, and Lipitor 40 mg daily. Patient will return to assisted living facility. Patient may follow up with neurology as an outpatient to further monitor and address. Patient may follow up with cardiology to follow up this hospitalization. Patient with dementia. At discharge patient will continue with his medication including Namenda 10 mg 1 pill twice daily and Aricept 10 mg 1 pill daily. Patient also takes Valium 5 mg at night as needed for agitation. Recommendation to follow up with neurology as an outpatient to further monitor and address. Patient is DNR. Patient has atrial fibrillation and hypertension. He is not on chronic anti coagulation therapy for atrial fibrillation. Cardiology was consulted. Cardiology made adjustments to his medication. Cardiology added medication- metoprolol during his stay. Rate improved. Patient remains in atrial fibrillation but rate controlled. No further cardiac intervention required. At discharge patient will continue with aspirin 81 mg daily, Plavix 75 mg daily , and metoprolol XL 12.5 mg 1 pill daily. Patient will also continue with Lasix 40 mg 1 pill daily as needed for edema to the lower extremity. At discharge hydralazine has been discontinued. Recommendation is to maintain blood pressures less 150/80. Further adjustment can be done by his PCP or cardiology. Patient not a candidate for chronic anti coagulation therapy due to risk of fall, bleeding and age. Patient may follow up with cardiology as directed. Patient has hyperlipidemia. LDL 101. Patient started on Lipitor 40 mg daily. At discharge, patient will continue with Lipitor 40 mg daily at discharge. Patient has BPH. Patient will continue with his medications-Flomax 0.4 mg daily and Cardura 1 mg 1 pill daily. Recommendation for the patient to follow up with urology outpatient to further monitor. Patient may continue with Neurontin 600 mg at bedtime. Patient has skin cancer to the scalp. He is to have Dermatology to evaluate and perform surgery later this week. Vital Signs/Physical Exam: Temp Pulse Resp BP Pulse Ox 97.3 F 77 16 138/70 96 06/11/18 08:00 06/11/18 08:00 06/11/18 08:00 06/11/18 08:00 06/11/18 08:00 General: Alert, In no apparent distress, Cooperative HEENT: Atraumatic Neck: Supple Respiratory: Clear to auscultation bilaterally, Normal air movement Cardiovascular: Irregular heart rate/rhythm (Atrial fibrillation, rate controlled) Gastrointestinal: Normal bowel sounds, Soft and benign, Non-distended, No tenderness, No masses, No rebound, No guarding Musculoskeletal: No erythema, No tenderness, No warmth Integumentary: No tenderness/swelling, No erythema, No warmth, No cyanosis Neurological: Normal speech, Normal affect, Abnormal strength (Right-sided residual weakness) Laboratory Data at Discharge: WBC 4.3 K/uL (4.3-10.9) D 06/11/18 03:36 Hgb 11.1 g/dL (13.6-17.9) L 06/11/18 03:36 Hct 32.3 % (39.6-49.0) L 06/11/18 03:36 Plt Count 140 K/uL (152-406) L 06/11/18 03:36 PT 11.9 SECONDS (9.5-12.5) 06/08/18 15:00 INR 1.01 06/08/18 15:00 APTT 28.7 SECONDS (24.3-36.9) 06/08/18 15:00 Sodium 140 mmol/L (136-145) 06/11/18 03:36 Potassium 3.9 mmol/L (3.5-5.1) 06/11/18 03:36 BUN 16 mg/dL (7-18) 06/11/18 03:36 Creatinine 1.00 mg/dL (0.55-1.3) 06/11/18 03:36 Glucose 90 mg/dL (74-106) 06/11/18 03:36 Magnesium 1.8 mg/dL (1.8-2.4) 06/11/18 03:36 Troponin I 0.02 ng/mL (0.0-0.045) 06/09/18 04:42 Triglycerides 86 mg/dL (<150) 06/09/18 04:42 Cholesterol 156 mg/dL (<200) 06/09/18 04:42 HDL Cholesterol 38 mg/dL (40-60) L 06/09/18 04:42 Cholesterol/HDL Ratio 4.11 06/09/18 04:42 Home Medications: Furosemide [Lasix*] 40 mg PO DAILY PRN 01/03/14 Tamsulosin [Flomax*] 0.4 mg PO DAILY 01/03/14 Calcium Carbonate/Vitamin D3 [Caltrate 600 Plus D3 Tablet] 1 mg PO DAILY Donepezil [Aricept*] 10 mg PO BEDTIME 04/07/16 Doxazosin Mesylate [Cardura] 1 mg PO BEDTIME 04/07/16 Acetaminophen [Tylenol Extra Strength] 500 mg PO BIDP PRN 06/08/18 Aspirin 81 mg PO DAILY 06/08/18 Cranberry 1,000 mg PO TID 06/08/18 Diazepam [Valium] 5 mg PO BEDTIME PRN 06/08/18 Gentamicin Sulfate 3.5 gm OP BID 06/08/18 Hydrogen Peroxide 237 ml TP BID 06/08/18 Loperamide [Imodium*] 2 mg PO PRN PRN 06/08/18 Memantine HCl [Namenda*] 10 mg PO BID 06/08/18 Sodium Chloride [Messi-128] 3.5 gm OP BID 06/08/18 Gabapentin 600 mg PO BEDTIME 06/09/18 Atorvastatin Calcium [Lipitor] 40 mg PO BEDTIME #30 tab 06/11/18 Clopidogrel Bisulfate [Plavix*] 75 mg PO DAILY #30 tablet 06/11/18 Metoprolol Succinate [Toprol Xl*] 12.5 mg PO [id number] #30 tab 06/11/18 Pantoprazole [Protonix Tab] 40 mg PO DAILY #30 tab 06/11/18 New Medications: Atorvastatin Calcium [Lipitor] 40 mg PO BEDTIME #30 tab Clopidogrel Bisulfate [Plavix*] 75 mg PO DAILY #30 tablet Metoprolol Succinate [Toprol Xl*] 12.5 mg PO [id number] #30 tab Pantoprazole [Protonix Tab] 40 mg PO DAILY #30 tab Patient Discharge Instructions: 1. Patient will need a follow up with PCP in 1 week to follow up this hospitalization. Patient will return to assisted living facility. 2. Patient presented with altered mental status and bilateral weakness. Patient with history of CVA with right-sided weakness. Patient evaluated in the emergency room. Patient likely had TIA. Plavix added to aspirin upon admission along with Lipitor. Patient was given medication in the hospital. Improvement noted. Patient evaluated by Cardiology. Cardiology made adjustments to medication, adding metoprolol. CT scan did not reveal any acute stroke. Blood, urine cultures negative. Chest x-ray unremarkable. Carotid Doppler showed plaque but no significant stenosis. Patient not able to perform MRI. No infectious cause was suspected. Patient improved. Patient is mainly bed-bound and lives at assisted living facility. At discharge patient will continue with aspirin 81 mg daily, Plavix 75 mg daily, and Lipitor 40 mg daily. Patient will return to assisted living facility. Patient may follow up with neurology as an outpatient to further monitor and address. Patient may follow up with cardiology to follow up this hospitalization. 3. Patient with dementia. At discharge patient will continue with his medication including Namenda 10 mg 1 pill twice daily and Aricept 10 mg 1 pill daily. Patient also takes Valium 5 mg at night as needed for agitation. Recommendation to follow up with neurology as an outpatient to further monitor and address. Patient is DNR. 4. Patient has atrial fibrillation and hypertension. He is not on chronic anti coagulation therapy for atrial fibrillation. Cardiology was consulted. Cardiology made adjustments to his medication. Cardiology added medication-metoprolol during his stay. Rate improved. Patient remains in atrial fibrillation but rate controlled. No further cardiac intervention required. At discharge patient will continue with aspirin 81 mg daily, Plavix 75 mg daily, and metoprolol XL 12.5 mg 1 pill daily. Patient will also continue with Lasix 40 mg 1 pill daily as needed for edema to the lower extremity. At discharge hydralazine has been discontinued. Recommendation is to maintain blood pressures less 150/80. Further adjustment can be done by his PCP or cardiology. Patient not a candidate for chronic anti coagulation therapy due to risk of fall, bleeding and age. Patient may follow up with cardiology as directed. 5. Patient has hyperlipidemia. LDL 101. Patient started on Lipitor 40 mg daily. At discharge, patient will continue with Lipitor 40 mg daily at discharge. 6. Patient has BPH. Patient will continue with his medications-Flomax 0.4 mg daily and Cardura 1 mg 1 pill daily. Recommendation for the patient to follow up with urology outpatient to further monitor. 7. Patient may continue with Neurontin 600 mg at bedtime. 8. Patient has skin cancer to the scalp. He is to have Dermatology to evaluate and perform surgery later this week. Diet: AHA Activity: Fall precautions Time spent managing pt's care (in minutes): 55
[2018-06-11 13:06] VITALS: BP 140/67; TEMP 97.2
--- NOTE | 2018-06-11 15:57 | ECHO ---
HEIGHT: 5 ft 8 in WEIGHT: 187 lb 0 oz DATE OF STUDY: 06/11/[address]: Jordan Dominique DO 2-DIMENSIONAL: YES M.MODE: YES DOPPLER: YES COLOR FLOW: YES TDS: NO PORTABLE: NO DEFINITY: NO BUBBLE STUDY: NO DIAGNOSIS: STROKE CARDIAC HISTORY: CATHERIZATION: NO SURGERY: NO PROSTHETIC VALVE: NO PACEMAKER: NO MEASUREMENTS (cm) DIASTOLIC (NORMALS) SYSTOLIC (NORMALS) IVSd 1.1 (0.6-1.2) LA Diam 5.0 (1.9-4.0) LVEF 55% LVIDd 4.2 (3.5-5.7) LVIDs 3.0 (2.0-3.5) %FS 29% LVPWd 1.2 (0.6-1.2) Ao Diam 3.5 (2.0-3.7) 2 DIMENSIONAL ASSESSMENT: RIGHT ATRIUM: NORMAL LEFT ATRIUM: DILATED RIGHT VENTRICLE: NORMAL LEFT VENTRICLE: NORMAL TRICUSPID VALVE: NORMAL MITRAL VALVE: MITRAL ANNULAR CALCIFICATION PULMONIC VALVE: NORMAL AORTIC VALVE: NORMAL PERICARDIAL EFFUSION: NONE AORTIC ROOT: NORMAL LEFT VENTRICULAR WALL MOTION: NORMAL. DOPPLER/COLOR FLOW: MILD MITRAL AND TRICUSPID REGURGITATION- NORMAL RIGHT VENTRICULAR SYSTOLIC PRESSURE. COMMENTS: NORMAL LEFT VENTRCICULAR EJECTION FRACTION. DILATED LEFT ATRIUM. MITRAL ANNULAR CALCIFICATION. MILD MITRAL AND TRICUSPID REGURGITATION. LEFT PLEURAL EFFUSION. TECHNOLOGIST: RULA HARDING
== END 2018-06-11 17:05 | disposition home health service (06) | DRG 69 ==
LOC: ER 14:45 → ERHOLD 17:27 → 4TH 19:53
PROVIDERS: ADMIT Family Medicine; ATTEND Family Medicine
DX: G45.9 Transient cerebral ischemic attack, unspecified (principal); I69.351 Hemiplegia and hemiparesis following cerebral infarction affecting right dominant side; F03.90 Unspecified dementia, unspecified severity, without behavioral disturbance, psychotic disturbance, mood disturbance, and anxiety; I10 Essential (primary) hypertension; E78.5 Hyperlipidemia, unspecified; I48.91 Unspecified atrial fibrillation; N40.0 Benign prostatic hyperplasia without lower urinary tract symptoms; E86.0 Dehydration; N28.9 Disorder of kidney and ureter, unspecified; Z66 Do not resuscitate; C44.40 Unspecified malignant neoplasm of skin of scalp and neck; Z88.1 Allergy status to other antibiotic agents; Z74.01 Bed confinement status
CPT/HCPCS: 36415; 51702; 70450; 71045; 80048; 80061; 81003; 81015; 82550; 82553; 83605; 83735; 84145; 84436; 84443; 84484; 85025; 85610; 85730; 87040; 87086; 87088; 87205; 93005; 93306; 93880; 96361; 96374; 99285; C9113; J1650; J7030

== ENCOUNTER 2018-07-09 09:25 | Emergency (ER) | payer OTHER ==
--- OUTSIDE RECORDS SUMMARY | 2018-07-09 09:30 | XMS REPORT ---
:1930 [facility] Address [address] [place] [place] [address] Care Team Providers Name Role Phone [place] [...] Comments WHITE BLOOD CELL COUNT (BEAKER) (test bccz=521) 5.2 K/ L 4.0-10.0 RED BLOOD CELL COUNT (BEAKER) (test timc=550) 4.14 M/ L 4.20-5.80 HEMOGLOBIN (BEAKER) (test drsg=822) 12.8 GM/DL 13.0-16.8 HEMATOCRIT (BEAKER) (test ttdg=781) 37.2 % 40.0-50.0 MEAN CORPUSCULAR VOLUME (BEAKER) (test zfvi=447) 89.9 fL 82.0-98.0 MEAN CORPUSCULAR HEMOGLOBIN (BEAKER) (test ozpo=614) 30.9 pg 27.0-33.0 MEAN CORPUSCULAR HEMOGLOBIN CONC (BEAKER) (test fttm=361) 34.4 GM/DL 32.0- 36.0 RED CELL DISTRIBUTION WIDTH (BEAKER) (test njyq=544) 16.4 % 10.3-14.2 PLATELET COUNT (BEAKER) (test laqp=031) 133 K/CU MM 150-430 MEAN PLATELET VOLUME (BEAKER) (test gpng=553) 7.0 fL 6.5-10.5 NUCLEATED RED BLOOD CELLS (BEAKER) (test tiij=611) 0 /100 WBC 0-0 NEUTROPHILS RELATIVE PERCENT (BEAKER) (test kuoc=512) 72 % LYMPHOCYTES RELATIVE PERCENT (BEAKER) (test yhpr=367) 21 % MONOCYTES RELATIVE PERCENT (BEAKER) (test zfuw=121) 5 % EOSINOPHILS RELATIVE PERCENT (BEAKER) (test cybu=702) 1 % BASOPHILS RELATIVE PERCENT (BEAKER) (test jeul=641) 0 % NEUTROPHILS ABSOLUTE COUNT (BEAKER) (test sfzc=602) 3.77 K/ L 1.80-8.00 LYMPHOCYTES ABSOLUTE COUNT (BEAKER) (test nzoz=707) 1.11 K/ L 1.48-4.50 MONOCYTES ABSOLUTE COUNT (BEAKER) (test nosm=963) 0.28 K/ L 0.00-1.30 EOSINOPHILS ABSOLUTE COUNT (BEAKER) (test caio=091) 0.06 K/ L 0.00-0.50 BASOPHILS ABSOLUTE COUNT (BEAKER) (test xyty=687) 0.00 K/ L 0.00-0.20 0.00POCT-GLUCOSE [id number] 21:13:00 Test Item Value Reference Range Comments POC-GLUCOSE METER (BEAKER) 116 mg/dL 70-110 TESTED AT [address] (test ofpp=7061) [place] [address] POCT-GLUCOSE [id number] 12:11:00 Test Item Value Reference Range Comments POC-GLUCOSE METER (BEAKER) 120 mg/dL 70-110 TESTED AT [address] (test nvlw=0348) [place] [address] POCT-GLUCOSE [id number] 08:22:00 Test Item Value Reference Range Comments POC-GLUCOSE METER (BEAKER) 114 mg/dL 70-110 TESTED AT [address] (test mukk=8944) [place] [address] BASIC METABOLIC [id number] 05:49:00 Test Item Value Reference Range Comments SODIUM (BEAKER) (test 134 meq/L 136-145 scgo=427) POTASSIUM (BEAKER) (test 3.6 meq/L 3.5-5.1 myug=308) CHLORIDE (BEAKER) (test 102 meq/L 98-107 muwb=530) CO2 (BEAKER) (test 23 meq/L 22-29 qney=035) BLOOD UREA NITROGEN 24 mg/dL 7-21 (BEAKER) (test stge=123) CREATININE (BEAKER) (test 1.09 mg/dL 0.57-1.25 vara=151) GLUCOSE RANDOM (BEAKER) 95 mg/dL 70-105 (test enrq=022) CALCIUM (BEAKER) (test 8.2 mg/dL 8.4-10.2 uvxj=873) EGFR (BEAKER) (test 64 mL/min/1.73 sq m ESTIMATED GFR IS NOT eqmn=4680) ACCURATE CREATININE CLEARANCE IN PREDICTING GLOMERULAR FILTRATION RATE. ESTIMATED GFR IS NOT APPLICABLE FOR DIALYSIS PATIENTS. Once on admission and Daily AM afterwardsCBC W/PLT COUNT & AUTO [id number] 05:30:00 Test Item Value Reference Range Comments WHITE BLOOD CELL COUNT (BEAKER) (test wsou=470) 5.0 K/ L 4.0-10.0 RED BLOOD CELL COUNT (BEAKER) (test edip=567) 3.96 M/ L 4.20-5.80 HEMOGLOBIN (BEAKER) (test fnrr=579) 12.2 GM/DL 13.0-16.8 HEMATOCRIT (BEAKER) (test czsk=653) 35.6 % 40.0-50.0 MEAN CORPUSCULAR VOLUME (BEAKER) (test exwp=516) 90.1 fL 82.0-98.0 MEAN CORPUSCULAR HEMOGLOBIN (BEAKER) (test 30.8 pg 27.0-33.0 tdhx=846) MEAN CORPUSCULAR HEMOGLOBIN CONC (BEAKER) (test 34.2 GM/DL 32.0-36.0 bagq=714) RED CELL DISTRIBUTION WIDTH (BEAKER) (test 16.3 % 10.3-14.2 zmrl=326) PLATELET COUNT (BEAKER) (test dlny=876) 136 K/CU MM 150-430 MEAN PLATELET VOLUME (BEAKER) (test axbf=072) 7.2 fL 6.5-10.5 NUCLEATED RED BLOOD CELLS (BEAKER) (test 0 /100 WBC 0-0 rvyv=820) NEUTROPHILS RELATIVE PERCENT (BEAKER) (test 61 % kbhp=079) LYMPHOCYTES RELATIVE PERCENT (BEAKER) (test 21 % esso=201) MONOCYTES RELATIVE PERCENT (BEAKER) (test 17 % tzas=500) EOSINOPHILS RELATIVE PERCENT (BEAKER) (test 1 % tfzk=142) BASOPHILS RELATIVE PERCENT (BEAKER) (test 0 % yvwl=717) NEUTROPHILS ABSOLUTE COUNT (BEAKER) (test 3.02 K/ L 1.80-8.00 xdlj=462) LYMPHOCYTES ABSOLUTE COUNT (BEAKER) (test 1.06 K/ L 1.48-4.50 tkdl=250) MONOCYTES ABSOLUTE COUNT (BEAKER) (test 0.84 K/ L 0.00-1.30 alam=211) EOSINOPHILS ABSOLUTE COUNT (BEAKER) (test 0.04 K/ L 0.00-0.50 gvof=666) BASOPHILS ABSOLUTE COUNT (BEAKER) (test 0.01 K/ L 0.00-0.20 fvmg=497) 0.00POCT-GLUCOSE [id number] 22:59:00 Test Item Value Reference Range Comments POC-GLUCOSE METER (BEAKER) 103 mg/dL 70-110 TESTED AT [address] (test mmoy=1561) [place] [address] POCT-GLUCOSE [id number] 17:41:00 Test Item Value Reference Range Comments POC-GLUCOSE METER (BEAKER) 126 mg/dL 70-110 TESTED AT [address] (test zxnj=7883) [place] [address] POCT-GLUCOSE [id number] 13:19:00 Test Item Value Reference Range Comments POC-GLUCOSE METER (BEAKER) 112 mg/dL 70-110 TESTED AT [address] (test burh=1051) [place] [address] HEMOGLOBIN [id number] 08:58:00 Test Item Value Reference Range Comments HEMOGLOBIN A1C (BEAKER) (test gijn=281) 5.4 % 4.3-6.1 POCT-GLUCOSE [id number] 07:53:00 Test Item Value Reference Range Comments POC-GLUCOSE METER (BEAKER) 103 mg/dL 70-110 TESTED AT [address] (test lwwq=9212) [place] [address] [id number] 04:13:00 Test Item Value Reference Range Comments PHOSPHORUS (BEAKER) (test ydrf=052) 2.2 mg/dL 2.3-4.7 Once on admission and Daily AM afterwardsOnce on admission and Daily AM afterwardsOnce on admission and Daily AM [id number] 04:13:00 Test Item Value Reference Range Comments MAGNESIUM (BEAKER) (test vmrd=622) 1.8 mg/dL 1.6-2.6 Once on admission and Daily AM afterwardsOnce on admission and Daily AM afterwardsOnce on admission and Daily AM afterwardsBASIC METABOLIC [id number] 04:13:00 Test Item Value Reference Range Comments SODIUM (BEAKER) (test 139 meq/L 136-145 fcou=460) POTASSIUM (BEAKER) (test 3.7 meq/L 3.5-5.1 asor=623) CHLORIDE (BEAKER) (test 106 meq/L 98-107 yjwp=223) CO2 (BEAKER) (test 26 meq/L 22-29 npyw=502) BLOOD UREA NITROGEN 27 mg/dL 7-21 (BEAKER) (test dxjb=150) CREATININE (BEAKER) (test 1.17 mg/dL 0.57-1.25 trmy=982) GLUCOSE RANDOM (BEAKER) 95 mg/dL 70-105 (test bmmn=396) CALCIUM (BEAKER) (test 8.2 mg/dL 8.4-10.2 dyvl=802) EGFR (BEAKER) (test 59 mL/min/1.73 sq m ESTIMATED GFR IS NOT dwrq=2390) ACCURATE CREATININE CLEARANCE IN PREDICTING GLOMERULAR FILTRATION RATE. ESTIMATED GFR IS NOT APPLICABLE FOR DIALYSIS PATIENTS. Once on admission and Daily AM afterwardsOnce on admission and Daily AM afterwardsOnce on admission and Daily AM afterwardsCBC W/PLT COUNT & AUTO [id number] 03:57:00 Test Item Value Reference Range Comments WHITE BLOOD CELL COUNT (BEAKER) (test chqx=992) 6.9 K/ L 4.0-10.0 RED BLOOD CELL COUNT (BEAKER) (test ioet=007) 3.71 M/ L 4.20-5.80 HEMOGLOBIN (BEAKER) (test efgw=831) 11.7 GM/DL 13.0-16.8 HEMATOCRIT (BEAKER) (test megz=350) 33.7 % 40.0-50.0 MEAN CORPUSCULAR VOLUME (BEAKER) (test jjpv=059) 90.8 fL 82.0-98.0 MEAN CORPUSCULAR HEMOGLOBIN (BEAKER) (test 31.4 pg 27.0-33.0 krtk=379) MEAN CORPUSCULAR HEMOGLOBIN CONC (BEAKER) (test 34.6 GM/DL 32.0-36.0 flkq=363) RED CELL DISTRIBUTION WIDTH (BEAKER) (test 14.3 % 10.3-14.2 udfo=774) PLATELET COUNT (BEAKER) (test hvby=786) 122 K/CU MM 150-430 MEAN PLATELET VOLUME (BEAKER) (test vack=505) 6.6 fL 6.5-10.5 NUCLEATED RED BLOOD CELLS (BEAKER) (test 0 /100 WBC 0-0 cqia=550) NEUTROPHILS RELATIVE PERCENT (BEAKER) (test 63 % khrq=628) LYMPHOCYTES RELATIVE PERCENT (BEAKER) (test 22 % hmxj=144) MONOCYTES RELATIVE PERCENT (BEAKER) (test 14 % sqpa=651) EOSINOPHILS RELATIVE PERCENT (BEAKER) (test 1 % ikyv=696) BASOPHILS RELATIVE PERCENT (BEAKER) (test 0 % buml=024) NEUTROPHILS ABSOLUTE COUNT (BEAKER) (test 4.35 K/ L 1.80-8.00 qude=518) LYMPHOCYTES ABSOLUTE COUNT (BEAKER) (test 1.53 K/ L 1.48-4.50 osjl=178) MONOCYTES ABSOLUTE COUNT (BEAKER) (test 0.96 K/ L 0.00-1.30 ikjz=282) EOSINOPHILS ABSOLUTE COUNT (BEAKER) (test 0.05 K/ L 0.00-0.50 knrc=165) BASOPHILS ABSOLUTE COUNT (BEAKER) (test 0.00 K/ L 0.00-0.20 bkum=321) 0.00POCT-GLUCOSE [id number] 00:35:00 Test Item Value Reference Range Comments POC-GLUCOSE METER (BEAKER) 109 mg/dL 70-110 TESTED AT [address] (test xunk=3416) [place] [id number] POCT-GLUCOSE [id number] 21:03:00 Test Item Value Reference Range Comments POC-GLUCOSE METER (BEAKER) 149 mg/dL 70-110 TESTED AT [address] (test puqb=9570) [place] [id number] POCT-GLUCOSE [id number] 12:26:00 Test Item Value Reference Range Comments POC-GLUCOSE METER (BEAKER) 153 mg/dL 70-110 TESTED AT [address] (test ckmq=1213) [place] [address] [id number] 10:44:00 Test Item Value Reference Range Comments RPR SCREEN (BEAKER) (test stms=684) Nonreactive Nonreactive SEDIMENTATION [id number] 09:43:00 Test Item Value Reference Range Comments SEDIMENTATION RATE, ERYTHROCYTE (BEAKER) (test 33 mm/HR 0-40 hksg=242) VITAMIN [id number] 09:34:00 Test Item Value Reference Range Comments VITAMIN B12 (BEAKER) (test pjaq=932) 317 pg/mL 213-816 TSH/FREE T4 IF [id number] 09:34:00 Test Item Value Reference Range Comments THYROID STIMULATING HORMONE (BEAKER) (test 0.69 uIU/mL 0.35-4.94 tygk=018) TROPONIN [id number] 09:03:00 Test Item Value Reference Range Comments TROPONIN I (BEAKER) (test ohir=267) 0.01 ng/mL 0.00-0.03 Effective 06/24/2014: Reference Range [...] tachyarrhythmia.Once on admission and Daily AM afterwardsLIPID [id number] 08:56:00 Test Item Value Reference Range Comments TRIGLYCERIDES (BEAKER) (test ktvx=556) 46 mg/dL CHOLESTEROL (BEAKER) (test jcmn=454) 201 mg/dL HDL CHOLESTEROL (BEAKER) (test xyda=903) 55 mg/dL LDL CHOLESTEROL CALCULATED (BEAKER) (test 137 mg/dL zugo=388) Triglyceride Reference Range: Low Risk <150 Borderline 150- 199 High Risk 200-499 Very High Risk >=500Cholesterol Reference Range: Low Risk <200 Borderline 200-239 High Risk > 240HDL Cholesterol Reference Range: Low Risk >=60 High Risk <40LDL Cholesterol Reference Range: Optimal <100 Near Optimal 100-129 Borderline 130-159 High 160-189 Very High >=190 Once on admission and Daily AM afterwardsBASIC METABOLIC [id number] 08:56:00 Test Item Value Reference Range Comments SODIUM (BEAKER) (test 137 meq/L 136-145 ipcr=057) POTASSIUM (BEAKER) (test 3.8 meq/L 3.5-5.1 tcpc=249) CHLORIDE (BEAKER) (test 101 meq/L 98-107 xwmq=011) CO2 (BEAKER) (test 24 meq/L 22-29 udsj=456) BLOOD UREA NITROGEN 23 mg/dL 7-21 (BEAKER) (test uuyp=818) CREATININE (BEAKER) (test 1.12 mg/dL 0.57-1.25 vesd=581) GLUCOSE RANDOM (BEAKER) 132 mg/dL 70-105 (test vcsk=273) CALCIUM (BEAKER) (test 8.5 mg/dL 8.4-10.2 smzm=854) EGFR (BEAKER) (test 62 mL/min/1.73 sq m ESTIMATED GFR IS NOT jtxn=3025) ACCURATE CREATININE CLEARANCE IN PREDICTING GLOMERULAR FILTRATION RATE. ESTIMATED GFR IS NOT APPLICABLE FOR DIALYSIS PATIENTS. Once on admission and Daily AM afterwardsHEPATIC FUNCTION [id number] 08:55: 00 Test Item Value Reference Range Comments TOTAL PROTEIN (BEAKER) (test gzvz=051) 6.7 gm/dL 6.0-8.3 ALBUMIN (BEAKER) (test ijvf=4590) 3.9 g/dL 3.5-5.0 BILIRUBIN TOTAL (BEAKER) (test chpe=411) 0.6 mg/dL 0.2-1.2 BILIRUBIN DIRECT (BEAKER) (test slfb=851) 0.2 mg/dL 0.1-0.5 ALKALINE PHOSPHATASE (BEAKER) (test dzon=806) 71 U/L 40-150 AST (SGOT) (BEAKER) (test qzjj=129) 18 U/L 5-34 ALT (SGPT) (BEAKER) (test jjxb=601) 19 U/L 6-55 [id number] 08:38:00 Test Item Value Reference Range Comments PARTIAL THROMBOPLASTIN TIME (BEAKER) (test 29.7 seconds 22.5-36.0 zmgu=861) PROTHROMBIN [id number] 08:37:00 Test Item Value Reference Range Comments PROTIME (BEAKER) (test acws=112) 15.8 seconds 11.7-14.7 INR (BEAKER) (test sjee=461) 1.3 <=5.9 RECOMMENDED COUMADIN/WARFARIN INR THERAPY RANGESSTANDARD DOSE: 2.0 - 3.0 Includes: PROPHYLAXIS forvenous thrombosis, systemic embolization; TREATMENT for venous thrombosis and/or pulmonary embolus.HIGH RISK: Target INR is 2.5-3.5 for patients with mechanical heart valves.CBC W/PLT COUNT & AUTO [id number] 08:35:00 Test Item Value Reference Range Comments WHITE BLOOD CELL COUNT (BEAKER) (test nuzc=801) 4.6 K/ L 4.0-10.0 RED BLOOD CELL COUNT (BEAKER) (test irsv=673) 4.03 M/ L 4.20-5.80 HEMOGLOBIN (BEAKER) (test kceo=285) 12.5 GM/DL 13.0-16.8 HEMATOCRIT (BEAKER) (test lpsq=424) 36.4 % 40.0-50.0 MEAN CORPUSCULAR VOLUME (BEAKER) (test gajt=847) 90.4 fL 82.0-98.0 MEAN CORPUSCULAR HEMOGLOBIN (BEAKER) (test 31.1 pg 27.0-33.0 aetf=625) MEAN CORPUSCULAR HEMOGLOBIN CONC (BEAKER) (test 34.5 GM/DL 32.0-36.0 ydug=209) RED CELL DISTRIBUTION WIDTH (BEAKER) (test 14.3 % 10.3-14.2 uojr=228) PLATELET COUNT (BEAKER) (test usiw=534) 129 K/CU MM 150-430 MEAN PLATELET VOLUME (BEAKER) (test hdtv=944) 6.6 fL 6.5-10.5 NUCLEATED RED BLOOD CELLS (BEAKER) (test 0 /100 WBC 0-0 pqht=270) NEUTROPHILS RELATIVE PERCENT (BEAKER) (test 83 % ggoe=497) LYMPHOCYTES RELATIVE PERCENT (BEAKER) (test 13 % yjqm=076) MONOCYTES RELATIVE PERCENT (BEAKER) (test 4 % ysgs=382) EOSINOPHILS RELATIVE PERCENT (BEAKER) (test 0 % fkkf=754) BASOPHILS RELATIVE PERCENT (BEAKER) (test 0 % jprr=398) NEUTROPHILS ABSOLUTE COUNT (BEAKER) (test 3.79 K/ L 1.80-8.00 zkph=573) LYMPHOCYTES ABSOLUTE COUNT (BEAKER) (test 0.58 K/ L 1.48-4.50 odsl=960) MONOCYTES ABSOLUTE COUNT (BEAKER) (test 0.16 K/ L 0.00-1.30 ajpp=778) EOSINOPHILS ABSOLUTE COUNT (BEAKER) (test 0.01 K/ L 0.00-0.50 fwdq=502) BASOPHILS ABSOLUTE COUNT (BEAKER) (test 0.01 K/ L 0.00-0.20 dpih=283) 0.00
--- OUTSIDE RECORDS SUMMARY | 2018-07-09 09:30 | XMS REPORT | Clinical Summary ---
:1930 Author Organization [facility] Address [address] [place] [address] Care Team Providers Name Role Phone Richard [...] Not on file Results Not on fileafter 07/08/2017 Insurance Payer Benefit Plan / Subscriber ID Type Phone Address Group MEDICARE MEDICARE A B xxxxxxxxxx Medicare AETNA - AETNA MEDICARE xxxxxxxxx Maps Contracted [phone] MEDICARE MGD HMO POS 2 [id number] [place] [address] AET[employer] - [place] AETNA INDEMNITY xxxxxxxxx Comm CARE NON CONTR Advance Directives For more information, please contact:[address] [phone] Code Status Date Activated Date Inactivated Comments Full Code 02/21/2017 7:01 AM 02/24/2017 6:36 PM This code status was determined by: Patient
--- NOTE | 2018-07-09 10:37 | RAD REPORT ---
EXAM DESCRIPTION: RAD - Chest Single View - 07/09/2018 10:08 am CLINICAL HISTORY: DYSPNEA Chest pain. COMPARISON: Chest Single View dated 06/08/2018; Chest Single View dated 04/14/2018; Chest Single View d ated 02/21/2017; Chest Single View dated 09/27/2016 FINDINGS: Portable technique limits examination quality. Small left pleural effusion is likely present, chronic. The lungs are grossly clear of acute infiltra te. The heart is mildly enlarged in size. No displaced fractures.Degenerative changes present both sh oulders. IMPRESSION: No acute intrathoracic process suspected.
[2018-07-09 10:46] LABS: Magnesium 2.1 mg/dL (1.8-2.4); Potassium 4.5 mmol/L (3.5-5.1)
[2018-07-09 10:51] LABS: Absolute Lymphocytes (CBC) 1.1 K/uL (0.7-4.9); Absolute Monocytes 1.2 K/uL (0.1-1.3); Absolute Neutrophil 13.1 K/uL (1.8-8.0); Basophils % 0.2 % (0-1.3); Eosinophils % 0.1 % (0-4.4); Hematocrit 36.6 % (39.6-49.0); Lymphocytes % 7.1 % (15.3-44.8); MCH 31.6 pg (27.0-35.0); MCV 91.8 fL (80-100); Monocytes % 8.1 % (3.3-12.3); RBC Red Blood Cell Count 3.99 M/uL (4.33-5.43)
[2018-07-09] MEDS ORDERED: NA CHLORIDE 0.9% 1,000 ML ONE (11:07)
--- NOTE | 2018-07-09 11:40 | RAD REPORT ---
EXAM DESCRIPTION: CT - Abdomen Pelvis Wo Contrast - 07/09/2018 11:20 am CLINICAL HISTORY: Abdominal pain. no iv or oral contrast;Abd pain COMPARISON: CT ABD PELVIS W CONTRAST dated 06/20/2013; Chest Single View dated 07/09/2018 TECHNIQUE: CT imaging of the abdomen and pelvis was performed without contrast. Solid organ, bowel a nd vascular assessment is limited due to lack of IV and oral contrast. All CT scans are performed using dose optimization technique as appropriate and may include automated exposure control or mA/KV adjustment according to patient size. FINDINGS: Minimal right and small left pleural effusion is present. Noncontrast assessment of the liver shows no focal mass or biliary dilatation. Cholecystectomy clips are seen. The spleen, pancreas, adrenal glands are normal. Stones are present in both kidneys without hydronephrosis. Tiny stones are present in the dependent portion of the urinary bladder. Several rig ht renal cysts are present.Aortic atherosclerosis. No bowel obstruction, free air, free fluid or abscess. Diverticulosis affects the sigmoid colon witho ut diverticulitis. The appendix is not identified as a discrete structure, however, no secondary find ings of appendicitis are identified. Prominent lumbar degenerative changes are present with osteoarthritic changes involving both hips.Sma ll fat containing right inguinal hernia. IMPRESSION: Bilateral nephrolithiasis without hydronephrosis. Small stones are also present in the u rinary bladder. Diverticulosis coli affects the sigmoid colon without diverticulitis. Trace right and small left pleural effusion. A limited non-contrast examination was performed as detailed.
[2018-07-09 12:45] LABS: Urine Amorphous Sediment 1+ /HPF (NONE SEEN); Urine Bacteria <20 /HPF (NONE SEEN); Urine Culture Reflex Order NOT NEEDED; Urine Mucus 1+ /HPF (NONE SEEN); Urine RBC <5 /HPF (NONE SEEN)
--- NOTE | 2018-07-09 12:52 | EDPHYS ---
Physician Documentation [facility] Name: Isis Schultz Age: 87 yrs Sex: Male : 1930 Arrival Date: 07/09/2018 Time: 09:38 Bed 15 Private MD: ED Physician Phillip Parikh HPI: 07/09 11:14 This 87 yrs old Male presents to ER via EMS with complaints of Fever, High jr8 Blood Pressure. 11:14 The patient reports fever, not measured (subjective). Onset: The symptoms/episode jr8 began/occurred acutely, today. Modifying factors: there are no obvious modifying factors. Associated signs and symptoms: Pertinent positives: None. Severity of symptoms: At their worst the symptoms were mild in the emergency department the symptoms are unchanged. It is unknown whether or not the patient has had similar symptoms in the past. It is unknown whether or not the patient has recently seen a physician. Patient sent to ED after NH discovered that he had hypertension and was running fever this morning. Patient alert to person, place, event upon arrival. Spencer any pain or specific s/s. Historical: - Allergies: 10:04 Amoxicillin; bp - Home Meds: 10:04 amlodipine 5 mg tab 1 tab once daily [Active]; apixaban Oral 1 tab 2 times per day bp [Active]; Caltrate 600 + D 600 mg (1,500 mg)-800 unit Oral chew daily [Active]; donepezil 10 mg Oral tab once daily [Active]; doxazosin 2 mg Oral tab 0.5 tab twice a day [Active]; Fish Oil 360-1,200 mg Oral cap twice a day [Active]; furosemide 40 mg Oral tab 1 tab once daily as needed [Active]; gabapentin 300 mg Oral cap 2 caps [Active]; hydralazine 50 mg Oral tab daily [Active]; hydrochlorothiazide 25 mg Oral tab 1 tab once daily for Hypertension [Active]; immodium twice a day [Active]; Messi 128 2 % Opht drop twice a day [Active]; potassium chloride 10 mEq Oral TbER 1 cap once daily [Active]; PreserVision AREDS Oral twice a day [Active]; soothe eye drops twice a day [Active]; tamsulosin 0.4 mg Oral cp24 1 cap once daily [Active]; tramadol-acetaminophen 37.5-325 mg Oral tab 1 tabs three times a day as needed for pain [Active]; - PMHx: 10:04 Atrial Fib; GERD; Hypertension; Kidney stones; LYMPHOMA; melanoma; sjoger syndrome; bp Alzheimers; - Immunization history:: Adult Immunizations up to date. - Social history:: Smoking status: Patient/guardian denies using tobacco. - Ebola Screening: : Patient negative for fever greater than or equal to 101.5 degrees Fahrenheit, and additional compatible Ebola Virus Disease symptoms Patient denies exposure to infectious person Patient denies travel to an Ebola-affected area in the 21 days before illness onset No symptoms or risks identified at this time. ROS: 11:14 Eyes: Negative for injury, pain, redness, and discharge, ENT: Negative for injury, jr8 pain, and discharge, Neck: Negative for injury, pain, and swelling, Cardiovascular: Negative for chest pain, palpitations, and edema, Respiratory: Negative for shortness of breath, cough, wheezing, and pleuritic chest pain, Abdomen/GI: Negative for abdominal pain, nausea, vomiting, diarrhea, and constipation, Back: Negative for injury and pain, MS/Extremity: Negative for injury and deformity, Skin: Negative for injury, rash, and discoloration, Neuro: Negative for headache, weakness, numbness, tingling, and seizure. 11:14 Constitutional: Positive for fever. Exam: 11:14 Eyes: Pupils equal round and reactive to light, extra-ocular motions intact. Lids and jr8 lashes normal. Conjunctiva and sclera are non-icteric and not injected. Cornea within normal limits. Periorbital areas with no swelling, redness, or edema. ENT: Nares patent. No nasal discharge, no septal abnormalities noted. Tympanic membranes are normal and external auditory canals are clear. Oropharynx with no redness, swelling, or masses, exudates, or evidence of obstruction, uvula midline. Mucous membranes moist. Neck: Trachea midline, no thyromegaly or masses palpated, and no cervical lymphadenopathy. Supple, full range of motion without nuchal rigidity, or vertebral point tenderness. No Meningismus. Cardiovascular: Regular rate and rhythm with a normal S1 and S2. No gallops, murmurs, or rubs. Normal PMI, no JVD. No pulse deficits. Respiratory: Lungs have equal breath sounds bilaterally, clear to auscultation and percussion. No rales, rhonchi or wheezes noted. No increased work of breathing, no retractions or nasal flaring. Abdomen/GI: Soft, non-tender, with normal bowel sounds. No distension or tympany. No guarding or rebound. No evidence of tenderness throughout. Back: No spinal tenderness. No costovertebral tenderness. Full range of motion. Skin: Warm, dry with normal turgor. Normal color with no rashes, no lesions, and no evidence of cellulitis. MS/ Extremity: Pulses equal, no cyanosis. Neurovascular intact. Full, normal range of motion. Neuro: Awake and alert, GCS 15, oriented to person, place, time, and situation. Cranial nerves II-XII grossly intact. Motor strength 5/5 in all extremities. Sensory grossly intact. Cerebellar exam normal. Normal gait. 11:14 Head/face: Noted is top of head with ulcerative, scabbed lesion approximately 2.5 cm in diameter . Vital Signs: 10:04 BP 133 / 113; Pulse 105; Resp 16; Temp 99.8; Pulse Ox 100% ; Weight 90.72 kg; bp 10:28 BP 149 / 129; Pulse 99; Resp 20; Pulse Ox 100% ; bp MDM: 09:39 Patient medically screened. [facility] 12:46 Data reviewed: vital signs, nurses notes, lab test result(s), EKG, radiologic studies, [facility] CT scan, plain films. Data interpreted: Pulse oximetry: on room air is 100 %. Interpretation: normal. Counseling: I had a detailed discussion with the patient and/or guardian regarding: the historical points, exam findings, and any diagnostic results supporting the discharge/admit diagnosis, lab results, radiology results, the need for outpatient follow up, a family practitioner, to return to the emergency department if symptoms worsen or persist or if there are any questions or concerns that arise at home. ED course: No definitive bacterial source noted on labs or imaging. Patient continues to be without fever. No other significant vital sign abnormalities. Slight increase in creatinine. Patient adequately hydrated with NS via IV. Needs to f/u with PCP in next 24-48 hours. . 07/09 09:54 Order name: CBC with Diff [facility] 07/09 09:54 Order name: Basic Metabolic Panel [facility] 07/09 09:55 Order name: Magnesium [facility] 07/09 10:47 Order name: Basic Metabolic Panel; Complete Time: 10:55 EDUT 07/09 10:47 Order name: Magnesium; Complete Time: 10:55 EDUT 07/09 10:55 Order name: CBC with Automated Diff; Complete Time: 10:55 EDMS 07/09 09:54 Order name: XRAY Chest (1 view) [facility] 07/09 10:38 Order name: RAD; Complete Time: 10:55 EDMS 07/09 10:56 Order name: CT Abd/Pelvis - Without Cont [facility] 07/09 11:41 Order name: CT; Complete Time: 11:51 EDMS 07/09 11:52 Order name: Urine Microscopic Only; Complete Time: 12:46 [facility] 07/09 13:48 Order name: Urine Dipstick--Ancillary (enter results); Complete Time: 14:04 bd 07/09 11:52 Order name: Urine Dipstick-Ancillary (obtain specimen); Complete Time: 12:27 [facility] 07/09 11:52 Order name: Cath; Complete Time: 12:27 [facility] 07/09 12:17 Order name: EKG Electrocardiogram EDMS Administered Medications: 10:56 Drug: NS 0.9% 1000 ml Route: IV; Rate: 1000 ml; Site: left hand; bp 14:13 Follow up: IV Status: Completed infusion; IV Intake: 1000ml bp 12:30 Drug: Rocephin - (cefTRIAXone) 1 grams Route: IVPB; Infused Over: 30 mins; Site: left bp hand; 13:18 Follow up: IV Status: Completed infusion; IV Intake: 50ml bp Disposition: 18:07 Co-signature as Attending Physician, Phillip Parikh MD I agree with the assessment and saba plan of care. Disposition: 07/09/18 12:51 Discharged to Home. Impression: Dehydration. - Condition is Stable. - Discharge Instructions: Dehydration, Elderly. - Medication Reconciliation Form, Thank You Letter, Antibiotic Education, Prescription Opioid Use form. - Follow up: Private Physician; When: 1 - 2 days; Reason: Recheck today's complaints, Continuance of care, Re-evaluation by your physician. - Problem is new. - Symptoms have improved. Signatures: Dispatcher [employer] EDUT Phillip Parikh MD MD cha Roszak, Josh, PA PA jr8 Bob Ding, RN RN bp Corrections: (The following items were deleted from the chart) 14:14 12:51 07/09/2018 12:51 Discharged to Home. Impression: Dehydration. Condition is bp Stable. Forms are Medication Reconciliation Form, Thank You Letter, Antibiotic Education, Prescription Opioid Use. Follow up: Private Physician; When: 1 - 2 days; Reason: Recheck today's complaints, Continuance of care, Re-evaluation by your physician. Problem is new. Symptoms have improved. jr8
--- NOTE | 2018-07-09 12:52 | ER ---
Nurse's Notes [facility] Name: Isis Schultz Age: 87 yrs Sex: Male : 1930 Arrival Date: 07/09/2018 Time: 09:38 Bed 15 Private MD: Diagnosis: Dehydration Presentation: 07/09 09:39 Presenting complaint: EMS states: SENT FROM [facility] FOR HYPERTENSION AND FEVER. bp Transition of care: patient was received from another setting of care (long-term care facility), [facility]. Onset of symptoms is unknown. Risk Assessment: Do you want to hurt yourself or someone else? Patient reports no desire to harm self or others. Initial Sepsis Screen: Does the patient meet any 2 criteria? HR > 90 bpm. No. Patient's initial sepsis screen is negative. Does the patient have a suspected source of infection? No. Patient's initial sepsis screen is negative. Care prior to arrival: IV initiated. 20 GA, in the left hand. 09:39 Method Of Arrival: EMS: [facility] bp 09:39 Acuity: CAROL ANN 3 bp Triage Assessment: 10:04 General: Appears in no apparent distress. comfortable, Behavior is calm. General: 87YO bp [facility] PT SENT FOR FEVER AND HYPERTENSION. PT AFEBRILE AND NORMO-TENSIVE. Pain: Denies pain. EENT: No deficits noted. Neuro: Level of Consciousness is awake, confused, Oriented to AT BASELINE. Cardiovascular: Rhythm is atrial flutter. Respiratory: Airway is patent Respiratory effort is even, unlabored, Respiratory pattern is regular, symmetrical. GI: No signs and/or symptoms were reported involving the gastrointestinal system. : No signs and/or symptoms were reported regarding the genitourinary system. Derm: No deficits noted. Musculoskeletal: Circulation, motion, and sensation intact. Range of motion: limited in all extremities. Historical: - Allergies: 10:04 Amoxicillin; bp - Home Meds: 10:04 amlodipine 5 mg tab 1 tab once daily [Active]; apixaban Oral 1 tab 2 times per day bp [Active]; Caltrate 600 + D 600 mg (1,500 mg)-800 unit Oral chew daily [Active]; donepezil 10 mg Oral tab once daily [Active]; doxazosin 2 mg Oral tab 0.5 tab twice a day [Active]; Fish Oil 360-1,200 mg Oral cap twice a day [Active]; furosemide 40 mg Oral tab 1 tab once daily as needed [Active]; gabapentin 300 mg Oral cap 2 caps [Active]; hydralazine 50 mg Oral tab daily [Active]; hydrochlorothiazide 25 mg Oral tab 1 tab once daily for Hypertension [Active]; immodium twice a day [Active]; Messi 128 2 % Opht drop twice a day [Active]; potassium chloride 10 mEq Oral TbER 1 cap once daily [Active]; PreserVision AREDS Oral twice a day [Active]; soothe eye drops twice a day [Active]; tamsulosin 0.4 mg Oral cp24 1 cap once daily [Active]; tramadol-acetaminophen 37.5-325 mg Oral tab 1 tabs three times a day as needed for pain [Active]; - PMHx: 10:04 Atrial Fib; GERD; Hypertension; Kidney stones; LYMPHOMA; melanoma; sjoger syndrome; bp Alzheimers; - Immunization history:: Adult Immunizations up to date. - Social history:: Smoking status: Patient/guardian denies using tobacco. - Ebola Screening: : Patient negative for fever greater than or equal to 101.5 degrees Fahrenheit, and additional compatible Ebola Virus Disease symptoms Patient denies exposure to infectious person Patient denies travel to an Ebola-affected area in the 21 days before illness onset No symptoms or risks identified at this time. Screenin:06 Abuse screen: Denies threats or abuse. Denies injuries from another. Nutritional bp screening: No deficits noted. Tuberculosis screening: No symptoms or risk factors identified. Fall Risk None identified. Assessment: 10:06 General: SEE TRIAGE NOTE. PT APPEARS SAME LAST ER VISIT. bp 12:00 Reassessment: ALL CURRENT ORDERS COMPLETED, DISPO PENDING. bp 13:53 Reassessment: PT D/C. TRANSPORT PENDING. bp 14:11 Reassessment: [facility] AT [facility]/S FOR TRANSPORT HOME. bp Vital Signs: 10:04 BP 133 / 113; Pulse 105; Resp 16; Temp 99.8; Pulse Ox 100% ; Weight 90.72 kg; bp 10:28 BP 149 / 129; Pulse 99; Resp 20; Pulse Ox 100% ; bp ED Course: 09:38 Patient arrived in ED. bp 09:39 Cuba Hunt PA is PHCP. jr8 09:39 Phillip Parikh MD is Attending Physician. jr8 09:42 Triage completed. bp 10:02 Bob Ding, RN is Primary Nurse. bp 10:04 Arm band placed on. bp 10:06 Patient has correct armband on for positive identification. Bed in low position. Call bp light in reach. Side rails up X2. 10:06 Maintain EMS IV. Dressing intact. Good blood return noted. Site clean \T\ dry. Gauge \T\ bp site: 20 GAUGE LEFT HAND. 11:[address] vr 11:18 CT completed. Patient tolerated procedure well. Patient moved back from CT. vr 14:12 No provider procedures requiring assistance completed. IV discontinued, intact, bp bleeding controlled, No redness/swelling at site. Pressure dressing applied. Administered Medications: 10:56 Drug: NS 0.9% 1000 ml Route: IV; Rate: 1000 ml; Site: left hand; bp 14:13 Follow up: IV Status: Completed infusion; IV Intake: 1000ml bp 12:30 Drug: Rocephin - (cefTRIAXone) 1 grams Route: IVPB; Infused Over: 30 mins; Site: left bp hand; 13:18 Follow up: IV Status: Completed infusion; IV Intake: 50ml bp Intake: 13:18 IV: 50ml; Total: 50ml. bp 14:13 IV: 1000ml; Total: 1050ml. bp Outcome: 12:51 Discharge ordered by . jr8 14:[address] Report called to [facility] bp 14:12 Condition: stable 14:12 Discharge instructions given to jail. 14:14 Patient left the ED. bp Signatures: Hellen Kang Josh, PA PA jr8 Bob Ding, RN RN bp Corrections: (The following items were deleted from the chart) 10:28 10:04 Temp 99.8F; 90.72 kg; bp bp
[2018-07-09] MEDS ORDERED: CEFTRIAXONE/SWI 1gm 1 GM/10 ML SYR ONE (13:01)
[2018-07-09 14:02] LABS: Urine Blood NEGATIVE (NEG); Urine Glucose NEGATIVE (NEG); Urine Specific Gravity >1.030 (1.005-1.030)
[2018-07-09 14:03] LABS: Urine Protein 1+ (NEG)
[2018-07-09 14:23] VITALS: TEMP 99.8; O2SAT 100
[2018-07-09 14:25] VITALS: BP 149/129
--- NOTE | 2018-07-09 15:12 | EKG ---
Test Date: 2018-07-09 Test Time: 09:37:01 Non Destructive Testing Inspector: ODALYS MEASUREMENT RESULTS: Intervals: Rate: 117 SC: QRSD: 98 QT: 332 QTc: 463 Mchenry: P: SC: QRS: -15 T: 166 INTERPRETIVE STATEMENTS: Atrial fibrillation with rapid ventricular response with premature ventricular or aberrantly conducted complexes ST & T wave abnormality, NON SPECIFIC Abnormal ECG Compared to ECG 06/08/2018 14:59:53 no significant change from previous ECG Electronically Signed On 07-09-18 15:11:41 AQUACULTURE DIRECTOR by Reynold Macedo
== END 2018-07-09 14:14 | disposition home or self-care (01) ==
LOC: ER 09:25
DX: E86.0 Dehydration (principal); I10 Essential (primary) hypertension; I48.91 Unspecified atrial fibrillation; G30.9 Alzheimer's disease, unspecified; F02.80 Dementia in other diseases classified elsewhere, unspecified severity, without behavioral disturbance, psychotic disturbance, mood disturbance, and anxiety; Z88.1 Allergy status to other antibiotic agents
CPT/HCPCS: 36415; 71045; 74176; 80048; 81003; 81015; 83735; 85025; 93005; 96361; 96365; 99284; J0696; J7030

== ENCOUNTER 2018-07-10 12:52 | Inpatient (IN) | payer OTHER ==
--- OUTSIDE RECORDS SUMMARY | 2018-07-10 12:55 | XMS REPORT | Clinical Summary ---
:1930 Author Organization [facility]ly [facility] Address [address] [place] [address] Care Team Providers Name Role Phone Richard [...] Not on file Results Not on fileafter 07/09/2017 Insurance Payer Benefit Plan / Subscriber ID Type Phone Address Group MEDICARE MEDICARE A B xxxxxxxxxx Medicare AET[employer] - AETNA MEDICARE xxxxxxxxx Maps Contracted [phone] MEDICARE MGD HMO POS 2 [id number] [place] [address] A[employer] - [place] AETNA INDEMNITY xxxxxxxxx Comm CARE NON CONTR Advance Directives For more information, please contact:[address] [phone] Code Status Date Activated Date Inactivated Comments Full Code 02/21/2017 7:01 AM 02/24/2017 6:36 PM This code status was determined by: Patient
--- OUTSIDE RECORDS SUMMARY | 2018-07-10 12:55 | XMS REPORT ---
:1930 [facility] Address [address] [place] [place] [address] Care Team Providers Name Role Phone [place] [...] Comments WHITE BLOOD CELL COUNT (BEAKER) (test qofg=683) 5.2 K/ L 4.0-10.0 RED BLOOD CELL COUNT (BEAKER) (test mwcl=784) 4.14 M/ L 4.20-5.80 HEMOGLOBIN (BEAKER) (test orjm=280) 12.8 GM/DL 13.0-16.8 HEMATOCRIT (BEAKER) (test zagk=609) 37.2 % 40.0-50.0 MEAN CORPUSCULAR VOLUME (BEAKER) (test mcmr=048) 89.9 fL 82.0-98.0 MEAN CORPUSCULAR HEMOGLOBIN (BEAKER) (test rqdq=224) 30.9 pg 27.0-33.0 MEAN CORPUSCULAR HEMOGLOBIN CONC (BEAKER) (test thlk=150) 34.4 GM/DL 32.0- 36.0 RED CELL DISTRIBUTION WIDTH (BEAKER) (test tmxc=983) 16.4 % 10.3-14.2 PLATELET COUNT (BEAKER) (test zvct=989) 133 K/CU MM 150-430 MEAN PLATELET VOLUME (BEAKER) (test vlia=951) 7.0 fL 6.5-10.5 NUCLEATED RED BLOOD CELLS (BEAKER) (test pbwz=398) 0 /100 WBC 0-0 NEUTROPHILS RELATIVE PERCENT (BEAKER) (test aymw=144) 72 % LYMPHOCYTES RELATIVE PERCENT (BEAKER) (test stro=360) 21 % MONOCYTES RELATIVE PERCENT (BEAKER) (test fqie=940) 5 % EOSINOPHILS RELATIVE PERCENT (BEAKER) (test tcgr=557) 1 % BASOPHILS RELATIVE PERCENT (BEAKER) (test jppv=040) 0 % NEUTROPHILS ABSOLUTE COUNT (BEAKER) (test heiz=646) 3.77 K/ L 1.80-8.00 LYMPHOCYTES ABSOLUTE COUNT (BEAKER) (test wdij=656) 1.11 K/ L 1.48-4.50 MONOCYTES ABSOLUTE COUNT (BEAKER) (test qurs=744) 0.28 K/ L 0.00-1.30 EOSINOPHILS ABSOLUTE COUNT (BEAKER) (test nocq=163) 0.06 K/ L 0.00-0.50 BASOPHILS ABSOLUTE COUNT (BEAKER) (test omxc=147) 0.00 K/ L 0.00-0.20 0.00POCT-GLUCOSE [id number] 21:13:00 Test Item Value Reference Range Comments POC-GLUCOSE METER (BEAKER) 116 mg/dL 70-110 TESTED AT [address] (test qtqh=7703) [place] [address] POCT-GLUCOSE [id number] 12:11:00 Test Item Value Reference Range Comments POC-GLUCOSE METER (BEAKER) 120 mg/dL 70-110 TESTED AT [address] (test wvwn=3644) [place] [address] POCT-GLUCOSE [id number] 08:22:00 Test Item Value Reference Range Comments POC-GLUCOSE METER (BEAKER) 114 mg/dL 70-110 TESTED AT [address] (test sdob=2018) [place] [address] BASIC METABOLIC [id number] 05:49:00 Test Item Value Reference Range Comments SODIUM (BEAKER) (test 134 meq/L 136-145 chhk=106) POTASSIUM (BEAKER) (test 3.6 meq/L 3.5-5.1 wvyg=607) CHLORIDE (BEAKER) (test 102 meq/L 98-107 ecjl=336) CO2 (BEAKER) (test 23 meq/L 22-29 srcb=117) BLOOD UREA NITROGEN 24 mg/dL 7-21 (BEAKER) (test yrpg=595) CREATININE (BEAKER) (test 1.09 mg/dL 0.57-1.25 nbgo=465) GLUCOSE RANDOM (BEAKER) 95 mg/dL 70-105 (test fkka=317) CALCIUM (BEAKER) (test 8.2 mg/dL 8.4-10.2 fidq=941) EGFR (BEAKER) (test 64 mL/min/1.73 sq m ESTIMATED GFR IS NOT pqxu=4391) ACCURATE CREATININE CLEARANCE IN PREDICTING GLOMERULAR FILTRATION RATE. ESTIMATED GFR IS NOT APPLICABLE FOR DIALYSIS PATIENTS. Once on admission and Daily AM afterwardsCBC W/PLT COUNT & AUTO [id number] 05:30:00 Test Item Value Reference Range Comments WHITE BLOOD CELL COUNT (BEAKER) (test knnv=062) 5.0 K/ L 4.0-10.0 RED BLOOD CELL COUNT (BEAKER) (test gzqg=866) 3.96 M/ L 4.20-5.80 HEMOGLOBIN (BEAKER) (test rnej=926) 12.2 GM/DL 13.0-16.8 HEMATOCRIT (BEAKER) (test nobj=583) 35.6 % 40.0-50.0 MEAN CORPUSCULAR VOLUME (BEAKER) (test jppg=591) 90.1 fL 82.0-98.0 MEAN CORPUSCULAR HEMOGLOBIN (BEAKER) (test 30.8 pg 27.0-33.0 ywct=732) MEAN CORPUSCULAR HEMOGLOBIN CONC (BEAKER) (test 34.2 GM/DL 32.0-36.0 vebe=120) RED CELL DISTRIBUTION WIDTH (BEAKER) (test 16.3 % 10.3-14.2 mydm=665) PLATELET COUNT (BEAKER) (test uxzc=659) 136 K/CU MM 150-430 MEAN PLATELET VOLUME (BEAKER) (test jrwy=196) 7.2 fL 6.5-10.5 NUCLEATED RED BLOOD CELLS (BEAKER) (test 0 /100 WBC 0-0 raev=083) NEUTROPHILS RELATIVE PERCENT (BEAKER) (test 61 % vaim=613) LYMPHOCYTES RELATIVE PERCENT (BEAKER) (test 21 % bxmh=028) MONOCYTES RELATIVE PERCENT (BEAKER) (test 17 % zcwk=619) EOSINOPHILS RELATIVE PERCENT (BEAKER) (test 1 % tgyp=314) BASOPHILS RELATIVE PERCENT (BEAKER) (test 0 % gwro=776) NEUTROPHILS ABSOLUTE COUNT (BEAKER) (test 3.02 K/ L 1.80-8.00 ztvd=540) LYMPHOCYTES ABSOLUTE COUNT (BEAKER) (test 1.06 K/ L 1.48-4.50 ytxq=161) MONOCYTES ABSOLUTE COUNT (BEAKER) (test 0.84 K/ L 0.00-1.30 rwtu=378) EOSINOPHILS ABSOLUTE COUNT (BEAKER) (test 0.04 K/ L 0.00-0.50 ajqf=542) BASOPHILS ABSOLUTE COUNT (BEAKER) (test 0.01 K/ L 0.00-0.20 gets=257) 0.00POCT-GLUCOSE [id number] 22:59:00 Test Item Value Reference Range Comments POC-GLUCOSE METER (BEAKER) 103 mg/dL 70-110 TESTED AT [address] (test lquh=0113) [place] [address] POCT-GLUCOSE [id number] 17:41:00 Test Item Value Reference Range Comments POC-GLUCOSE METER (BEAKER) 126 mg/dL 70-110 TESTED AT [address] (test xfys=6971) [place] [address] POCT-GLUCOSE [id number] 13:19:00 Test Item Value Reference Range Comments POC-GLUCOSE METER (BEAKER) 112 mg/dL 70-110 TESTED AT [address] (test jmly=0324) [place] [address] HEMOGLOBIN [id number] 08:58:00 Test Item Value Reference Range Comments HEMOGLOBIN A1C (BEAKER) (test ydsc=120) 5.4 % 4.3-6.1 POCT-GLUCOSE [id number] 07:53:00 Test Item Value Reference Range Comments POC-GLUCOSE METER (BEAKER) 103 mg/dL 70-110 TESTED AT [address] (test jifn=2908) [place] [address] [id number] 04:13:00 Test Item Value Reference Range Comments PHOSPHORUS (BEAKER) (test pddf=278) 2.2 mg/dL 2.3-4.7 Once on admission and Daily AM afterwardsOnce on admission and Daily AM afterwardsOnce on admission and Daily AM [id number] 04:13:00 Test Item Value Reference Range Comments MAGNESIUM (BEAKER) (test urzu=309) 1.8 mg/dL 1.6-2.6 Once on admission and Daily AM afterwardsOnce on admission and Daily AM afterwardsOnce on admission and Daily AM afterwardsBASIC METABOLIC [id number] 04:13:00 Test Item Value Reference Range Comments SODIUM (BEAKER) (test 139 meq/L 136-145 uzso=847) POTASSIUM (BEAKER) (test 3.7 meq/L 3.5-5.1 tcxt=166) CHLORIDE (BEAKER) (test 106 meq/L 98-107 gomu=088) CO2 (BEAKER) (test 26 meq/L 22-29 ycqj=575) BLOOD UREA NITROGEN 27 mg/dL 7-21 (BEAKER) (test npcz=588) CREATININE (BEAKER) (test 1.17 mg/dL 0.57-1.25 hzhj=700) GLUCOSE RANDOM (BEAKER) 95 mg/dL 70-105 (test wczm=134) CALCIUM (BEAKER) (test 8.2 mg/dL 8.4-10.2 bohk=160) EGFR (BEAKER) (test 59 mL/min/1.73 sq m ESTIMATED GFR IS NOT snxo=5778) ACCURATE CREATININE CLEARANCE IN PREDICTING GLOMERULAR FILTRATION RATE. ESTIMATED GFR IS NOT APPLICABLE FOR DIALYSIS PATIENTS. Once on admission and Daily AM afterwardsOnce on admission and Daily AM afterwardsOnce on admission and Daily AM afterwardsCBC W/PLT COUNT & AUTO [id number] 03:57:00 Test Item Value Reference Range Comments WHITE BLOOD CELL COUNT (BEAKER) (test ncmk=802) 6.9 K/ L 4.0-10.0 RED BLOOD CELL COUNT (BEAKER) (test toql=350) 3.71 M/ L 4.20-5.80 HEMOGLOBIN (BEAKER) (test evhl=589) 11.7 GM/DL 13.0-16.8 HEMATOCRIT (BEAKER) (test ccfq=897) 33.7 % 40.0-50.0 MEAN CORPUSCULAR VOLUME (BEAKER) (test oboj=211) 90.8 fL 82.0-98.0 MEAN CORPUSCULAR HEMOGLOBIN (BEAKER) (test 31.4 pg 27.0-33.0 brdp=403) MEAN CORPUSCULAR HEMOGLOBIN CONC (BEAKER) (test 34.6 GM/DL 32.0-36.0 epzo=626) RED CELL DISTRIBUTION WIDTH (BEAKER) (test 14.3 % 10.3-14.2 xvff=127) PLATELET COUNT (BEAKER) (test ojeb=788) 122 K/CU MM 150-430 MEAN PLATELET VOLUME (BEAKER) (test pwwr=810) 6.6 fL 6.5-10.5 NUCLEATED RED BLOOD CELLS (BEAKER) (test 0 /100 WBC 0-0 oogx=031) NEUTROPHILS RELATIVE PERCENT (BEAKER) (test 63 % dfko=329) LYMPHOCYTES RELATIVE PERCENT (BEAKER) (test 22 % ljmy=503) MONOCYTES RELATIVE PERCENT (BEAKER) (test 14 % vokg=741) EOSINOPHILS RELATIVE PERCENT (BEAKER) (test 1 % keam=834) BASOPHILS RELATIVE PERCENT (BEAKER) (test 0 % qhip=514) NEUTROPHILS ABSOLUTE COUNT (BEAKER) (test 4.35 K/ L 1.80-8.00 kdmy=728) LYMPHOCYTES ABSOLUTE COUNT (BEAKER) (test 1.53 K/ L 1.48-4.50 ynal=230) MONOCYTES ABSOLUTE COUNT (BEAKER) (test 0.96 K/ L 0.00-1.30 qipk=759) EOSINOPHILS ABSOLUTE COUNT (BEAKER) (test 0.05 K/ L 0.00-0.50 uxwl=564) BASOPHILS ABSOLUTE COUNT (BEAKER) (test 0.00 K/ L 0.00-0.20 qkgz=971) 0.00POCT-GLUCOSE [id number] 00:35:00 Test Item Value Reference Range Comments POC-GLUCOSE METER (BEAKER) 109 mg/dL 70-110 TESTED AT [address] (test glsb=9241) [place] [id number] POCT-GLUCOSE [id number] 21:03:00 Test Item Value Reference Range Comments POC-GLUCOSE METER (BEAKER) 149 mg/dL 70-110 TESTED AT [address] (test mbit=3337) [place] [id number] POCT-GLUCOSE [id number] 12:26:00 Test Item Value Reference Range Comments POC-GLUCOSE METER (BEAKER) 153 mg/dL 70-110 TESTED AT [address] (test egtm=1300) [place] [address] [id number] 10:44:00 Test Item Value Reference Range Comments RPR SCREEN (BEAKER) (test iefr=238) Nonreactive Nonreactive SEDIMENTATION [id number] 09:43:00 Test Item Value Reference Range Comments SEDIMENTATION RATE, ERYTHROCYTE (BEAKER) (test 33 mm/HR 0-40 vany=300) VITAMIN [id number] 09:34:00 Test Item Value Reference Range Comments VITAMIN B12 (BEAKER) (test igpb=814) 317 pg/mL 213-816 TSH/FREE T4 IF [id number] 09:34:00 Test Item Value Reference Range Comments THYROID STIMULATING HORMONE (BEAKER) (test 0.69 uIU/mL 0.35-4.94 uzzy=850) TROPONIN [id number] 09:03:00 Test Item Value Reference Range Comments TROPONIN I (BEAKER) (test rzkj=956) 0.01 ng/mL 0.00-0.03 Effective 06/24/2014: Reference Range [...] tachyarrhythmia.Once on admission and Daily AM afterwardsLIPID [id number] 08:56:00 Test Item Value Reference Range Comments TRIGLYCERIDES (BEAKER) (test foiu=916) 46 mg/dL CHOLESTEROL (BEAKER) (test shhp=171) 201 mg/dL HDL CHOLESTEROL (BEAKER) (test msju=405) 55 mg/dL LDL CHOLESTEROL CALCULATED (BEAKER) (test 137 mg/dL ixur=416) Triglyceride Reference Range: Low Risk <150 Borderline 150- 199 High Risk 200-499 Very High Risk >=500Cholesterol Reference Range: Low Risk <200 Borderline 200-239 High Risk > 240HDL Cholesterol Reference Range: Low Risk >=60 High Risk <40LDL Cholesterol Reference Range: Optimal <100 Near Optimal 100-129 Borderline 130-159 High 160-189 Very High >=190 Once on admission and Daily AM afterwardsBASIC METABOLIC [id number] 08:56:00 Test Item Value Reference Range Comments SODIUM (BEAKER) (test 137 meq/L 136-145 jdja=593) POTASSIUM (BEAKER) (test 3.8 meq/L 3.5-5.1 nxjb=474) CHLORIDE (BEAKER) (test 101 meq/L 98-107 lxuh=340) CO2 (BEAKER) (test 24 meq/L 22-29 iavw=449) BLOOD UREA NITROGEN 23 mg/dL 7-21 (BEAKER) (test fzwv=093) CREATININE (BEAKER) (test 1.12 mg/dL 0.57-1.25 jthd=897) GLUCOSE RANDOM (BEAKER) 132 mg/dL 70-105 (test jczb=349) CALCIUM (BEAKER) (test 8.5 mg/dL 8.4-10.2 xuvf=381) EGFR (BEAKER) (test 62 mL/min/1.73 sq m ESTIMATED GFR IS NOT xhnx=2630) ACCURATE CREATININE CLEARANCE IN PREDICTING GLOMERULAR FILTRATION RATE. ESTIMATED GFR IS NOT APPLICABLE FOR DIALYSIS PATIENTS. Once on admission and Daily AM afterwardsHEPATIC FUNCTION [id number] 08:55: 00 Test Item Value Reference Range Comments TOTAL PROTEIN (BEAKER) (test bdoj=861) 6.7 gm/dL 6.0-8.3 ALBUMIN (BEAKER) (test hvhc=1391) 3.9 g/dL 3.5-5.0 BILIRUBIN TOTAL (BEAKER) (test dpao=931) 0.6 mg/dL 0.2-1.2 BILIRUBIN DIRECT (BEAKER) (test sxwe=681) 0.2 mg/dL 0.1-0.5 ALKALINE PHOSPHATASE (BEAKER) (test fdpo=660) 71 U/L 40-150 AST (SGOT) (BEAKER) (test ajit=380) 18 U/L 5-34 ALT (SGPT) (BEAKER) (test bzsf=751) 19 U/L 6-55 [id number] 08:38:00 Test Item Value Reference Range Comments PARTIAL THROMBOPLASTIN TIME (BEAKER) (test 29.7 seconds 22.5-36.0 ojcp=068) PROTHROMBIN [id number] 08:37:00 Test Item Value Reference Range Comments PROTIME (BEAKER) (test eqvw=364) 15.8 seconds 11.7-14.7 INR (BEAKER) (test lnoz=913) 1.3 <=5.9 RECOMMENDED COUMADIN/WARFARIN INR THERAPY RANGESSTANDARD DOSE: 2.0 - 3.0 Includes: PROPHYLAXIS forvenous thrombosis, systemic embolization; TREATMENT for venous thrombosis and/or pulmonary embolus.HIGH RISK: Target INR is 2.5-3.5 for patients with mechanical heart valves.CBC W/PLT COUNT & AUTO [id number] 08:35:00 Test Item Value Reference Range Comments WHITE BLOOD CELL COUNT (BEAKER) (test dzsr=216) 4.6 K/ L 4.0-10.0 RED BLOOD CELL COUNT (BEAKER) (test brsy=603) 4.03 M/ L 4.20-5.80 HEMOGLOBIN (BEAKER) (test rxir=910) 12.5 GM/DL 13.0-16.8 HEMATOCRIT (BEAKER) (test qvlc=322) 36.4 % 40.0-50.0 MEAN CORPUSCULAR VOLUME (BEAKER) (test zwwd=651) 90.4 fL 82.0-98.0 MEAN CORPUSCULAR HEMOGLOBIN (BEAKER) (test 31.1 pg 27.0-33.0 qkhk=944) MEAN CORPUSCULAR HEMOGLOBIN CONC (BEAKER) (test 34.5 GM/DL 32.0-36.0 pnzu=517) RED CELL DISTRIBUTION WIDTH (BEAKER) (test 14.3 % 10.3-14.2 bmuv=004) PLATELET COUNT (BEAKER) (test gtqd=338) 129 K/CU MM 150-430 MEAN PLATELET VOLUME (BEAKER) (test mmxt=583) 6.6 fL 6.5-10.5 NUCLEATED RED BLOOD CELLS (BEAKER) (test 0 /100 WBC 0-0 cpnp=510) NEUTROPHILS RELATIVE PERCENT (BEAKER) (test 83 % wuof=790) LYMPHOCYTES RELATIVE PERCENT (BEAKER) (test 13 % zvhy=606) MONOCYTES RELATIVE PERCENT (BEAKER) (test 4 % prbn=588) EOSINOPHILS RELATIVE PERCENT (BEAKER) (test 0 % dxwe=284) BASOPHILS RELATIVE PERCENT (BEAKER) (test 0 % ldms=864) NEUTROPHILS ABSOLUTE COUNT (BEAKER) (test 3.79 K/ L 1.80-8.00 qnha=082) LYMPHOCYTES ABSOLUTE COUNT (BEAKER) (test 0.58 K/ L 1.48-4.50 iqxz=823) MONOCYTES ABSOLUTE COUNT (BEAKER) (test 0.16 K/ L 0.00-1.30 zejn=110) EOSINOPHILS ABSOLUTE COUNT (BEAKER) (test 0.01 K/ L 0.00-0.50 ngio=031) BASOPHILS ABSOLUTE COUNT (BEAKER) (test 0.01 K/ L 0.00-0.20 ixvz=880) 0.00
[2018-07-10 13:40] LABS: RBC Red Blood Cell Count 3.78 M/uL (4.33-5.43)
[2018-07-10 13:41] LABS: Absolute Lymphocytes (CBC) 0.9 K/uL (0.7-4.9); Absolute Monocytes 0.7 K/uL (0.1-1.3); Absolute Neutrophil 8.7 K/uL (1.8-8.0); Basophils % 0.2 % (0-1.3); Eosinophils % 0.1 % (0-4.4); Hematocrit 34.2 % (39.6-49.0); Lymphocytes % 8.6 % (15.3-44.8); MPV 8.1 fL (7.6-11.3); Monocytes % 7.1 % (3.3-12.3)
[2018-07-10 14:02] LABS: Albumin 2.5 g/dL (3.4-5.0); Bilirubin Direct 0.5 mg/dL (0-0.2); CKMB Creatine Kinase MB 1.3 ng/mL (0.3-3.6); Potassium 3.6 mmol/L (3.5-5.1); Protein, Total 6.2 g/dL (6.4-8.2); Troponin (Emerg Dept Use Only) 0.03 ng/mL (0.0-0.045)
--- NOTE | 2018-07-10 14:27 | EDPHYS ---
Physician Documentation [facility] Name: Isis Schultz Age: 87 yrs Sex: Male : 1930 Arrival Date: 07/10/2018 Time: 12:57 Bed 2 Private MD: ED Physician Phillip Parikh HPI: 07/10 14:16 This 87 yrs old Male presents to ER via EMS with complaints of Unresponsive. saba 14:16 weak, altered. The patient presents with decreased mental status, decreased saba responsiveness, disorientation, trouble concentrating. Onset: The symptoms/episode began/occurred 1 day(s) ago. Possible causes: sepsis. Associated signs and symptoms: Pertinent positives: lightheadedness, nausea, weakness. Patient's baseline: Neuro: alert but confused. Severity of symptoms: At their worst the symptoms were moderate in the emergency department the symptoms are unchanged. The patient has experienced similar episodes in the past, several times. Historical: - Allergies: 13:00 Amoxicillin; aa5 - Home Meds: 13:00 amlodipine 5 mg tab 1 tab once daily [Active]; apixaban Oral 1 tab 2 times per day aa5 [Active]; Caltrate 600 + D 600 mg (1,500 mg)-800 unit Oral chew daily [Active]; donepezil 10 mg Oral tab once daily [Active]; doxazosin 2 mg Oral tab 0.5 tab twice a day [Active]; Fish Oil 360-1,200 mg Oral cap twice a day [Active]; furosemide 40 mg Oral tab 1 tab once daily as needed [Active]; gabapentin 300 mg Oral cap 2 caps [Active]; hydralazine 50 mg Oral tab daily [Active]; hydrochlorothiazide 25 mg Oral tab 1 tab once daily for Hypertension [Active]; immodium twice a day [Active]; Messi 128 2 % Opht drop twice a day [Active]; potassium chloride 10 mEq Oral TbER 1 cap once daily [Active]; PreserVision AREDS Oral twice a day [Active]; soothe eye drops twice a day [Active]; tamsulosin 0.4 mg Oral cp24 1 cap once daily [Active]; tramadol-acetaminophen 37.5-325 mg Oral tab 1 tabs three times a day as needed for pain [Active]; - PMHx: 13:00 Alzheimers; Atrial Fib; GERD; Hypertension; Kidney stones; LYMPHOMA; melanoma; sjoger aa5 syndrome; - Immunization history:: Adult Immunizations unknown. - Social history:: Smoking status: unknown. - Ebola Screening: : Unable to complete screening because. - Family history:: not pertinent. ROS: 14:16 Eyes: Negative for injury, pain, redness, and discharge, ENT: Negative for injury, saba pain, and discharge, Neck: Negative for injury, pain, and swelling, Cardiovascular: Negative for chest pain, palpitations, and edema, Respiratory: Negative for shortness of breath, cough, wheezing, and pleuritic chest pain, Back: Negative for injury and pain, : Negative for injury, bleeding, discharge, and swelling, Psych: Negative for depression, anxiety, suicide ideation, homicidal ideation, and hallucinations, Allergy/Immunology: Negative for hives, rash, and allergies, Endocrine: Negative for neck swelling, polydipsia, polyuria, polyphagia, and marked weight changes, Hematologic/Lymphatic: Negative for swollen nodes, abnormal bleeding, and unusual bruising. 14:16 Constitutional: Positive for body aches, malaise, poor PO intake. 14:16 Abdomen/GI: Positive for nausea, anorexia. 14:16 MS/extremity: Positive for decreased range of motion. Exam: 14:16 Constitutional: This is a well developed, well nourished patient who is awake, alert, saba and in no acute distress. Head/Face: Normocephalic, atraumatic. Eyes: Pupils equal round and reactive to light, extra-ocular motions intact. Lids and lashes normal. Conjunctiva and sclera are non-icteric and not injected. Cornea within normal limits. Periorbital areas with no swelling, redness, or edema. ENT: Nares patent. No nasal discharge, no septal abnormalities noted. Tympanic membranes are normal and external auditory canals are clear. Oropharynx with no redness, swelling, or masses, exudates, or evidence of obstruction, uvula midline. Mucous membranes moist. Neck: Trachea midline, no thyromegaly or masses palpated, and no cervical lymphadenopathy. Supple, full range of motion without nuchal rigidity, or vertebral point tenderness. No Meningismus. Chest/axilla: Normal chest wall appearance and motion. Nontender with no deformity. No lesions are appreciated. Respiratory: Lungs have equal breath sounds bilaterally, clear to auscultation and percussion. No rales, rhonchi or wheezes noted. No increased work of breathing, no retractions or nasal flaring. Abdomen/GI: Soft, non-tender, with normal bowel sounds. No distension or tympany. No guarding or rebound. No evidence of tenderness throughout. Back: No spinal tenderness. No costovertebral tenderness. Full range of motion. Male : Normal genitalia with no discharge or lesions. MS/ Extremity: Pulses equal, no cyanosis. Neurovascular intact. Full, normal range of motion. Psych: Awake, alert, with orientation to person, place and time. Behavior, mood, and affect are within normal limits. 14:16 Cardiovascular: Rate: normal, Rhythm: regular, Pulses: Pulses are 3+ in bilateral radial, brachial, femoral, popliteal, posterior tibial and and dorsalis pedis arteries.. 14:16 Respiratory: the patient does not display signs of respiratory distress, Respirations: normal, no acute changes, Breath sounds: rhonchi. 14:16 Musculoskeletal/extremity: ROM: limited active range of motion, limited passive range of motion, Circulation is intact in all extremities. Sensation intact. Compartment Syndrome exam of affected extremity: is normal. DVT Exam: no pain, no tenderness, negative Homans' sign noted on exam, no appreciated bluish discoloration, no erythema, no increased warmth, swelling. Vital Signs: 13:00 BP 104 / 54; Pulse 86; Resp 17 S; Temp 97.9; Pulse Ox 98% on R/A; jb1 13:20 BP 94 / 59; Pulse 84; Resp 16 S; Pulse Ox 98% on R/A; aa5 13:25 BP 108 / 57; Pulse 91; Resp 16 S; Pulse Ox 98% on R/A; aa5 13:30 BP 86 / 41; Pulse 89; Resp 16 S; Pulse Ox 99% on R/A; aa5 13:40 BP 103 / 67; Pulse 92; Resp 18 S; Pulse Ox 98% on R/A; aa5 13:45 BP 105 / 67; Pulse 94; Resp 18 S; Pulse Ox 99% on R/A; aa5 13:50 BP 111 / 75; Pulse 96; Resp 18 S; Pulse Ox 99% on R/A; aa5 13:55 BP 108 / 78; Pulse 97; Resp 16 S; Pulse Ox 99% on R/A; aa5 14:15 BP 100 / 66; Pulse 100; Resp 18 S; Pulse Ox 99% on R/A; aa5 14:30 Weight 84.37 kg (R); Height 5 ft. 9 in. (175.26 cm) (R); aa5 14:30 BP 117 / 99; Pulse 98; Resp 18 S; Pulse Ox 99% on R/A; aa5 15:00 BP 82 / 47; Pulse 86; Resp 16 S; Pulse Ox 98% on R/A; ca1 15:10 BP 86 / 46; Pulse 88; Resp 16 S; Pulse Ox 99% on R/A; ca1 15:20 BP 79 / 47; Pulse 89; Resp 16 S; Pulse Ox 98% on R/A; ca1 15:30 BP 90 / 54; Pulse 89; Resp 16 S; Pulse Ox 99% on R/A; ca1 15:40 BP 110 / 53; Pulse 95; Resp 16 S; Pulse Ox 100% on R/A; ca1 15:50 BP 103 / 63; Pulse 89; Resp 18 S; Pulse Ox 98% on R/A; ca1 16:00 BP 96 / 45; Pulse 71; Resp 18 S; Pulse Ox 100% on R/A; aa5 16:10 BP 99 / 55; Pulse 80; Resp 18 S; Temp 97.6(A); Pulse Ox 96% on R/A; aa5 16:20 BP 95 / 84; Pulse 101; Resp 16 S; Pulse Ox 99% on R/A; aa5 16:30 BP 107 / 41; Pulse 102; Resp 18 S; Pulse Ox 99% on R/A; aa5 16:45 BP 83 / 44; Pulse 86; Resp 16 S; Pulse Ox 99% on R/A; aa5 17:00 BP 79 / 43; Pulse 82; Resp 16 S; Pulse Ox 99% on R/A; aa5 17:05 BP 79 / 43; Pulse 88; Resp 14 S; Pulse Ox 98% ; aa5 17:10 BP 83 / 47; Pulse 85; Resp 14 S; Pulse Ox 98% on R/A; aa5 17:20 BP 84 / 52; Pulse 83; Resp 14 S; Pulse Ox 98% on R/A; aa5 17:30 BP 94 / 50; Pulse 85; Resp 18; Pulse Ox 99% on R/A; ca1 17:40 BP 91 / 59; Pulse 86; Resp 18; Pulse Ox 99% on R/A; ca1 17:50 BP 103 / 80; Pulse 85; Resp 18; Pulse Ox 99% on R/A; ca1 18:00 BP 94 / 47; Pulse 88; Resp 19; Pulse Ox 99% on R/A; ca1 14:30 Body Mass Index 27.47 (84.37 kg, 175.26 cm) aa5 Procedures: 15:00 Central Line: the site was prepped with Betadine, in sterile fashion, a triple lumen saba catheter was inserted, in the right femoral vein, in 2 attempts. placement was verified, by blood return, the site was dressed with using sterile technique, the patient tolerated the procedure, well. MDM: 13:09 Patient medically screened. [facility] 14:16 Data reviewed: vital signs, nurses notes, lab test result(s), EKG, radiologic studies. [facility] 07/10 13:15 Order name: Basic Metabolic Panel; Complete Time: 14:15 07/10 13:15 Order name: Blood Culture Adult (2) 07/10 13:15 Order name: CBC with Diff; Complete Time: 14:15 07/10 13:15 Order name: Ckmb; Complete Time: 14:15 07/10 13:15 Order name: CPK; Complete Time: 14:15 07/10 13:15 Order name: Lactate; Complete Time: 14:15 07/10 13:15 Order name: LFT's; Complete Time: 14:15 07/10 13:15 Order name: Lipase; Complete Time: 14:15 07/10 13:15 Order name: Procalcitonin; Complete Time: 14:20 07/10 13:15 Order name: Protime (+inr); Complete Time: 16:36 07/10 13:15 Order name: Ptt, Activated; Complete Time: 16:36 07/10 13:15 Order name: Troponin (emerg Dept Use Only); Complete Time: 14:15 07/10 13:15 Order name: Urine Microscopic Only 07/10 14:15 Order name: Urine Culture [facility] 07/10 13:15 Order name: Chest Single View XRAY; Complete Time: 16:36 07/10 13:15 Order name: Accucheck; Complete Time: 13:15 07/10 13:15 Order name: Cardiac monitoring; Complete Time: 13:15 iw 07/10 13:15 Order name: EKG - Nurse/Tech; Complete Time: 13:39 07/10 13:15 Order name: IV Saline Lock - Large Bore; Complete Time: 13:39 07/10 13:15 Order name: Labs collected and sent; Complete Time: 13:39 07/10 13:15 Order name: O2 Per Protocol; Complete Time: 13:15 07/10 13:15 Order name: O2 Sat Monitoring; Complete Time: 13:16 07/10 13:15 Order name: Urine Dipstick-Ancillary (obtain specimen); Complete Time: 14:31 07/10 13:39 Order name: Gallegos; Complete Time: 14:31 [facility] 07/10 14:28 Order name: CT Head Brain wo Cont; Complete Time: 16:36 [facility] 07/10 14:48 Order name: Urine Dipstick--Ancillary (enter results); Complete Time: 16:36 eb Administered Medications: 15:13 Drug: NS 0.9% (30 ml/kg) 30 ml/kg Route: IV; Rate: bolus; Site: right femoral; ca1 16:00 Follow up: IV Status: Completed infusion; IV Intake: 2000ml ; 2000cc administered per aa5 Dr. Parikh VO at this time 15:13 Drug: vancoMYCIN 1 grams Route: IVPB; Infused Over: 2 hrs; Site: right femoral; ca1 17:00 Follow up: Response: No adverse reaction; IV Status: Completed infusion aa5 15:40 Drug: Cefepime 2 grams {Note: given slow IVP per pharmacy protocol at this time..} ca1 Route: IVPB; Rate: 200 ml/hr; Infused Over: 30 mins; Site: right femoral; 17:19 Drug: NS 0.9% 500 ml Route: IV; Rate: bolus; Site: right femoral; aa5 17:45 Follow up: IV Status: Completed infusion; IV Intake: 500ml ca1 Disposition: 07/10/18 14:26 Hospitalization ordered by Fady Cazares for Inpatient Admission. Preliminary diagnosis are Dehydration, Altered mental status, unspecified, Atrial fibrillation and flutter, Dementia in other diseases classified elsewhere, Pleural effusion in conditions classified elsewhere, Unspecified kidney failure. - Bed requested for Intensive Care Unit. - Status is Inpatient Admission. ca1 - Condition is Fair. - Problem is new. - Symptoms have improved. UTI on Admission? No Signatures: Dispatcher [employer] Phillip Matias MD MD cha Williams, Irene RN BRIDGETTE iw Libby Cruz RN RN aa5 Martita Akers Sneha Carlin RN RN ca1 Corrections: (The following items were deleted from the chart) 14:29 14:26 Hospitalization Ordered by Eugenie Lopez MD for Inpatient Admission. Preliminary saba diagnosis is Dehydration; Altered mental status, unspecified; Atrial fibrillation and flutter; Dementia in other diseases classified elsewhere; Pleural effusion in conditions classified elsewhere. Bed requested for Telemetry/MedSurg (Inpatient). Status is Inpatient Admission. Condition is Fair. Problem is new. Symptoms have improved. UTI on Admission? No. saba 15:02 14:29 07/10/2018 14:26 Hospitalization Ordered by Eugenie Lopez MD for Inpatient saba Admission. Preliminary diagnosis is Dehydration; Altered mental status, unspecified; Atrial fibrillation and flutter; Dementia in other diseases classified elsewhere; Pleural effusion in conditions classified elsewhere; Unspecified kidney failure. Bed requested for Telemetry/MedSurg (Inpatient). Status is Inpatient Admission. Condition is Fair. Problem is new. Symptoms have improved. UTI on Admission? No. saba 17:14 15:02 07/10/2018 14:26 Hospitalization Ordered by Fady Cazares MD for Inpatient saba Admission. Preliminary diagnosis is Dehydration; Altered mental status, unspecified; Atrial fibrillation and flutter; Dementia in other diseases classified elsewhere; Pleural effusion in conditions classified elsewhere; Unspecified kidney failure. Bed requested for Telemetry/MedSurg (Inpatient). Status is Inpatient Admission. Condition is Fair. Problem is new. Symptoms have improved. UTI on Admission? No. saba 17:32 17:14 07/10/2018 14:26 Hospitalization Ordered by Fady Cazares MD for Inpatient eb Admission. Preliminary diagnosis is Dehydration; Altered mental status, unspecified; Atrial fibrillation and flutter; Dementia in other diseases classified elsewhere; Pleural effusion in conditions classified elsewhere; Unspecified kidney failure. Bed requested for Intensive Care Unit. Status is Inpatient Admission. Condition is Fair. Problem is new. Symptoms have improved. UTI on Admission? No. saba 18:47 17:32 07/10/2018 14:26 Hospitalization Ordered by Fady Cazares MD for Inpatient ca1 Admission. Preliminary diagnosis is Dehydration; Altered mental status, unspecified; Atrial fibrillation and flutter; Dementia in other diseases classified elsewhere; Pleural effusion in conditions classified elsewhere; Unspecified kidney failure. Bed requested for Intensive Care Unit. Status is Inpatient Admission. Condition is Fair. Problem is new. Symptoms have improved. UTI on Admission? No. eb
--- NOTE | 2018-07-10 14:27 | ER ---
Nurse's Notes [facility] Name: Isis Schultz Age: 87 yrs Sex: Male : 1930 Arrival Date: 07/10/2018 Time: 12:57 Bed 2 Private MD: Diagnosis: Dehydration;Altered mental status, unspecified;Atrial fibrillation and flutter;Dementia in other diseases classified elsewhere;Pleural effusion in conditions classified elsewhere;Unspecified kidney failure Presentation: 07/10 12:58 Presenting complaint: EMS states: found unresponsive by nurse. EMS reports AMS since aa5 yesterday, reports fever up to 101.0 F yesterday, reports pt was given Tylenol 500 mg this morning. EMS reports BP 73/59, HR 89. 12:58 Transition of care: patient was received [facility] setting [facility]. Onset of symptoms was July 10, 2018. Risk Assessment: Do you want to hurt yourself or someone else? Unable to obtain. Care prior to arrival: Glucose check: 101. 12:58 Method Of Arrival: EMS: [facility] aa5 12:58 Acuity: CAROL ANN 2 aa5 Historical: - Allergies: 13:00 Amoxicillin; aa5 - Home Meds: 13:00 amlodipine 5 mg tab 1 tab once daily [Active]; apixaban Oral 1 tab 2 times per day aa5 [Active]; Caltrate 600 + D 600 mg (1,500 mg)-800 unit Oral chew daily [Active]; donepezil 10 mg Oral tab once daily [Active]; doxazosin 2 mg Oral tab 0.5 tab twice a day [Active]; Fish Oil 360-1,200 mg Oral cap twice a day [Active]; furosemide 40 mg Oral tab 1 tab once daily as needed [Active]; gabapentin 300 mg Oral cap 2 caps [Active]; hydralazine 50 mg Oral tab daily [Active]; hydrochlorothiazide 25 mg Oral tab 1 tab once daily for Hypertension [Active]; immodium twice a day [Active]; Messi 128 2 % Opht drop twice a day [Active]; potassium chloride 10 mEq Oral TbER 1 cap once daily [Active]; PreserVision AREDS Oral twice a day [Active]; soothe eye drops twice a day [Active]; tamsulosin 0.4 mg Oral cp24 1 cap once daily [Active]; tramadol-acetaminophen 37.5-325 mg Oral tab 1 tabs three times a day as needed for pain [Active]; - PMHx: 13:00 Alzheimers; Atrial Fib; GERD; Hypertension; Kidney stones; LYMPHOMA; melanoma; sjoger aa5 syndrome; - Immunization history:: Adult Immunizations unknown. - Social history:: Smoking status: unknown. - Ebola Screening: : Unable to complete screening because. - Family history:: not pertinent. Screenin:00 Abuse screen: No signs of abuse noted. Nutritional screening: No deficits noted. ca1 Tuberculosis screening: No symptoms or risk factors identified. Fall Risk Secondary diagnosis (15 points) CVA, IV access (20 points). Mental Status- Overestimates/Forgets Limitations (15 pts.). Total Curtis Fall Scale indicates High Risk Score (45 or more points). Fall prevention measures have been instituted. Side Rails Up X 2 Placed Close to Nursing Station. Assessment: 13:18 General: Behavior is unresponsive. Pain: Unable to use pain scale. Patient is ca1 unresponsive. Neuro: Level of Consciousness is responsive to verbal and tactile stimuli.. Oriented to none. Cardiovascular: Heart tones S1 S2 present Edema is 2+ to left foot and right foot. Cardiovascular: Rhythm is irregular. Respiratory: Airway is patent Trachea midline Breath sounds are clear bilaterally. GI: Abdomen is flat. : brief. EENT:. Derm: Skin is dry, Skin is pale, Skin temperature is warm. 13:18 Cardiovascular: Edema is 2+ to right forearm and left forearm. ca1 14:30 Reassessment: Patient resting in bed with eyes closed. Patient awakens to verbal and ca1 tactile stimuli. Patient oriented to none. Equal unlabored respirations. . 15:30 Reassessment: Patient's family at bedside awaiting room assignment. Patient's family ca1 notified of wait time. Patient resting in bed with eyes closed with even unlabored respirations noted. . 16:30 Reassessment: Patient remains resting in bed with eyes closed, family at bedside. Even ca1 unlabored respirations. . 17:15 Reassessment: Dr. Parikh notified of pt's BP 79/43, Dr. Parikh states to administer aa5 500ml NS bolus and to call Dr. Cazares (admitting MD). 17:20 Reassessment: Dr. Cazares contacted and notified of pt's BP of 79/43, Dr. Cazares states to aa5 change admission to ICU, to continue monitoring patient, and that she will be in to examine patient shortly. . 17:25 Reassessment: Pt's family notified of admission to ICU and of plan of care at this aa5 time, pt's family verbalizes understanding. Awaiting ICU room assignment at this time. Pt resting in bed with eyes closed, respirations even and unlabored, skin is pale/warm/dry. . 17:45 Reassessment: Dr. Cazares at bedside speaking to patient's family about plan of care. ca1 Patient will be admitted to ICU 3. . 18:00 Reassessment: Patient resting with eyes closed, awakens to verbal and tactile stimuli. ca1 Oriented to none. Respiration are even and unlabored. A-fib on monitor. . Vital Signs: 13:00 BP 104 / 54; Pulse 86; Resp 17 S; Temp 97.9; Pulse Ox 98% on R/A; jb1 13:20 BP 94 / 59; Pulse 84; Resp 16 S; Pulse Ox 98% on R/A; aa5 13:25 BP 108 / 57; Pulse 91; Resp 16 S; Pulse Ox 98% on R/A; aa5 13:30 BP 86 / 41; Pulse 89; Resp 16 S; Pulse Ox 99% on R/A; aa5 13:40 BP 103 / 67; Pulse 92; Resp 18 S; Pulse Ox 98% on R/A; aa5 13:45 BP 105 / 67; Pulse 94; Resp 18 S; Pulse Ox 99% on R/A; aa5 13:50 BP 111 / 75; Pulse 96; Resp 18 S; Pulse Ox 99% on R/A; aa5 13:55 BP 108 / 78; Pulse 97; Resp 16 S; Pulse Ox 99% on R/A; aa5 14:15 BP 100 / 66; Pulse 100; Resp 18 S; Pulse Ox 99% on R/A; aa5 14:30 Weight 84.37 kg (R); Height 5 ft. 9 in. (175.26 cm) (R); aa5 14:30 BP 117 / 99; Pulse 98; Resp 18 S; Pulse Ox 99% on R/A; aa5 15:00 BP 82 / 47; Pulse 86; Resp 16 S; Pulse Ox 98% on R/A; ca1 15:10 BP 86 / 46; Pulse 88; Resp 16 S; Pulse Ox 99% on R/A; ca1 15:20 BP 79 / 47; Pulse 89; Resp 16 S; Pulse Ox 98% on R/A; ca1 15:30 BP 90 / 54; Pulse 89; Resp 16 S; Pulse Ox 99% on R/A; ca1 15:40 BP 110 / 53; Pulse 95; Resp 16 S; Pulse Ox 100% on R/A; ca1 15:50 BP 103 / 63; Pulse 89; Resp 18 S; Pulse Ox 98% on R/A; ca1 16:00 BP 96 / 45; Pulse 71; Resp 18 S; Pulse Ox 100% on R/A; aa5 16:10 BP 99 / 55; Pulse 80; Resp 18 S; Temp 97.6(A); Pulse Ox 96% on R/A; aa5 16:20 BP 95 / 84; Pulse 101; Resp 16 S; Pulse Ox 99% on R/A; aa5 16:30 BP 107 / 41; Pulse 102; Resp 18 S; Pulse Ox 99% on R/A; aa5 16:45 BP 83 / 44; Pulse 86; Resp 16 S; Pulse Ox 99% on R/A; aa5 17:00 BP 79 / 43; Pulse 82; Resp 16 S; Pulse Ox 99% on R/A; aa5 17:05 BP 79 / 43; Pulse 88; Resp 14 S; Pulse Ox 98% ; aa5 17:10 BP 83 / 47; Pulse 85; Resp 14 S; Pulse Ox 98% on R/A; aa5 17:20 BP 84 / 52; Pulse 83; Resp 14 S; Pulse Ox 98% on R/A; aa5 17:30 BP 94 / 50; Pulse 85; Resp 18; Pulse Ox 99% on R/A; ca1 17:40 BP 91 / 59; Pulse 86; Resp 18; Pulse Ox 99% on R/A; ca1 17:50 BP 103 / 80; Pulse 85; Resp 18; Pulse Ox 99% on R/A; ca1 18:00 BP 94 / 47; Pulse 88; Resp 19; Pulse Ox 99% on R/A; ca1 14:30 Body Mass Index 27.47 (84.37 kg, 175.26 cm) aa5 ED Course: 12:57 Patient arrived in ED. ca1 12:58 Arm band placed on. ca1 12:58 Patient has correct armband on for positive identification. Placed in gown. Bed in low aa5 position. Side rails up X2. cardiac monitor on. Pulse ox on. NIBP on. 13:05 Missed attempt(s): 22 gauge in right forearm. Bleeding controlled, band aid applied, aa5 catheter tip intact. 13:08 Missed attempt(s): 24 gauge in right hand. Bleeding controlled, band aid applied, aa5 catheter tip intact. 13:09 Phillip Parikh MD is Attending Physician. saba 13:10 Missed attempt(s): 22 gauge in left forearm. Missed attempt by Kelsy Reilly, crystal growing technician aa5 . Bleeding controlled, band aid applied, catheter tip intact. 13:20 Inserted saline lock: 22 gauge in left wrist, using aseptic technique. IV inserted by aa5 Yunier Henao crystal growing technician. 13:28 Triage completed. aa5 13:32 Chest Single View XRAY In Process Unspecified. EDMS 13:39 Sneha Carlin, RN is Primary Nurse. ca1 13:40 Assisted provider with central line placement. Set up central line tray. Triple lumen ca1 line placed in right femoral. Line placed by Phlilip Parikh MD Placement verified by blood return, Dressed with Tape, Tegaderm, Patient tolerated well. During the procedure, did the Practitioner(s) maintain a sterile field? Yes. 13:45 Gallegos cath inserted, using sterile technique, 16 Fr., balloon inflated, to gravity ca1 drainage, urine specimen collected. returned randy urine. Patient tolerated well. inserted by Yunier Henao, program instructor. 14:23 Eugenie Lopez MD is Hospitalizing Provider. saba 14:45 CT Head Brain wo Cont In Process Unspecified. EDMS 15:02 Fady Cazares MD is Hospitalizing Provider. saba 18:10 Patient admitted, IV remains in place. ca1 Administered Medications: 15:13 Drug: NS 0.9% (30 ml/kg) 30 ml/kg Route: IV; Rate: bolus; Site: right femoral; ca1 16:00 Follow up: IV Status: Completed infusion; IV Intake: 2000ml ; 2000cc administered per aa5 Dr. Parikh VO at this time 15:13 Drug: vancoMYCIN 1 grams Route: IVPB; Infused Over: 2 hrs; Site: right femoral; ca1 17:00 Follow up: Response: No adverse reaction; IV Status: Completed infusion aa5 15:40 Drug: Cefepime 2 grams {Note: given slow IVP per pharmacy protocol at this time..} ca1 Route: IVPB; Rate: 200 ml/hr; Infused Over: 30 mins; Site: right femoral; 17:19 Drug: NS 0.9% 500 ml Route: IV; Rate: bolus; Site: right femoral; aa5 17:45 Follow up: IV Status: Completed infusion; IV Intake: 500ml ca1 Intake: 16:00 IV: 2000ml; Total: 2000ml. aa5 17:45 IV: 500ml; Total: 2500ml. ca1 Output: 18:00 Urine: 200ml (Gallegos); Total: 200ml. ca1 Outcome: 14:26 Decision to Hospitalize by Provider. saba 18:10 Admitted to ICU accompanied by nurse, family with patient, via stretcher, room 3, on ca1 monitor, with chart, Report called to BRIDGETTE Terrazas 18:10 Condition: stable 18:10 Discharge instructions given to family, Instructed on the need for admit. 18:10 Patient left the ED. ca1 Signatures: Dispatcher [employer] EDYunier Vega jb1 Phillip Parikh MD MD cha Calderon, Audri, RN RN aa5 Sneha Carlin RN RN ca1 Corrections: (The following items were deleted from the chart) 18:48 18:47 Patient left the ED. ca1 ca1
--- NOTE | 2018-07-10 14:37 | RAD REPORT ---
EXAM DESCRIPTION: Lesly Single View07/10/2018 1:31 pm CLINICAL HISTORY: Fever COMPARISON: July 09 FINDINGS: A small joint effusion is present. The lungs appear clear of acute infiltrate. The heart is borderline enlarged
--- NOTE | 2018-07-10 14:50 | RAD REPORT ---
EXAM DESCRIPTION: CT - Head Brain Wo Cont - 07/10/2018 2:42 pm CLINICAL HISTORY: Dizziness COMPARISON: June 08, 2018 TECHNIQUE: Computed axial tomography of the head was obtained. IV contrast was not requested. All CT scans are performed using dose optimization technique as appropriate and may include automated exposure control or mA/KV adjustment according to patient size. FINDINGS: An intracranial bleed is not seen . The ventricles are normal in caliber. No extra-axial fluid collection is noted. Fluid within the sinuses/ mastoids is not seen. IMPRESSION: No acute intracranial abnormality is seen. If patient's symptoms persist MRI of the bra in would be recommended.
[2018-07-10] MEDS ORDERED: NA CHLORIDE 0.9% 2,000 ML ONE (14:57)
[2018-07-10] MEDS ORDERED: VANCOMYCIN 1 GM/250 ML BAG ONE (14:57)
[2018-07-10] MEDS ORDERED: CEFEPIME 0 GM/0 ML BAG IV ONE (14:58)
[2018-07-10] MEDS ORDERED: CEFAZOLIN/SWI 2gm 2 GM/20 ML SYR IVP ONE (15:00)
[2018-07-10] MEDS ORDERED: CEFEPIME/SWI 2gm 2 GM/20 ML SYR IVP ONE (15:15)
[2018-07-10 15:57] LABS: Urine Blood TRACE (NEG); Urine Glucose NEGATIVE (NEG); Urine Protein 1+ (NEG); Urine Specific Gravity >1.030 (1.005-1.030)
[2018-07-10 16:05] LABS: Protime INR 1.36
[2018-07-10] MEDS ORDERED: NA CHLORIDE 0.9% 500 ML ONE (17:17)
[2018-07-10] MEDS ORDERED: ONDANSETRON 4 MG/2 ML VIAL IV PRN (17:22)
[2018-07-10] MEDS ORDERED: ACETAMINOPHEN 500 MG TAB PO PRN (17:22)
[2018-07-10] MEDS: NA CHLORIDE 0.9% 1,000 ML IV SCH (18:31)
[2018-07-10 18:56] LABS: Urine Amorphous Sediment 1+ /HPF (NONE SEEN)
[2018-07-10 18:57] LABS: Urine Bacteria 20-50 /HPF (NONE SEEN); Urine Culture Reflex Order NOT NEEDED; Urine RBC <5 /HPF (NONE SEEN)
--- NOTE | 2018-07-10 22:35 | P.HP ---
Certification for Inpatient Patient admitted to: Inpatient With expected LOS: >2 Midnights Practitioner: I am a practitioner with admitting privileges, knowledge of patient current condition, hospital course, and medical plan of care. Services: Services provided to patient in accordance with Admission requirements found in Title 42 Section 412.3 of the Code of Federal Regulations Patient History Date of Service: 07/11/18 History of Present Illness: This is a 87-year-old male with history of dementia, hypertension, hyperlipidemia, previous CVA with right-sided residual weakness, atrial fibrillation on chronic anticoagulation therapy, and BPH admitted from a assisted living facility for altered mental status. Per family, for 1 day he has been very sleepy, not eating, not really talking. They came to the ER the day prior to this admission for fever, CT abdomen was done which is negative and patient was discharged. He returned again 1 day later with fever, increased alteration in mentation. Per family his baseline is that he cannot walk cannot feed himself but he cannot talk though the confusion has been progressively increasing since his previous CVA. In the ER, patient was given 2500 cc of IV fluids as well was, though his blood pressure remained in the 70s over 40s and he remained very sleepy. At the time of my exam, patient only arousable to pain. Allergies amoxicillin [Amoxicillin] Allergy (Severe, Verified 07/10/18 20:17) Hives/Rash Home Medications: Furosemide [Lasix*] 40 mg PO BIDP PRN 01/03/14 Tamsulosin [Flomax*] 0.4 mg PO DAILY 01/03/14 Calcium Carbonate/Vitamin D3 [Caltrate 600 Plus D3 Tablet] 1 mg PO DAILY Donepezil [Aricept*] 10 mg PO BEDTIME 04/07/16 Doxazosin Mesylate [Cardura] 1 mg PO BEDTIME 04/07/16 Acetaminophen [Tylenol Extra Strength] 1,000 mg PO Q4HP PRN 06/08/18 Aspirin 81 mg PO DAILY 06/08/18 Cranberry 1,000 mg PO TID 06/08/18 Diazepam [Valium] 5 mg PO BEDTIME PRN 06/08/18 Gentamicin Sulfate 3.5 gm OP BID 06/08/18 Hydrogen Peroxide 237 ml TP BID 06/08/18 Loperamide [Imodium*] 2 mg PO PRN PRN 06/08/18 Memantine HCl [Namenda*] 10 mg PO BID 06/08/18 Sodium Chloride [Messi-128] 3.5 gm OP BID 06/08/18 Gabapentin 600 mg PO BEDTIME 06/09/18 Atorvastatin Calcium [Lipitor] 40 mg PO BEDTIME #30 tab 06/11/18 Clopidogrel Bisulfate [Plavix*] 75 mg PO DAILY #30 tablet 06/11/18 Metoprolol Succinate [Toprol Xl*] 12.5 mg PO [id number] #30 tab 06/11/18 Pantoprazole [Protonix Tab] 40 mg PO DAILY #30 tab 06/11/18 Mirtazapine [Remeron*] 1 tab PO BEDTIME 07/10/18 Mupirocin 1 anthony TD DAILYPRN PRN 07/10/18 - Past Medical/Surgical History Has patient received pneumonia vaccine in the past: Yes Diabetic: No -: HTN -: History of lymphoma -: Atrial fibrillation on chronic anti coagulation therapy -: BPH -: Dementia -: Current melanoma-head -: Hyperlipidemia -: History CVA, right-sided residual weakness -: Patient bed-bound -: Cataract Sx-bilateral eyes -: Kidney Stones laser surgery -: Cholecystectomy Psychosocial/ Personal History: Patient currently in assisted living facility over the last year. Patient is . Patient has 3 kids. - Family History Father -: Heart disease Notes: father of heart attack Mother -: Cancer Notes: mother had skin cancer Sister -: Kidney disease Notes: sister has renal disease and dementia Brother Notes: brother has bilateral lower extremity neuropathy - Social History Smoking Status: Never smoker Alcohol use: No CD- Drugs: No Caffeine use: Yes Place of Residence: Longterm Review of Systems General: Fever, Weakness, As per HPI Eyes: Unremarkable ENT: Unremarkable Respiratory: Unremarkable Cardiovascular: Unremarkable Gastrointestinal: Unremarkable Genitourinary: Unremarkable Musculoskeletal: Unremarkable Integumentary: Unremarkable Neurological: Confusion, As per HPI Lymphatics: Unremarkable Physical Examination - Vital Signs Temperature: 97.6 F Blood Pressure: 122/51 Pulse: 96 Respirations: 19 Pulse Ox (%): 100 - Physical Exam General: In no apparent distress, Other (Responsive only to pain) HEENT: Atraumatic, PERRLA, Mucous membr. moist/pink, EOMI, Sclerae nonicteric Neck: Supple, 2+ carotid pulse no bruit, No LAD, Without JVD or thyroid abnormality Respiratory: Clear to auscultation bilaterally, Normal air movement Cardiovascular: Regular rate/rhythm, Normal S1 S2 Gastrointestinal: Normal bowel sounds, No tenderness Musculoskeletal: No tenderness Integumentary: No rashes Neurological: Abnormal speech, Abnormal affect, Dementia - Studies Laboratory Data (last 24 hrs) 07/10/18 15:08: PT 16.1 H, INR 1.36, APTT 28.3 07/10/18 13:20: WBC 10.3 D, Hgb 11.7 L, Hct 34.2 L, Plt Count 129 L D 07/10/18 13:20: Sodium 134 L, Potassium 3.6, BUN 34 H, Creatinine 2.10 H, Glucose 104, Total Bilirubin 1.0, AST 28, ALT 15, Alkaline Phosphatase 71, Lipase 67 L Assessment and Plan - Plan This is a 87 year old male with: Altered mental status, possible metabolic encephalopathy, complicated by hx of CVA with right sided residual weakness ? Infectious vs TIA Continue IV antibiotics, IVF. Follow up blood cultures MRI stroke protocol ordered though unable to be done as patient with neck contractures and unable to straighten neck out. Fall precautions, aspiration precautions Hypotension: ? septic shock. Continue IVF. May require pressors, though BP slightly improved. Center line placed in ER. Dementia- mild HTN Hold blood pressure medications for hypertension at this time. Will restart as necessary. BPH Hold medication at this time. Will restart as necessary Renal insufficiency, will continue IVF and monitor via AM labs. Atrial fibrillation with chronic anticoagulation Will restart home medications. rate controlled at this time. Code status: Discussed with . States she has an out of hospital DNR signed, and would like to make sure patient is DNR here. They would like to further discuss hospice care. DVT prophylaxis: Lovenox GI prophylaxis: Not needed at this time. Diet: NPO Disposition: Admit to ICU for further management/monitoring. Continue IV antibiotics, IV fluids. May need pressors if blood pressure does not respond to fluids. - Advance Directives Does patient have a Living Will: Yes Does patient have a Durable POA for Healthcare: Yes - Code Status/Comfort Care Code Status: Do Not Resuscitate Time Spent Managing Pts Care (In Minutes): 55
--- NOTE | 2018-07-10 22:41 | EKG ---
Test Date: 2018-07-10 Test Time: 13:22:36 Independent Crop Consultant: ODALYS MEASUREMENT RESULTS: Intervals: Rate: 83 AK: QRSD: 106 QT: 378 QTc: 444 [place]: P: AK: QRS: -23 T: -42 INTERPRETIVE STATEMENTS: Atrial flutter with variable AV block Minimal voltage criteria for LVH, may be normal variant ST & T wave abnormality, consider anterior ischemia Abnormal ECG Compared to ECG 07/09/2018 09:37:01 Left ventricular hypertrophy now present Possible ischemia now present Atrial fibrillation no longer present Ventricular premature complex(es) no longer present ST (T wave) deviation still present Electronically Signed On 07-10-18 22:40:07 [employer] by Reynold Macedo
[2018-07-11] MEDS: NA CHLORIDE 0.9% 1,000 ML IV SCH ×2 (02:48→14:00)
[2018-07-11 05:24] LABS: Absolute Lymphocytes (CBC) 0.4 K/uL (0.7-4.9); Absolute Monocytes 0.6 K/uL (0.1-1.3); Absolute Neutrophil 7.7 K/uL (1.8-8.0); Basophils % 0.3 % (0-1.3); Eosinophils % 0.3 % (0-4.4); Hematocrit 26.7 % (39.6-49.0); Lymphocytes % 4.6 % (15.3-44.8); MPV 8.3 fL (7.6-11.3); Monocytes % 6.8 % (3.3-12.3); RBC Red Blood Cell Count 2.96 M/uL (4.33-5.43)
[2018-07-11 05:41] LABS: Potassium 3.7 mmol/L (3.5-5.1)
[2018-07-11 05:42] LABS: Albumin 2.1 g/dL (3.4-5.0); Bilirubin Total 0.7 mg/dL (0.2-1.0); Magnesium 1.8 mg/dL (1.8-2.4); Phosphorus 2.7 mg/dL (2.5-4.9); Protein, Total 5.5 g/dL (6.4-8.2)
[2018-07-11 06:34] LABS: Blood Morphology Comment NOT SEEN (NOT SEEN); Platelet Estimate DECR
--- NOTE | 2018-07-11 14:42 | P.PN ---
Subjective Date of Service: 07/11/18 Subjective: Improving Patient seen and examined at bedside. and son at bedside. Chart reviewed and case discussed with nursing staff. Patient much more awake and alert this morning. Able to hold a conversation with this morning. Per , he seems to be back at baseline for mentation. Overnight, he did not require pressors for blood pressure support. Blood pressure improving on IV fluids. Review of Systems As noted Physical Examination - Vital Signs Temperature: 97.6 F Blood Pressure: 122/51 Pulse: 96 Respirations: 19 Pulse Ox (%): 100 - Physical Exam General: Alert, In no apparent distress HEENT: Atraumatic, PERRLA, EOMI Neck: Supple, JVD not distended Respiratory: Clear to auscultation bilaterally, Normal air movement Cardiovascular: Regular rate/rhythm, Normal S1 S2 Gastrointestinal: Normal bowel sounds, No tenderness Musculoskeletal: No tenderness Integumentary: No rashes Neurological: Normal speech, Normal tone, Normal affect - Studies Laboratory Data (last 24 hrs) 07/10/18 15:08: PT 16.1 H, INR 1.36, APTT 28.3 Microbiology Data (last 24 hrs): 07/10/18 13:10 Blood - Blood Anaerobic Blood Culture - Final 07/10/18 13:20 Blood - Blood Anaerobic Blood Culture - Final Assessment And Plan - Plan This is a 87 year old male with: Altered mental status, possible metabolic encephalopathy, complicated by hx of CVA with right sided residual weakness : Improving. Patient more awake and alert today. ? Infectious vs TIA Continue IV antibiotics, IVF. Follow up blood cultures, negative growth to date. MRI stroke protocol ordered though unable to be done as patient with neck contractures and unable to straighten neck out. Fall precautions, aspiration precautions Hypotension: ? septic shock. Continue IVF. May require pressors, though BP slightly improved. Center line placed in ER. Dementia- mild HTN Hold blood pressure medications for hypertension at this time. Will restart as necessary. BPH Hold medication at this time. Will restart as necessary Renal insufficiency, will continue IVF and monitor via AM labs. Atrial fibrillation with chronic anticoagulation Will restart home medications. rate controlled at this time. Code status: Discussed with . States she has an out of hospital DNR signed, and would like to make sure patient is DNR here. Social work consulted for further hospice care. [facility]. DVT prophylaxis: Lovenox GI prophylaxis: Not needed at this time. Diet: Heart healthy Disposition: Monitor in ICU for 1 more night. Continue IV antibiotics, IV fluids. His blood pressures remained stable overnight, will transfer to floor tomorrow. Physician Review: Patient Assessed, Agree with Above Assessment and Plan Time Spent Managing PTS Care (In Minutes): 45
[2018-07-11] MEDS ORDERED: MAGNESIUM SULFATE 1 gm IVPB 1 GM/100 ML BAG IV ONE (16:23)
[2018-07-11] MEDS ORDERED: KCL 20 MEQ/100 mL IVPB 20 MEQ/100 ML BAG IV SCH (17:00)
[2018-07-12] MEDS ORDERED: NA CHLORIDE 0.9% 1,000 ML ONE (02:38)
[2018-07-12 05:54] VITALS: BMI 30.2
[2018-07-12 06:21] LABS: Absolute Lymphocytes (CBC) 0.9 K/uL (0.7-4.9); Absolute Monocytes 0.8 K/uL (0.1-1.3); Absolute Neutrophil 7.9 K/uL (1.8-8.0); Basophils % 0.3 % (0-1.3); Eosinophils % 4.2 % (0-4.4); Hematocrit 29.4 % (39.6-49.0); Lymphocytes % 9.1 % (15.3-44.8); MPV 8.2 fL (7.6-11.3); Monocytes % 8.1 % (3.3-12.3); RBC Red Blood Cell Count 3.25 M/uL (4.33-5.43)
[2018-07-12 06:27] LABS: Albumin 2.2 g/dL (3.4-5.0); Bilirubin Total 0.8 mg/dL (0.2-1.0); Phosphorus 1.9 mg/dL (2.5-4.9); Potassium 3.5 mmol/L (3.5-5.1); Protein, Total 5.9 g/dL (6.4-8.2)
[2018-07-12] MEDS ORDERED: Meropenem 1,000 MG in NA CHLORIDE 0.9% 100 ML IV SCH (09:00)
[2018-07-12] MEDS ORDERED: Meropenem 1000 MG/VIAL IV SCH (09:00)
[2018-07-12] MEDS ORDERED: POTASSIUM PHOS IN 0.9 % NACL 15 MMOL/250 ML BAG IV ONE (09:12)
[2018-07-12 09:57] VITALS: O2SAT 98
[2018-07-12 16:51] VITALS: BP 126/69; TEMP 98.4
[2018-07-12] MEDS ORDERED: PROMOD 30 ML DOSE PO SCH (21:00)
[2018-07-13] MEDS ORDERED: ENSURE HIGH PROTEIN 237 ML CAN PO SCH (09:00)
== END 2018-07-12 15:30 | disposition hospice, inpatient (51) | DRG 71 ==
LOC: ER 12:52 → ERHOLD 16:11 → 3RD-ICU 18:00
PROVIDERS: ADMIT Family Medicine; ATTEND Family Medicine
PROC: 02HV33Z Insertion of Infusion Device into Superior Vena Cava, Percutaneous Approach (ICD-10-PCS; principal; 2018-07-10)
DX: G93.41 Metabolic encephalopathy (principal); I69.359 Hemiplegia and hemiparesis following cerebral infarction affecting unspecified side; I95.9 Hypotension, unspecified; I10 Essential (primary) hypertension; N40.0 Benign prostatic hyperplasia without lower urinary tract symptoms; N28.9 Disorder of kidney and ureter, unspecified; I48.91 Unspecified atrial fibrillation; Z79.01 Long term (current) use of anticoagulants; Z66 Do not resuscitate; G30.9 Alzheimer's disease, unspecified; F02.80 Dementia in other diseases classified elsewhere, unspecified severity, without behavioral disturbance, psychotic disturbance, mood disturbance, and anxiety; K21.9 Gastro-esophageal reflux disease without esophagitis; M35.00 Sjogren syndrome, unspecified
CPT/HCPCS: 36415; 51702; 70450; 71045; 74176; 80048; 80053; 80076; 81003; 81015; 82550; 82553; 82962; 83605; 83690; 83735; 84100; 84145; 84484; 85025; 85610; 85730; 87040; 87077; 87086; 87088; 87186; 87205; 93005; 96361; 96365; 96366; 96368; 96375; 99284; 99285; J0690; J0692; J0696; J3370; J3475; J7030